=== PATIENT | female | born 1960 | race American Indian/Alaskan Native ===

== ENCOUNTER 2016-11-25 13:50 | Emergency (ER) | payer OTHER ==
[2016-11-25 13:50] VITALS: BMI 23.0
[2016-11-25 14:19] VITALS: TEMP 97.8; O2SAT 100
--- NOTE | 2016-11-25 14:49 | ED PDOC ---
Arrival/HPI - General Chief Complaint: Female Genitourinary Time Seen by Provider: 11/25/16 14:23 Historian: Patient - History of Present Illness Narrative History of Present Illness (Text): 11/25/16 14:48 56 year old female whose past medical history includes diabetes presents to the emergency department with dysuria and hematuria since yesterday. Contrary to triage, patient reports blood is associated with urination, and is not vaginal bleeding. Denies abdominal pain, fever, nausea, vomiting, or diarrhea. Time/Duration: 24 hours Symptom Onset: Sudden Symptom Course: Unchanged Modifying Factors (Text): None Past Medical History - Provider Review Nursing Documentation Reviewed: Yes - Infectious Disease Hx of Infectious Diseases: None - Cardiac Hx Hypertension: Yes - Pulmonary Hx Respiratory Disorders: No - Neurological Hx Neurological Disorder: No - HEENT Hx HEENT Disorder: No - Renal Hx Renal Disorder: No - Endocrine/Metabolic Hx Diabetes Mellitus Type 2: Yes - Hematological/Oncological Hx Blood Disorders: No - Integumentary Hx Dermatological Disorder: No - Musculoskeletal/Rheumatological Hx Musculoskeletal Disorders: Yes Hx Falls: Yes Other/Comment: left leg inury 4 years ago - Gastrointestinal Hx Gastrointestinal Disorders: No - Genitourinary/Gynecological Hx Genitourinary Disorders: No - Psychiatric Hx Depression: No Hx Emotional Abuse: No Hx Physical Abuse: No Hx Substance Use: Yes - Surgical History Hx Orthopedic Surgery: Yes (B/L KNEE) Hx Tubal Ligation: Yes - Anesthesia Hx Anesthesia: No Hx Anesthesia Reactions: No Hx Malignant Hyperthermia: No - Suicidal Assessment Feels Threatened In Home Enviroment: No Family/Social History - Physician Review Nursing Documentation Reviewed: Yes Family/Social History: Unknown Family HX Smoking Status: Smoker Currrent Status Unknown Hx Alcohol Use: Yes (had a drink prior to ED arrival) Hx Substance Use: Yes Allergies/Home Meds Allergies/Adverse Reactions: Allergies No Known Allergies Allergy (Verified 11/25/16 14:16) Home Medications: Home Meds Medication Instructions Recorded Confirmed Alendronate [Fosamax] 70 mg PO 12/05/12 12/05/12 Betaine HCl/Folic Acid/Methy 1 mg PO DAILY 12/05/12 12/05/12 [B6-Folic Acid] Calcium Carbonate/Vitamin D 1 tab PO DAILY 12/05/12 12/05/12 [Caltrate 600 + D 600 mg-200 Iu] Clonazepam [Klonopin] 0.5 mg PO Q12 PRN 12/05/12 12/05/12 Furosemide [Lasix] 20 mg PO DAILY 12/05/12 12/05/12 Ibuprofen 400 mg PO Q8 PRN 12/05/12 12/05/12 Insulin Glargine,Hum.rec.anlog 20 unit SC QAM 12/05/12 12/05/12 [Lantus] Lactulose 120 ml PO Q8 12/05/12 12/05/12 Multivitamin, Minerals, and 70 1 tab PO DAILY 12/05/12 12/05/12 [P.m. Multivit/Multimineral] Potassium Chloride [Klor-Con 10] 10 meq PO DAILY 12/05/12 12/05/12 Spironolactone 50 mg PO BID 12/05/12 12/05/12 Thiamine [Thiamine HCl] 100 mg PO DAILY 12/05/12 12/05/12 Tramadol Hydrochloride [Tramadol] 100 mg PO Q8 PRN 12/05/12 12/05/12 Review of Systems - Physician Review All systems were reviewed & negative as marked: Yes - Review of Systems Constitutional: absent: Fevers Gastrointestinal: absent: Abdominal Pain, Nausea Genitourinary Female: Dysuria, Hematuria Physical Exam Vital Signs Reviewed: Yes Vital Signs Temp Pulse Resp BP Pulse Ox 11/25/16 16:00 73 18 125/76 100 11/25/16 14:18 97.8 F 89 16 124/79 100 Temperature: Afebrile Blood Pressure: Normal Pulse: Regular Respiratory Rate: Normal Appearance: Positive for: Well-Appearing, Non-Toxic, Comfortable Pain Distress: None Mental Status: Positive for: Alert and Oriented X 3 - Systems Exam Head: Present: Atraumatic, Normocephalic Pupils: Present: PERRL Extroacular Muscles: Present: EOMI Conjunctiva: Present: Normal Mouth: Present: Moist Mucous Membranes Neck: Present: Normal Range of Motion Respiratory/Chest: Present: Clear to Auscultation, Good Air Exchange. No: Respiratory Distress, Accessory Muscle Use Cardiovascular: Present: Regular Rate and Rhythm, Normal S1, S2. No: Murmurs Abdomen: Present: Normal Bowel Sounds. No: Tenderness, Distention, Peritoneal Signs Back: Present: Paraspinal Tenderness (Left paralumbar ). No: CVA Tenderness Upper Extremity: Present: Normal Inspection. No: Cyanosis, Edema Lower Extremity: Present: Normal Inspection. No: Edema Neurological: Present: GCS=15, CN II-XII Intact, Speech Normal Skin: Present: Warm, Dry, Normal Color. No: Rashes Psychiatric: Present: Alert, Oriented x 3, Normal Insight, Normal Concentration Medical Decision Making - Lab Interpretations Microbiology Results: Microbiology Results 11/25/16 16:30 Urine Urine Culture - Final Escherichia Coli Lab Results: Lab Results 11/25/16 16:30: Urine Color Light brown, Urine Appearance Cloudy, Urine pH 7.0, Ur Specific [place] 1.020, Urine Protein 100 H, Urine Glucose (UA) Negative, Urine Ketones Trace H, Urine Blood Large H, Urine Nitrate Negative, Urine Bilirubin Moderate H, Urine Urobilinogen >=8.0, Ur Leukocyte Esterase Large H, Urine RBC Tntc, Urine WBC Tntc, Ur Epithelial Cells 1 - 3, Amorphous Sediment Few, Urine Bacteria Many, Urine Other Fiber - Medication Orders Current Medication Orders: Discontinued Medications Cephalexin Monohydrate (Keflex) 500 mg PO STAT STA PRN Reason: Protocol Stop: 11/25/16 17:16 Last Admin: 11/25/16 17:23 Dose: 500 mg - Dayronibe Statement The provider has reviewed the documentation as recorded by the Gerson Dawn Provider Scribe Attestation: All medical record entries made by the Dayornibneelam were at my direction and personally dictated by me. I have reviewed the chart and agree that the record accurately reflects my personal performance of the history, physical exam, medical decision making, and the department course for this patient. I have also personally directed, reviewed, and agree with the discharge instructions and disposition. Disposition/Present on Arrival - Present on Arrival Any Indicators Present on Arrival: No History of DVT/PE: No History of Uncontrolled Diabetes: No Urinary Catheter: No History of Decub. Ulcer: No History Surgical Site Infection Following: None - Disposition Have Diagnosis and Disposition been Completed?: Yes Diagnosis: UTI (urinary tract infection) Disposition: HOME/ ROUTINE Disposition Time: 17:52 Condition: STABLE Discharge Instructions (ExitCare): Urinary Tract Infection in Women (ED) Additional Instructions: Please follow up with your doctor tomorrow. Return to the ER for any worsening symptoms, fever, or for any other concerns. Prescriptions: Cephalexin [cephalexin] 500 mg PO BID #14 cap Phenazopyridine [Pyridium] 200 mg PO TID #6 tab Referrals: Roc Acosta DO [Staff Provider] - Follow up with primary
[2016-11-25 17:01] LABS: URINE BILIRUBIN MODERATE (NEGATIVE); URINE BLOOD LARGE (NEGATIVE); URINE GLUCOSE (UA) NEGATIVE (NEGATIVE); URINE KETONE TRACE mg/dL (NEGATIVE); URINE LEUKOCYTE ESTERASE LARGE Leu/uL (NEGATIVE); URINE PROTEIN 100 mg/dL (<30 mg/dL); URINE UROBILINOGEN >=8.0 E.U./dL (<1 E.U./dL)
[2016-11-25 17:03] LABS: URINE APPEARANCE CLOUDY (CLEAR); URINE COLOR LIGHT BROWN (YELLOW)
[2016-11-25 17:11] LABS: URINE AMORPHOUS SEDIMENT FEW; URINE BACTERIA MANY (NEG); URINE RBC TNTC /hpf (0-2); URINE WBC TNTC /hpf (0-6)
[2016-11-25 17:18] VITALS: BP 125/76; PULSE 73; RESP 18
== END 2016-11-25 17:52 | disposition home or self-care (01) ==
LOC: ED 13:50
DX: N39.0 Urinary tract infection, site not specified (principal)

== ENCOUNTER 2017-03-09 11:17 | Inpatient (IN) | payer OTHER ==
[2017-03-09 11:38] VITALS: BMI 23.4
--- NOTE | 2017-03-09 12:01 | ED PDOC ---
Arrival/HPI - General Chief Complaint: Weakness/Neurological Deficit Time Seen by Provider: 03/09/17 11:32 Historian: Patient - History of Present Illness Narrative History of Present Illness (Text): 03/09/17 11:55 A 56 year old female, whose past medical history includes diabetes type 2, hypertension, and etoh abuse, presents to the emergency department complaining of generalized weakness for 1 week. Patient reports she visited Dr. Acosta for blood work a few days ago, which revealed a low blood count. Also, patient mentions she experiences on and off swelling of her legs bilaterally. Patient believes swelling is what is causing weakness. Patient notes experiencing an episode of vomiting a week ago around the time weakness began, black stool 2 days ago, and chills. She denies of any fever, nausea, diarrhea, abdominal pain , shortness of breath, chest pain, or any other complaints. Patient also states she broke her knee a while ago. PMD: Dr. Acosta Time/Duration: 1 week Symptom Onset: Gradual Symptom Course: Unchanged Past Medical History - Provider Review Nursing Documentation Reviewed: Yes - Infectious Disease Hx of Infectious Diseases: None - Cardiac Hx Cardiac Disorders: Yes Hx Hypertension: Yes Hx Peripheral Edema: Yes - Pulmonary Hx Respiratory Disorders: No - Neurological Hx Neurological Disorder: No - HEENT Hx HEENT Disorder: No - Renal Hx Renal Disorder: No - Endocrine/Metabolic Hx Endocrine Disorders: Yes Hx Diabetes Mellitus Type 2: Yes - Hematological/Oncological Hx Blood Disorders: Yes Hx Anemia: Yes Hx Blood Transfusions: No - Integumentary Hx Dermatological Disorder: No - Musculoskeletal/Rheumatological Hx Musculoskeletal Disorders: Yes Hx Falls: Yes Other/Comment: left leg inury 4 years ago - Gastrointestinal Hx Gastrointestinal Disorders: Yes - Genitourinary/Gynecological Hx Genitourinary Disorders: No - Psychiatric Hx Depression: No Hx Emotional Abuse: No Hx Physical Abuse: No Hx Substance Use: Yes - Surgical History Hx Orthopedic Surgery: Yes (B/L KNEE) Hx Tubal Ligation: Yes Other/Comment: gallstones removed. b/l laser knee surgery - Anesthesia Hx Anesthesia: Yes Hx Anesthesia Reactions: No Hx Malignant Hyperthermia: No - Suicidal Assessment Feels Threatened In Home Enviroment: No Family/Social History - Physician Review Nursing Documentation Reviewed: Yes Family/Social History: No Known Family HX Smoking Status: Current Some Days Smoker Hx Alcohol Use: Yes (had a drink prior to ED arrival) Frequency of alcohol use: Few days per week Hx Substance Use: Yes Allergies/Home Meds Allergies/Adverse Reactions: Allergies No Known Allergies Allergy (Verified 03/09/17 11:27) Home Medications: Home Meds Medication Instructions Recorded Confirmed Clonazepam [Klonopin] 0.5 mg PO Q12 PRN 12/05/12 03/09/17 Furosemide [Lasix] 20 mg PO DAILY 12/05/12 03/09/17 Insulin Glargine,Hum.rec.anlog 20 unit SC QAM 12/05/12 03/09/17 [Lantus] Lactulose 120 ml PO Q8 12/05/12 03/09/17 Multivitamin, Minerals, and 70 1 tab PO DAILY 12/05/12 03/09/17 [P.m. Multivit/Multimineral] Spironolactone 50 mg PO BID 12/05/12 03/09/17 Thiamine [Thiamine HCl] 100 mg PO DAILY 12/05/12 03/09/17 Insulin Glargine,Hum.rec.anlog 0 units SC DAILY 03/09/17 03/09/17 [My Frank] Review of Systems - Physician Review All systems were reviewed & negative as marked: Yes - Review of Systems Constitutional: Night Sweats, Other (weakness). absent: Fevers Eyes: Normal ENT: Normal Respiratory: absent: SOB Cardiovascular: absent: Chest Pain Gastrointestinal: Stool Changes (black stool 2 days ago), Vomiting (episode of vomiting 1 week ago, around time weakness began). absent: Abdominal Pain, Diarrhea, Nausea Genitourinary Female: absent: Dysuria Musculoskeletal: Other (b/l leg swelling) Skin: Normal Neurological: Normal Endocrine: Normal Hemo/Lymphatic: Other (saw black stools 2 days ago, which resolved) Physical Exam Vital Signs Reviewed: Yes Vital Signs Temp Pulse Resp BP Pulse Ox 03/09/17 13:00 95 H 18 132/75 97 03/09/17 11:27 98.0 F 91 H 18 145/67 97 Temperature: Afebrile Blood Pressure: Normal Pulse: Regular Respiratory Rate: Normal Appearance: Positive for: Well-Appearing, Other (AOB is present) Pain Distress: None Mental Status: Positive for: Alert and Oriented X 3 - Systems Exam Head: Present: Atraumatic, Normocephalic Pupils: Present: PERRL Conjunctiva: Present: Icteric (mild scleral icteric of right eye; mild conjuctiva pallor) Mouth: Present: Moist Mucous Membranes Pharnyx: Present: Normal. No: ERYTHEMA, EXUDATE Neck: Present: Normal Range of Motion Respiratory/Chest: Present: Clear to Auscultation, Good Air Exchange. No: Respiratory Distress, Accessory Muscle Use Cardiovascular: Present: Regular Rate and Rhythm, Normal S1, S2. No: Murmurs Abdomen: Present: Normal Bowel Sounds. No: Tenderness, Distention, Peritoneal Signs Back: Present: Normal Inspection Upper Extremity: Present: Normal Inspection. No: Cyanosis, Edema Lower Extremity: Present: Edema (2+ edema b/l) Neurological: Present: GCS=15, CN II-XII Intact, Speech Normal Skin: Present: Warm, Dry, Normal Color. No: Rashes Psychiatric: Present: Alert, Oriented x 3 Medical Decision Making ED Course and Treatment: 03/09/17 12:00 Impression: 56 year old female with generalized weakness. Physical exam shows lower extremity 2+ b/l edema; scleral icterus and pallor are present. Plan: -- EKG -- Chest X-ray -- Lower Extremity Ultrasound -- Labs -- Urinalysis -- Reassess and disposition Prior Visits: Notes and results from previous visits were reviewed. Patient was last seen in the emergency department on 11/25/2016 for dysuria and hematuria. Patient was discharge home. Progress Notes: 03/09/2017 12:08 EKG: Ordered, reviewed, and independently interpreted the EKG. Rate : 94 BPM Rhythm : NSR Interpretation : No ST-segment elevations or depressions, no T-wave inversions; borderline left axis deviation; QTc is 480 Comparison : No previous EKG for comparison. 03/09/2017 12:30 Chest X-ray IMPRESSION: No active pulmonary disease. Top-normal heart size. Dictator: Radha Castillo MD 03/09/17 13:18 Patient with noted history with Hgb of 7.3 as well as low K and Mg and LFT abnormalities. She was guaiac positive on exam. Low Hgb - patient consented for blood transfusion; discussed risks and benefits of transfusion. Patient will need to be admitted for extensive GI evaluation; will place on remote tele given the electrolyte abnormalities. Discussed with Dr. Acosta for admission to his service. - Lab Interpretations Lab Results: 03/09/17 12:26 03/09/17 12:26 Lab Results 03/09/17 12:26: Blood Type Pending, Antibody Screen Pending, BBK History Checked No verified bt 03/09/17 12:26: Alcohol, Quantitative 64 H 03/09/17 12:26: Sodium 146, Potassium 2.9 L*, Chloride 110 H, Carbon Dioxide 22 , Anion Gap 17, BUN 11, Creatinine 0.8, Est GFR ( Amer) > 60, Est GFR ( Non-Af Amer) > 60, Random Glucose 111 H, Calcium 8.6, Magnesium 1.0 L*, Total Bilirubin 2.6 H, Direct Bilirubin 2.0 H, AST 107 H, ALT 46, Alkaline Phosphatase 234 H, Lactate Dehydrogenase 748 H, Total Creatine Kinase 234 H, CK- MB (CK-2) 7.0 H, CK-MB (CK-2) % 3.0, Troponin I < 0.01, NT-Pro-B Natriuret Pep 238, Total Protein 7.2, Albumin 3.2, Globulin 4.0, Albumin/Globulin Ratio 0.8 L , Lipase 255 03/09/17 12:26: PT 13.9 H, INR 1.29 H, APTT 30.6 03/09/17 12:26: WBC 2.6 L*, RBC 2.30 L, Hgb 7.7 L, Hct 23.3 L, MCV 101.3, MCH 33.5, MCHC 33.0, RDW 15.2 H, Plt Count 98 L, MPV 9.9, Gran % 52.5, Lymph % (Auto ) 37.5 H, [place] % (Auto) 6.6 H, Eos % (Auto) 1.9, Baso % (Auto) 1.5, Gran # 1.36 L, Lymph # 1.0 L, [place] # 0.2, Eos # 0.1, Baso # 0.04 I have reviewed the lab results: Yes - RAD Interpretation Radiology Orders: 03/09/17 11:52 CHEST PORTABLE [RAD] Stat DUPLEX LOWER EXTRM VEIN BILAT [US] Stat - Medication Orders Current Medication Orders: Magnesium Sulfate 2 gm/ Sodium (Chloride) 104 mls @ 102 mls/hr IVPB ONCE ONE Stop: 03/09/17 13:58 Potassium Chloride (Potassium Chloride 10 Meq/100 Ml) 10 meq in 100 mls @ 100 mls/hr IVPB Q2H RHYS Stop: 03/09/17 15:59 Discontinued Medications Potassium Chloride (Potassium Chloride Oral Soln) 40 meq PO STAT STA Stop: 03/09/17 13:00 - Scribe Statement The provider has reviewed the documentation as recorded by the Dayronibneelam Jones Provider Scribe Attestation: All medical record entries made by the Scribe were at my direction and personally dictated by me. I have reviewed the chart and agree that the record accurately reflects my personal performance of the history, physical exam, medical decision making, and the department course for this patient. I have also personally directed, reviewed, and agree with the discharge instructions and disposition. Disposition/Present on Arrival - Present on Arrival Any Indicators Present on Arrival: No History of DVT/PE: No History of Uncontrolled Diabetes: No Urinary Catheter: No History of Decub. Ulcer: No History Surgical Site Infection Following: None - Disposition Have Diagnosis and Disposition been Completed?: Yes Diagnosis: Anemia, Electrolyte abnormality Disposition: HOSPITALIZED Disposition Time: 13:00 Patient Plan: Admission Condition: FAIR Referrals: PCP,NO [Primary Care Provider] - Follow up with primary Forms: [employer] (Macedonian)
[2017-03-09 12:31] LABS: BASO # 0.04 K/mm3 (0.0-2.0); BASO % 1.5 % (0.0-3.0); EOS # 0.1 (0.0-0.7); EOS % 1.9 % (1.5-5.0); GRAN # 1.36 (1.4-6.5); GRAN % 52.5 % (50.0-68.0); LYMPH % 37.5 % (22.0-35.0); MEAN CELL VOLUME 101.3 fl (80.0-105.0); MEAN CORPUSCULAR HEMOGLOBIN 33.5 pg (25.0-35.0); MEAN PLATELET VOLUME 9.9 fl (7.0-11.0); MONO # 0.2 (0.1-0.6); MONO % 6.6 % (1.0-6.0); RED CELL DISTRIBUTION WIDTH 15.2 % (11.5-14.5)
--- NOTE | 2017-03-09 12:31 | RAD ---
HISTORY: anemia, LE swelling COMPARISON: 09/06/2013 FINDINGS: LUNGS: No active pulmonary disease. PLEURA: No significant pleural effusion identified, no pneumothorax apparent. CARDIOVASCULAR: Probable top-normal heart size OSSEOUS STRUCTURES: No significant abnormalities. VISUALIZED UPPER ABDOMEN: Normal. OTHER FINDINGS: None. IMPRESSION: No active d pulmonary isease. Top-normal heart size
[2017-03-09 12:42] LABS: ALB/GLOB RATIO 0.8 (1.1-1.8); ALKALINE PHOSPHATASE 234 U/L (38-126); ALT/SGPT 46 U/L (7-56); AST/SGOT 107 U/L (14-36); BILIRUBIN,TOTAL 2.6 mg/dL (0.2-1.3); BLOOD UREA NITROGEN 11 mg/dL (7-21); CALCIUM 8.6 mg/dL (8.4-10.5); CARBON DIOXIDE 22 mmol/L (21-33); CHLORIDE 110 mmol/L (98-107); GFR AFRICAN-AMERICAN > 60; GLUCOSE,RANDOM 111 mg/dL (70-110); HEMATOCRIT 23.3 % (36.0-48.0); LIPASE 255 U/L (23-300); SODIUM 146 mmol/L (132-148); TOTAL PROTEIN 7.2 g/dL (5.8-8.3); WHITE BLOOD COUNT 2.6 10^3/ul (4.5-11.0)
[2017-03-09 12:47] LABS: POTASSIUM 2.9 mmol/L (3.6-5.0)
[2017-03-09 12:48] LABS: INR 1.29 (0.93-1.08); PARTIAL THROMBOPLASTIN TIME 30.6 Seconds (23.7-30.8)
[2017-03-09 12:57] LABS: TROPONIN I < 0.01 ng/mL
[2017-03-09] MEDS ORDERED: Magnesium Sulfate 2 GM in Sodium Chloride 0.9% 100 ML IVPB ONE (12:57)
[2017-03-09] MEDS ORDERED: Potassium Chloride 40 mEq/30 ml LIQ UD PO STA (12:59)
[2017-03-09] MEDS: Sodium Chloride 0.45% 1,000 ML IV SCH (14:09)
--- NOTE | 2017-03-09 14:38 | HP ---
HISTORY OF PRESENT ILLNESS: I know the patient very well from the office. I am trying to get her to come to the hospital for about a week now. Her hemoglobin is 7 with a positive stool for occult blood, and she is throwing up blood and there is blood in the bowels. She finally agreed to come to the emergency room because she was feeling a little lightheaded, and I think she needs to be transfused and scoped with GI, I think she is having any other bleeding ulcers or worse. PAST MEDICAL HISTORY: Diabetes, hypertension, alcohol abuse, and she sounds drunk right now, so the alcohol level will be elevated. She also has swelling of her legs, black stools for 2 days, but is longer than that. She has knee pain. She also has hypertension, diabetes, anemia history. She had falls. She has a left leg injury 4 years ago. She has substance abuse with alcohol, bilateral knee surgery, tubal ligation, gallstones removed, bilateral laser knee surgery. FAMILY HISTORY: No known family history. SOCIAL HISTORY: She still smokes. She still drinks. Does substance abuse. ALLERGIES: NO KNOWN DRUG ALLERGIES. MEDICATIONS: Supposed to be on Klonopin, Lasix, Lantus, lactulose, multivitamins, spironolactone, thiamine, and [place]. REVIEW OF SYSTEMS: She is pleasant. She may be lightheaded, well appearing. Appearing little bit happy _148 she is drunk, but she is alert and fairly oriented to x3. No acute vision changes or hearing changes. No sore throat. No chest pain. No shortness of breath. No abdominal pain. No extremity pain at this time. She is little lightheaded and she is having black stools. PHYSICAL EXAMINATION VITAL SIGNS: 98 temperature, 95 pulse, 18 respiratory rate, 132/75 blood pressure and 97% O2 saturation on room air. HEENT: Head is atraumatic, normocephalic. Pupils are equally reactive to light. Throat is moist. NECK: Supple. Thyroid is midline. No palpable or appreciable lymphadenopathy. HEART: Regular rate. Normal S1 and S2. LUNGS: Decreased breath sounds bilaterally, but clear to auscultation. ABDOMEN: Soft and nontender, positive bowel sounds. No guarding. No rebound, but she is having some black stools. EXTREMITIES: Trace edema bilaterally. NEUROLOGIC: GCS of 15. Cranial nerves II through XII grossly intact. LABORATORY DATA: Chest x-ray showed no active disease. We have alcohol level of 64. Sodium 146; potassium 2.9, replace the potassium; BUN 11; creatinine 0.8; GFR is greater than 60, sugar is 111, calcium is 8.6, magnesium is low, want to give her rider; total bilirubin is 2.6, direct bilirubin is 2, AST is 107, ALT is 46, alkaline phosphatase 234, lactate dehydrogenase 748, total creatinine kinase is 234. Troponin is less than 0.01. BNP is 238. Total protein 7.0. Albumin is 3.2. Lipase is 255. INR is 1.29, elevated. White count is 2.6 at calculated, hemoglobin 7.7 with hematocrit of 23.3 and platelets are 98. She is going to have a consult with GI and Cardiology. She will be put on telemetry bed. She will be type and cross matched and transfuse with 2 units of packed red blood cells. Magnesium was given, potassium was given already, we will check it tomorrow. Ultrasound of the lower extremities also done. I will put her back on some of her medications and insulin coverage. She is here for acute GI bleed, probably acute loss anemia secondary to GI bleeding, could be an ulcer, she will probably need to be scoped. Roc Acosta DO
[2017-03-09] MEDS: Insulin Reg-HIGH-Coverage SC SCH ×2 (16:19→22:23)
--- NOTE | 2017-03-09 17:50 | US ---
PROCEDURE: Bilateral lower extremity venous duplex Doppler. HISTORY: b/L LE swelling COMPARISON: None available. TECHNIQUE: Bilateral common femoral, superficial femoral, popliteal and posterior tibial veins were evaluated. Flow was assessed with color Doppler, compressibility, assessment of phasic flow and augmentation response. FINDINGS: COMMON FEMORAL VEIN: Right CFV: Normal direction of flow, compressibility and augmentation response. Left CFV: Normal direction of flow, compressibility and augmentation response. SUPERFICIAL FEMORAL VEIN: Right SFV: Normal direction of flow, compressibility and augmentation response. Left SFV: Normal direction of flow, compressibility and augmentation response. POPLITEAL VEIN: Right Popliteal: Normal direction of flow, compressibility and augmentation response. Left Popliteal: Normal direction of flow, compressibility and augmentation response. POSTERIOR TIBIAL VEIN: Right PTV: Normal direction of flow, compressibility and augmentation response. Left PTV: Normal direction of flow, compressibility and augmentation response. OTHER FINDINGS: There is diffuse subcutaneous edema. IMPRESSION: No evidence of deep venous thrombosis.
[2017-03-09] MEDS ORDERED: Pneumococcal 23-Valent Vaccine IM ONE (19:39)
[2017-03-10 00:59] LABS: URINE BILIRUBIN NEGATIVE (NEGATIVE); URINE BLOOD NEGATIVE (NEGATIVE); URINE GLUCOSE (UA) NEGATIVE (NEGATIVE); URINE KETONE NEGATIVE (NEGATIVE); URINE LEUKOCYTE ESTERASE NEGATIVE Leu/uL (NEGATIVE); URINE PROTEIN NEGATIVE mg/dL (<30 mg/dL)
[2017-03-10 01:14] LABS: URINE APPEARANCE CLEAR (CLEAR); URINE COLOR YELLOW (YELLOW)
--- NOTE | 2017-03-10 01:53 | CARD ---
APPROVED REPORT EKG Measurement Heart [id number] <Conclusion> Normal sinus rhythm Possible Left atrial enlargement Prolonged QT Abnormal ECG
[2017-03-10 06:21] LABS: HEMATOCRIT 24.7 % (36.0-48.0); MEAN CORPUSCULAR HEMOGLOBIN 32.3 pg (25.0-35.0); MEAN PLATELET VOLUME 10.4 fl (7.0-11.0); RED CELL DISTRIBUTION WIDTH 18.8 % (11.5-14.5)
[2017-03-10 06:52] LABS: ALB/GLOB RATIO 0.7 (1.1-1.8); ALKALINE PHOSPHATASE 168 U/L (38-126); ALT/SGPT 44 U/L (7-56); AST/SGOT 66 U/L (14-36); BILIRUBIN,TOTAL 3.7 mg/dL (0.2-1.3); BLOOD UREA NITROGEN 9 mg/dL (7-21); CALCIUM 8.1 mg/dL (8.4-10.5); CARBON DIOXIDE 23 mmol/L (21-33); CHLORIDE 111 mmol/L (95-110); GFR AFRICAN-AMERICAN > 60; GLUCOSE,RANDOM 83 mg/dL (70-110); PHOSPHOROUS 3.3 mg/dL (2.5-4.5); SODIUM 141 mmol/L (132-148); TOTAL PROTEIN 5.8 g/dL (5.8-8.3)
[2017-03-10 07:28] LABS: WHITE BLOOD COUNT 1.6 10^3/ul (4.5-11.0)
[2017-03-10] MEDS: Insulin Reg-HIGH-Coverage SC SCH ×4 (07:40→22:10)
[2017-03-10 07:43] LABS: POTASSIUM 2.6 mmol/L (3.6-5.0)
[2017-03-10 07:44] LABS: BASO % 1.2 % (0.0-3.0); GRAN % 45.8 % (50.0-68.0); LYMPH % 40.9 % (22.0-35.0); MONO % 9.1 % (1.0-6.0)
[2017-03-10 07:45] LABS: BASO # 0.02 K/mm3 (0.0-2.0); EOS # 0.1 (0.0-0.7); GRAN # 0.75 (1.4-6.5); LYMPH # 0.7 (1.2-3.4); MONO # 0.2 (0.1-0.6)
--- NOTE | 2017-03-10 11:53 | PN ---
DATE: SUBJECTIVE: The patient was resting comfortably in bed. She is n.p.o. still. We are going to try and do an endoscopy and colonoscopy tomorrow with GI. She is currently on Aldactone, Dulcolax, GoLYTELY, insulin coverage, Klonopin, Lasix, potassium, IV fluids, and vitamin B1. She has less abdominal pain, no more nauseousness, no more throwing of blood, and no blood she tells me. PHYSICAL EXAMINATION VITAL SIGNS: She has 98 temperature, 66 pulse, 133/75 blood pressure, 20 respiratory rate, and 99% O2 saturation. HEENT: Head is atraumatic and normocephalic. HEART: Regular rate. LUNGS: Clear to auscultation. ABDOMEN: Soft and nontender. Positive bowel sounds. EXTREMITIES: No edema. LABORATORY DATA: She has a 1.6 white count, I called in hematology due to her leukopenia. Hemoglobin is up to 8.4 after two units, I am going to give her another unit of packed red blood cells. Hematocrit 24.7, platelets are 75 low it was 98 yesterday. She has 141 sodium, potassium 2.6 it went down, I gave another two riders of potassium today. BUN is 9, creatinine 0.6, GFR is greater than 60, sugar is 83, calcium is 8.1, phosphorus is 3.3, magnesium 3.7, AST is better 66, ALT 44, alk phos is better at 168, magnesium also improved to 1.2, total protein is 5.8, and troponin is less than 0.01. She is being seen by GI. An ultrasound of the abdomen is pending. ASSESSMENT AND PLAN: I believe the plan is for an upper and lower endoscopy tomorrow, transfuse of one more unit, we will check her labs tomorrow, and hopefully will get discharged tomorrow afternoon. She is here for anemia secondary to acute blood loss and she is an alcoholic. Roc Acosta DO [facility]
[2017-03-10] MEDS: Multivitamin With Minerals Tab PO SCH (12:46)
[2017-03-10] MEDS ORDERED: Peg-Electrolyte Oral Soln 4L (Golytely) PO ONE (13:00)
[2017-03-10] MEDS ORDERED: Bisacodyl 5mg EC Tab PO ONE (13:00)
[2017-03-10] MEDS: Sodium Chloride 0.45% 1,000 ML IV SCH (15:09)
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
[2017-03-10] MEDS: Pantoprazole 40 mg EC Tab PO SCH (17:52)
--- NOTE | 2017-03-10 17:54 | CARD ---
APPROVED REPORT EXAM: Two-dimensional and M-mode echocardiogram with Doppler and color Doppler. INDICATION Dyspnea 2D DIMENSIONS Left Atrium (2D)4.3 (1.6-4.0cm)IVSd1.1 (0.7-1.1cm) LVDd4.4 (3.9-5.9cm)PWd1.3 (0.7-1.1cm) LVDs2.6 (2.5-4.0cm)FS (%) 41.3 % LVEF (%)72.4 (>50%) M-Mode DIMENSIONS Aortic Root3.10 (2.2-3.7cm)Aortic Cusp Exc.1.60 (1.5-2.0cm) Aortic Valve AoV Peak Ujousvkm753.0cm/sAoV VTI54.9cmAO Peak GR.22mmHg LVOT Peak Iwqudwfr054.0cm/sLVOT VTI32.00cmAO Mean GR.13mmHg AI P 1/2 [id number] Mitral Valve MV E Qfgjyaab41.9cm/sMV A Ovktbmgo47.8cm/sE/A ratio0.9 TDI Lateral E' Peak V8.87cm/sMedial E' Peak V6.73cm/sE/Lateral E'9.7 E/Medial E'12.8 Pulmonary Valve PV Peak Oenzxjpt219.0cm/sPV Peak Grad.5mmHg Tricuspid Valve TR Peak Qkbxpbry553tl/sRAP [id number] Peak Gr.33mmHg [id number] LEFT VENTRICLE The left ventricle is normal size. There is normal left ventricular wall thickness. The left ventricular function is normal. The left ventricular ejection fraction is within the normal range. There is normal LV segmental wall motion. Transmitral Doppler flow pattern is Grade I-abnormal relaxation pattern. RIGHT VENTRICLE The right ventricle is normal size. There is normal right ventricular wall thickness. The right ventricular systolic function is normal. ATRIA The left atrium is mildly dilated. The right atrium size is normal. AORTIC VALVE The aortic valve is moderately thickened. There is trace to mild aortic regurgitation. MITRAL VALVE The mitral valve is mildly thickened. There is no mitral valve regurgitation noted. TRICUSPID VALVE There is mild tricuspid regurgitation. There is mild pulmonary hypertension. GREAT VESSELS The aortic root is normal in size. <Conclusion> The left ventricle is normal size. There is normal left ventricular wall thickness. The left ventricular function is normal. The left ventricular ejection fraction is within the normal range. There is normal LV segmental wall motion. Transmitral Doppler flow pattern is Grade I-abnormal relaxation pattern. The aortic valve is moderately thickened. There is trace to mild aortic regurgitation. There is mild tricuspid regurgitation. There is mild pulmonary hypertension.
--- NOTE | 2017-03-10 18:32 | US ---
PROCEDURE: Portal vein duplex ultrasound. CLINICAL HISTORY: Cirrhosis. Deteriorating liver function. Evaluate for portal vein thrombosis. PHYSICIAN(S): Francisco Garg M.D. FINDINGS: The liver parenchyma is extremely heterogeneous consistent with cirrhosis. No obvious masses noted on these limited images. The extrahepatic portal vein is patent with hepatopetal flow. The hepatic artery is patent. Limited imaging of the central patent veins are patent. There is a large recannulized umbilical vein. The spleen is enlarged. There is no ascites in the upper abdomen. IMPRESSION: 1. Patent portal vein with hepatopetal flow. 2. Recannulized umbilical vein
[2017-03-11 00:21] LABS: BASO # 0.02 K/mm3 (0.0-2.0); BASO % 0.6 % (0.0-3.0); EOS # 0.1 (0.0-0.7); EOS % 2.2 % (1.5-5.0); GRAN # 2.03 (1.4-6.5); GRAN % 56.5 % (50.0-68.0); HEMATOCRIT 32.2 % (36.0-48.0); LYMPH # 1.1 (1.2-3.4); LYMPH % 31.5 % (22.0-35.0); MEAN CORPUSCULAR HEMOGLOBIN 32.2 pg (25.0-35.0); MEAN CORPUSCULAR HGB CONC 33.9 g/dl (31.0-37.0); MEAN PLATELET VOLUME 9.9 fl (7.0-11.0); MONO # 0.3 (0.1-0.6); MONO % 9.2 % (1.0-6.0); RED CELL DISTRIBUTION WIDTH 19.1 % (11.5-14.5); WHITE BLOOD COUNT 3.6 10^3/ul (4.5-11.0)
[2017-03-11] MEDS: Pantoprazole 40 mg EC Tab PO SCH (06:20)
[2017-03-11 06:52] LABS: BASO # 0.02 K/mm3 (0.0-2.0); BASO % 0.7 % (0.0-3.0); EOS # 0.1 (0.0-0.7); EOS % 2.6 % (1.5-5.0); GRAN # 1.32 (1.4-6.5); GRAN % 49.1 % (50.0-68.0); HEMATOCRIT 28.1 % (36.0-48.0); LYMPH % 38.7 % (22.0-35.0); MEAN CELL VOLUME 94.9 fl (80.0-105.0); MEAN CORPUSCULAR HEMOGLOBIN 31.8 pg (25.0-35.0); MEAN CORPUSCULAR HGB CONC 33.5 g/dl (31.0-37.0); MONO # 0.2 (0.1-0.6); MONO % 8.9 % (1.0-6.0); RED CELL DISTRIBUTION WIDTH 19.1 % (11.5-14.5)
[2017-03-11 06:55] LABS: WHITE BLOOD COUNT 2.7 10^3/ul (4.5-11.0)
[2017-03-11 06:59] LABS: INR 1.5 (0.93-1.08)
[2017-03-11 07:13] LABS: ALB/GLOB RATIO 0.7 (1.1-1.8); ALKALINE PHOSPHATASE 130 U/L (38-126); ALT/SGPT 36 U/L (7-56); AST/SGOT 58 U/L (14-36); BILIRUBIN,TOTAL 3.2 mg/dL (0.2-1.3); BLOOD UREA NITROGEN 6 mg/dL (7-21); CALCIUM 7.8 mg/dL (8.4-10.5); CARBON DIOXIDE 25 mmol/L (21-33); CHLORIDE 109 mmol/L (98-107); GFR AFRICAN-AMERICAN > 60; GLUCOSE,RANDOM 83 mg/dL (70-110); SODIUM 141 mmol/L (132-148); TOTAL PROTEIN 5.9 g/dL (5.8-8.3)
[2017-03-11 07:21] LABS: IRON 44 ug/dL (45-180)
[2017-03-11 07:36] VITALS: BP 140/80; RESP 20; TEMP 99.2; O2SAT 96
[2017-03-11] MEDS: Insulin Reg-HIGH-Coverage SC SCH ×2 (08:45→14:20)
[2017-03-11] MEDS: Multivitamin With Minerals Tab PO SCH (10:49)
[2017-03-11] MEDS: Magnesium Sulfate 1 gm in D5W 1 GM/100 ML BAG IVPB SCH ×2 (10:49→17:04)
--- NOTE | 2017-03-11 11:13 | CP.PCM.PN ---
<Deepa Barron - Last Filed: 03/11/17 11:17> Subjective - Date & Time of Evaluation Date of Evaluation: 03/11/17 Time of Evaluation: 09:00 - Subjective Subjective: PGY 4 GI Follow-up Pt seen and examined bedside No new complaints tolerating diet s/p 3 units PRBC denies any hematemsis, coffee-ground emesis, or melena ROS: 10 point ROS conducted neg other than above Objective - Vital Signs/Intake and Output Vital Signs (last 24 hours): Temp Pulse Resp BP Pulse Ox 99.2 F 81 20 140/80 96 03/11/17 06:00 03/11/17 06:00 03/11/17 06:00 03/11/17 10:49 03/11/17 06:00 Intake and Output: 03/11/17 03/11/17 06:59 18:59 Intake Total 1500 Output Total 1150 Balance 350 - Medications Medications: Current Medications Clonazepam (Klonopin) 0.5 mg PO Q12 PRN PRN Reason: Anxiety Ferrous Sulfate (Feosol) 324 mg PO DAILY [facility] Last Admin: 03/11/17 10:49 Dose: 324 mg Furosemide (Lasix) 20 mg PO DAILY [facility] Last Admin: 03/11/17 10:49 Dose: 20 mg Sodium Chloride (Sodium Chloride 0.45%) 1,000 mls @ 40 mls/hr IV .Q24H [facility] Last Admin: 03/10/17 15:09 Dose: 40 mls/hr Magnesium Sulfate/Dextrose (Magnesium Sulfate 1 Gm/100 Ml D5w) 1 gm in 100 mls @ 100 mls/hr IVPB Q2 [facility] Stop: 03/11/17 12:59 Last Admin: 03/11/17 10:49 Dose: 100 mls/hr Insulin Human Regular (Humulin R High) 0 units SC ACHS [facility] PRN Reason: Protocol Last Admin: 03/11/17 08:45 Dose: Not Given Multivitamins/Minerals (Therapeutic-M Tab) 1 tab PO DAILY [facility] Last Admin: 03/11/17 10:49 Dose: 1 tab Pantoprazole Sodium (Protonix Ec Tab) 40 mg PO 0600,1600 [facility] Last Admin: 03/11/17 06:20 Dose: 40 mg Spironolactone (Aldactone) 50 mg PO BID [facility] Last Admin: 03/11/17 10:49 Dose: 50 mg Thiamine HCl (Vitamin B1 Tab) 100 mg PO DAILY [facility] Last Admin: 03/11/17 10:49 Dose: 100 mg - Labs Labs: 03/11/17 06:10 03/11/17 06:10 PT 16.2 Seconds (9.9-11.8) H 03/11/17 06:10 INR 1.50 (0.93-1.08) H 03/11/17 06:10 APTT 30.6 Seconds (23.7-30.8) 03/09/17 12:26 - Constitutional Appears: Well, No Acute Distress - Head Exam Head Exam: ATRAUMATIC, NORMOCEPHALIC - Eye Exam Eye Exam: Normal appearance - ENT Exam ENT Exam: Mucous Membranes Moist, Normal Exam - Respiratory Exam Respiratory Exam: Clear to Ausculation Bilateral, NORMAL BREATHING PATTERN. absent: Rales, Rhonchi, Wheezes, Respiratory Distress - Cardiovascular Exam Cardiovascular Exam: REGULAR RHYTHM, +S1, +S2 - GI/Abdominal Exam GI & Abdominal Exam: Soft, Normal Bowel Sounds. absent: Firm, Guarding, Rigid, Tenderness, Organomegaly - Extremities Exam Extremities Exam: absent: Joint Swelling, Pedal Edema - Neurological Exam Neurological Exam: Alert, Awake, Oriented x3 - Psychiatric Exam Psychiatric exam: Normal Affect, Normal Mood - Skin Skin Exam: Dry, Intact, Normal Color, Warm Assessment and Plan - Assessment and Plan (Free Text) Assessment: Lucila Prieto is a 56F w/ hx of HTN, Etoh abuse who presented with anemia and fatigue. She was found to have elevated LFTS and recent episode of hematemsis. She also has pancytopenia likely 2/2 ETOH vs cirrhosis. 1. Alcoholic Cirrhosis 2. Elevated LFTs likely 2/2 to the above 3. Probable Liver cirrhosis 2/2 ETOH 4. Macrocytic anemia DDx: ETOH, b12 def, folate, mixed etiology with iron def 5. Upper GI bleed, hgb stable, DDx: variceal vs PUD, vs AVM, vs malignancy 6. Pancytopenia Plan: -hepapitis panel, neg -autoimmune hepatatis blood work pending -Abd U/S reveals cirrohsis, but portal vein intact -will hold on EGD and colonoscopy for now 2/2 Leukopenia and increased risk -Continue supportive care -MELD 15 DF: 22.5 based on 03/11/17 labs -Will hold on steroids as DF < 32 -continue lactulose PO, tritrate to 2-3 BM daily -advance diet as tolerated -Recommend aggressive electrolyte replenishment -Recommend restrictive transfusion threshold hgb of 7, if pts remained asymptomatic, especially if pt has possible varices -recommend colonscopy and EGD as outpt -f/u in the office with Dr. Jeronimo in 2-4 weeks -consulted on alcohol cessation D/W Dr. Miller <Valerio Miller - Last Filed: 03/11/17 11:33> Objective - Vital Signs/Intake and Output Vital Signs (last 24 hours): Temp Pulse Resp BP Pulse Ox 99.2 F 81 20 140/80 96 03/11/17 06:00 03/11/17 06:00 03/11/17 06:00 03/11/17 10:49 03/11/17 06:00 Intake and Output: 03/11/17 03/11/17 06:59 18:59 Intake Total 1500 Output Total 1150 Balance 350 - Medications Medications: Current Medications Clonazepam (Klonopin) 0.5 mg PO Q12 PRN PRN Reason: Anxiety Ferrous Sulfate (Feosol) 324 mg PO DAILY [facility] Last Admin: 03/11/17 10:49 Dose: 324 mg Furosemide (Lasix) 20 mg PO DAILY [facility] Last Admin: 03/11/17 10:49 Dose: 20 mg Sodium Chloride (Sodium Chloride 0.45%) 1,000 mls @ 40 mls/hr IV .Q24H [facility] Last Admin: 03/10/17 15:09 Dose: 40 mls/hr Magnesium Sulfate/Dextrose (Magnesium Sulfate 1 Gm/100 Ml D5w) 1 gm in 100 mls @ 100 mls/hr IVPB Q2 [facility] Stop: 03/11/17 12:59 Last Admin: 03/11/17 10:49 Dose: 100 mls/hr Insulin Human Regular (Humulin R High) 0 units SC ACHS [facility] PRN Reason: Protocol Last Admin: 03/11/17 08:45 Dose: Not Given Multivitamins/Minerals (Therapeutic-M Tab) 1 tab PO DAILY [facility] Last Admin: 03/11/17 10:49 Dose: 1 tab Pantoprazole Sodium (Protonix Ec Tab) 40 mg PO 0600,1600 [facility] Last Admin: 03/11/17 06:20 Dose: 40 mg Spironolactone (Aldactone) 50 mg PO BID [facility] Last Admin: 03/11/17 10:49 Dose: 50 mg Thiamine HCl (Vitamin B1 Tab) 100 mg PO DAILY [facility] Last Admin: 03/11/17 10:49 Dose: 100 mg - Labs Labs: 03/11/17 06:10 03/11/17 06:10 PT 16.2 Seconds (9.9-11.8) H 03/11/17 06:10 INR 1.50 (0.93-1.08) H 03/11/17 06:10 APTT 30.6 Seconds (23.7-30.8) 03/09/17 12:26 Attending/Attestation - Attestation I have personally seen and examined this patient.: Yes I have fully participated in the care of the patient.: Yes I have reviewed all pertinent clinical information, including history, physical exam and plan: Yes Notes (Text): 03/11/17 11:30 I have seen and examined patient with GI fellow. No acute events overnight, she is seen resting in bed comfortably. She denies abdominal pain, nausea, vomiting, diarrhea, fever/chills. Tolerating PO diet without difficulty. Review of vitals from today are normal. ETOH abuse, cirrhosis Macrocytic anemia Transaminitis - Low sodium diet as tolerated - H/H stable, s/p PRBC transfusion, no overt bleeding noted - Continue with lactulose, prevention of HE - ETOH cessation counseling provided to patient - Follow up hematology recommendations - No current planned GI intervention, from GI standpoint ok to discharge home with subsequent outpatient follow up. Will sign off case, please reconsult as necessary, thank you.
[2017-03-11 15:53] VITALS: PULSE 76
--- NOTE | 2017-03-11 17:07 | DS ---
HISTORY OF PRESENT ILLNESS: I saw her resting comfortably in bed. She is eating. She is doing well. They canceled the upper GI and the colonoscopy because of a white count issue. I am waiting for Hematology/Oncology to come in and see what they think about that. Otherwise, she is happy and feeling better. MEDICATIONS: She is on Aldactone, insulin coverage, Klonopin, Lasix, Protonix, IV fluids, Thera-Tabs, and vitamin B1. PHYSICAL EXAMINATION: VITAL SIGNS: 99.2 temperature, 81 pulse, 140/80 blood pressure, 20 respiratory rate and 98% O2 sat on room air. HEENT: Head is atraumatic, normocephalic. HEART: Regular rate. LUNGS: Clear to auscultation. ABDOMEN: Soft. Positive bowel sounds. EXTREMITIES: No edema. LABORATORY DATA: She has a blood test, white count is up to 2.7, it was as low as 1.6, hemoglobin is up to 9.4, hematocrit 28.1, platelets are 91. INR is 1.5. She is a major drinker. She has a 10 anion gap. BUN is 6, creatinine 0.7. GFR is greater than 60. Sugar is 83. Calcium is 7.8. The magnesium is low at 0.9, I gave her The iron is low and I gave her some iron. Alkaline phosphatase is 130, AST is 58, ALT is 36, and total protein is 5.9. Alcohol was 64 when she came in. She is being seen by multiple doctors, Gastroenterology. There are consults for Cardiology, GI and Hematology. I am hoping to discharge her today other doctors as outpatient continuation. I will put her some iron and she was told numerous times never to drink anymore. I do not trust her. Discussed also with her family members. Possible discharge today. Roc Acosta DO MTDD
== END 2017-03-11 16:37 | disposition home or self-care (01) | DRG 897 ==
LOC: ED 11:17 → ERH 13:21 → 3RSO 15:45
PROVIDERS: ADMIT Family Medicine; ATTEND Family Medicine
PROC: 30233N1 Transfusion of Nonautologous Red Blood Cells into Peripheral Vein, Percutaneous Approach (ICD-10-PCS; principal; 2017-03-09)
DX: D61.818 Other pancytopenia (principal); K92.0 Hematemesis; D62 Acute posthemorrhagic anemia; K70.30 Alcoholic cirrhosis of liver without ascites; K70.10 Alcoholic hepatitis without ascites; I10 Essential (primary) hypertension; E11.9 Type 2 diabetes mellitus without complications; D53.9 Nutritional anemia, unspecified; R79.89 Other specified abnormal findings of blood chemistry; F17.210 Nicotine dependence, cigarettes, uncomplicated

== ENCOUNTER 2018-06-21 10:36 | Inpatient (IN) | payer MEDICAID, OTHER ==
[2018-06-21] MEDS ORDERED: Sodium Chloride 0.9% 500 ML IV STA (11:27)
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
[2018-06-21] MEDS ORDERED: Iohexol 240 (50 ml) ONE (11:40)
[2018-06-21 12:12] LABS: BASO # 0.01 K/mm3 (0.0-2.0); BASO % 0.2 % (0.0-3.0); EOS % 0.2 % (1.5-5.0); GRAN # 4.04 (1.4-6.5); GRAN % 82.3 % (50.0-68.0); HEMOGLOBIN 12.8 g/dL (12.0-16.0); LYMPH # 0.6 (1.2-3.4); LYMPH % 11.2 % (22.0-35.0); MEAN CELL VOLUME 92.3 fl (80.0-105.0); MEAN CORPUSCULAR HEMOGLOBIN 32.8 pg (25.0-35.0); MEAN CORPUSCULAR HGB CONC 35.6 g/dl (31.0-37.0); MEAN PLATELET VOLUME 10.7 fl (7.0-11.0); MONO # 0.3 (0.1-0.6); MONO % 6.1 % (1.0-6.0); RBC 3.9 10^6/uL (3.5-6.1); WHITE BLOOD COUNT 4.9 10^3/uL (4.5-11.0)
[2018-06-21 12:24] LABS: INR 1.95; PARTIAL THROMBOPLASTIN TIME 43.1 Seconds (25.1-36.5); PROTHROMBIN TIME 22.7 SECONDS (9.4-12.5)
[2018-06-21] MEDS ORDERED: Iohexol 350 MG/100 ML VIAL ONE (13:33)
--- NOTE | 2018-06-21 14:19 | US ---
Date of service: 06/21/2018 HISTORY: vag bleed, llq abd pain COMPARISON: None available. TECHNIQUE: Transvaginal FINDINGS: UTERUS: Measures 5.1 x 3.2 x 3.3 cm. Normal in size and appearance. No fibroid or other mass lesion seen. ENDOMETRIUM: Measures 5 mm in diameter. Unremarkable. CERVIX: No cervical abnormality identified. RIGHT OVARY: Measures 3.1 x 3.0 x 1.7 cm. No solid mass. Normal flow. LEFT OVARY: Measures 2.0 x 1.4 x 2.3 cm. No solid mass. Normal flow. FREE FLUID: Small amount of free fluid OTHER FINDINGS: Dilated veins are seen in both adnexa which probably represent ovarian vein varices IMPRESSION: No acute findings
--- NOTE | 2018-06-21 14:44 | RAD ---
Date of service: 06/21/2018 HISTORY: gi bleed COMPARISON: 03/09/2017 FINDINGS: LUNGS: No active pulmonary disease. PLEURA: No significant pleural effusion identified, no pneumothorax apparent. CARDIOVASCULAR: No aortic atherosclerotic calcification present. Normal cardiac size. No pulmonary vascular congestion. OSSEOUS STRUCTURES: No significant abnormalities. VISUALIZED UPPER ABDOMEN: Normal. OTHER FINDINGS: None. IMPRESSION: No active disease.
--- NOTE | 2018-06-21 14:52 | CARD ---
APPROVED REPORT Date of service: 06/21/2018 EKG Measurement Heart [id number] <Conclusion> Normal sinus rhythm Possible Left atrial enlargement Borderline ECG
[2018-06-21 15:08] LABS: ALB/GLOB RATIO 0.6 (1.1-1.8); ALBUMIN 3.3 g/dL (3.0-4.8); ALT/SGPT 54 U/L (7-56); AMYLASE 64 U/L (35-125); AST/SGOT 157 U/L (14-36); BLOOD UREA NITROGEN 5 mg/dL (7-21); CALCIUM 9.5 mg/dL (8.4-10.5); GFR NON-AFRICAN AMERICAN > 60; LIPASE 88 U/L (23-300)
[2018-06-21 15:25] LABS: TROPONIN I 0.01 ng/mL
--- NOTE | 2018-06-21 16:19 | CT ---
Date of service: 06/21/2018 PROCEDURE: CT Abdomen and Pelvis with contrast HISTORY: llq abd pain r/o diverticulitis/ulcer COMPARISON: None. TECHNIQUE: Intravenous contrast dose: 100 cc Omnipaque 350. Radiation dose: Total exam DLP = 808.40 mGy-cm. This CT exam was performed using one or more of the following dose reduction techniques: Automated exposure control, adjustment of the mA and/or kV according to patient size, and/or use of iterative reconstruction technique. FINDINGS: LOWER THORAX: Unremarkable. LIVER: Hepatomegaly. Markedly abnormal enhancement of the liver. The findings can be seen in the setting of cirrhosis as severe liver disease with micro nodular regeneration. This appears more likely than a neoplastic process. Patent portal venous system is satisfactorily visualized without evidence portal vein thrombosis. Or however, the portal veins are dilated including large branches reconstituting about anterior abdominal wall and umbilicus (caput medusa). There is no evidence of portal vein thrombosis. GALLBLADDER AND BILE DUCTS: Status post cholecystectomy. No abnormality is seen in the gallbladder fossa. PANCREAS: Unremarkable. No gross lesion or ductal dilatation. SPLEEN: Splenomegaly. No focal splenic abnormalities. Patent splenic vein. ADRENALS: Unremarkable. No mass. KIDNEYS AND URETERS: Unremarkable. No hydronephrosis. No solid mass. VASCULATURE: Atherosclerotic calcification and mural plaque present. Findings are seen throughout the aorta which is non aneurysmal. BOWEL: Likely cecal mass. Soft tissue mass in the vicinity the ileocecal valve. Please refer to axial series 3/images 10 8-120. The findings are also seen on sagittal series 602/images 40-50. APPENDIX: Normal appendix. PERITONEUM: Trace free fluid identified in the pelvis/cul de sac. No free air. LYMPH NODES: Unremarkable. No enlarged lymph nodes. BLADDER: Unremarkable. REPRODUCTIVE: Unremarkable. BONES: No acute fracture. OTHER FINDINGS: None. IMPRESSION: Hepatomegaly, markedly abnormal enhancing characteristics of liver. In individual with known alcoholic liver disease and overall appearance suggestive of cirrhosis and portal hypertension these more likely reflect regenerating nodules than tumor. Splenomegaly. Soft tissue mass cecum/ileocecal valve region. Elective followup recommended. Communication of results: I discussed findings directly with the physician in the emergency department at the time of this interpretation
[2018-06-21 18:57] LABS: URINE BILIRUBIN LARGE (NEGATIVE); URINE BLOOD LARGE (NEGATIVE); URINE GLUCOSE (UA) NEGATIVE (NEGATIVE); URINE LEUKOCYTE ESTERASE TRACE Leu/uL (NEGATIVE); URINE PROTEIN TRACE mg/dL (<30 mg/dL)
[2018-06-21 19:07] LABS: URINE APPEARANCE CLEAR (CLEAR); URINE COLOR YELLOW (YELLOW)
[2018-06-21 19:41] LABS: URINE BACTERIA MANY /hpf; URINE EPITHELIAL CELLS 0 - 2 /hpf (0-5); URINE RBC 25 - 30 /hpf (0-2)
--- NOTE | 2018-06-21 19:41 | HP ---
DATE OF EXAM: 06/21/2018 HISTORY OF PRESENT ILLNESS: I know Lucila Prieto for many years. She was sent to the emergency room, not feeling well. She was supposed to come in the office, but never made it. She is a 58-year-old female who presents with dark stools, black tarry stools, diarrhea, left lower quadrant abdominal pain, weakness, lightheadedness, also intermittent vaginal bleeding and clots. PAST MEDICAL HISTORY: GI bleeding, diabetes, hypertension, hyperlipidemia, depression and alcohol abuse. She is still drinking. She tells me she is in menopause. She has hypertension and peripheral edema. She still smokes cigarettes. She has diabetes, bilateral pitting edema in lower extremities. She has fall, she uses a cane. She has multiple leg injuries, rectal bleed history, urinary tract infection history, severe alcohol abuse, illicit drug abuse, smoking bad history, bilateral laser knee surgery, gallstones removed. FAMILY HISTORY: Hypertension and diabetes in the family. SOCIAL HISTORY: Still smokes cigarettes. Drinks alcohol socially. Denies illicit drugs at this time or substance abuse at this time. She has enough drinking. ALLERGIES: NO KNOWN DRUG ALLERGIES. MEDICATIONS: She is on Insulin Lantus, spironolactone, Lasix, lactulose, vitamin B1, and . REVIEW OF SYSTEMS: No fevers. No vision or hearing changes. No shortness of breath or cough. No chest pain or palpitations. There is abdominal pain, there is diarrhea. There is nausea, there is vomiting. There is hematochezia. There are dark stools, positive stools in the ER. No back pain. No neck pain. No rashes that she knows of. She is lightheaded and dizzy, very anxious, nervous. PHYSICAL EXAMINATION: VITAL SIGNS: 98 temperature, 105 pulse, 18 respiratory rate, 146/88 blood pressure, 99% O2 sat. GENERAL: She is alert, well appearing, little toxic, uncomfortable. Alert and oriented x3. HEENT: Head is atraumatic, normocephalic. Extraocular muscles are intact. Pupils equal, react to light and accommodation. Sclerae are icterus. Membranes are moist. NECK: Supple. HEART: Regular rate. Normal S1, S2. LUNGS: Decreased breath sounds, but clear auscultation bilaterally. ABDOMEN: The left lower quadrant tenderness in the abdomen. No guarding, no rebound, no CVA tenderness. Decreased bowel sounds. There is dark stool, guaiac positive in the ER. Normal external genitalia exam through the ER. EXTREMITIES: There is no edema in the extremities. NEUROLOGIC: GCS is 15. Cranial nerves II-XII grossly intact. Normal speech. Alert and oriented x3. SKIN: Warm and dry. No apparent rashes or ulcers I could appreciate. LYMPHS: Thyroid midline. No palpable appreciable lymphadenopathy. DIAGNOSTIC DATA: She had multiple tests done. She had a CT scan of the abdomen and pelvis which showed hepatomegaly, marked abnormal enhancing characteristics of the liver, alcoholic liver disease, and overall appearance suggestive of cirrhosis and portal hypertension nodules and tumors, soft tissue mass in cecum and ileocecal valve, could be a colon mass. Also, I noticed a pelvic/transvaginal ultrasound which was normal. EKG and chest x-ray are okay. She has a 137 sodium, potassium 3.8, BUN 5, creatinine 0.7, GFR is greater than 60, sugar is 91, calcium is 9.5. Total bili is 11.4, quite high. Direct bili is 8.7, quite high. AST is 157, ALT is 54, alk phos is 239. Lactate dehydrogenase is 764. Total creatine kinase is 31. Troponin I is 0.01. Total protein is 9, albumin is 3.3, globulin 5.8. Amylase is 64, lipase is 88. INR is 1.95. White count 4.9, hemoglobin 12.8, hematocrit 36 with 84 platelets. She is going to have consults with GI and OB-[facility]BR[facility] CUTTER for the rectal bleeding and the vaginal bleeding. She will have insulin, lactulose and her Zofran. We will check her labs tomorrow, and she has GI bleed, vaginal bleeding, hepatomegaly, alcoholic liver disease, possible rectal mass. Roc Acosta DO MTDAnnie
[2018-06-21 22:21] VITALS: BMI 19.5
[2018-06-21] MEDS: Insulin Reg-MEDIUM-Coverage SC SCH (22:55)
[2018-06-21 23:06] LABS: HEMOGLOBIN 10.8 g/dL (12.0-16.0)
--- NOTE | 2018-06-22 02:18 | CP.PCM.PN ---
Subjective - Date & Time of Evaluation Date of Evaluation: 06/22/18 Time of Evaluation: 02:15 - Subjective Subjective: Mary Lou ZAMBRANO I was never notified of consult request Upon logging onto [employer] I saw request Will evlaute pt later today please call me direclty in any questions [phone] Objective - Vital Signs/Intake and Output Vital Signs (last 24 hours): Temp Pulse Resp BP Pulse Ox 98.4 F 72 18 112/69 97 06/21/18 22:00 06/22/18 02:00 06/21/18 22:00 06/21/18 22:00 06/21/18 22:00 - Medications Medications: Current Medications Clonazepam (Klonopin) 0.5 mg PO Q12 PRN; Protocol PRN Reason: Anxiety Pantoprazole Sodium (Protonix 40mg Ivpb) 40 mg in 100 mls @ 200 mls/hr IVPB 0600 [facility] Ceftriaxone Sodium (Rocephin 1 Gram Ivpb) 1 gm in 100 mls @ 100 mls/hr IVPB DAILY [facility]; Protocol Insulin Detemir (Levemir) 10 unit SC Q12 [facility] Insulin Human Regular (Humulin R Med) 0 units SC ACHS [facility]; Protocol Last Admin: 06/21/18 22:55 Dose: Not Given Lactulose (Enulose) 10 gm PO DAILY [facility] Ondansetron HCl (Zofran Inj) 4 mg IVP Q6H PRN PRN Reason: Nausea/Vomiting Spironolactone (Aldactone) 50 mg PO BID [facility] Thiamine HCl (Vitamin B1 Tab) 100 mg PO DAILY [facility] - Labs Labs: 06/21/18 22:51 06/21/18 12:15 PT 22.7 SECONDS (9.4-12.5) H 06/21/18 12:15 INR 1.95 06/21/18 12:15 APTT 43.1 Seconds (25.1-36.5) H 06/21/18 12:15
[2018-06-22] MEDS ORDERED: Pantoprazole 40mg/100mL NS 40 MG/100 ML BAG IVPB SCH (06:00)
[2018-06-22 06:59] LABS: HEMOGLOBIN 11.2 g/dL (12.0-16.0); MEAN CELL VOLUME 92.6 fl (80.0-105.0); MEAN CORPUSCULAR HGB CONC 34.6 g/dl (31.0-37.0); MEAN PLATELET VOLUME 10.5 fl (7.0-11.0); RBC 3.5 10^6/uL (3.5-6.1); RED CELL DISTRIBUTION WIDTH 20.3 % (11.5-14.5)
[2018-06-22 07:17] LABS: ALB/GLOB RATIO 0.5 (1.1-1.8); ALBUMIN 2.5 g/dL (3.0-4.8); ALT/SGPT 47 U/L (7-56); AST/SGOT 113 U/L (14-36); BLOOD UREA NITROGEN 8 mg/dL (7-21); CALCIUM 8.7 mg/dL (8.4-10.5); GFR NON-AFRICAN AMERICAN > 60
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
--- NOTE | 2018-06-22 08:48 | PN ---
DATE: 06/22/2018 SUBJECTIVE: I admitted her last night, not feeling well. She had some GI bleeding with dark stools, vaginal bleeding too and is having a UTI. She has a rectal mass in the colon. Also history of alcoholic liver disease, cirrhosis, and hepatomegaly. She is resting comfortably in bed, feeling a little bit better this morning, slept a little bit well last night. OBJECTIVE: VITAL SIGNS: Temperature 98.3, 66 pulse, 105/68 blood pressure, 20 respiratory rate, 97% O2 sat. HEENT: Head is atraumatic, normocephalic. HEART: Regular rate. LUNGS: Decreased breath sounds, but clear. ABDOMEN: Soft and nontender. Positive bowel sounds. EXTREMITIES: No edema. LABORATORY DATA: She has a very positive UTI, on Rocephin. She has a 133 sodium, potassium 3.7, BUN 8, creatinine 0.7, GFR is greater than 60, sugar is 98, calcium 8.7, total bili is coming down to 8.8 better, AST is 113 better, ALT is 47 better, alk phos 193, better. The numbers are getting better. Troponin I is 0.01, total protein 7.1, albumin is 2.5, amylase 64, lipase is 88. INR was 1.95. She has a 4 white count, 11.2 hemoglobin, 32.4 hematocrit with 78 platelets. Her consults for Gastroenterology and Obstetrics/Gynecology for vaginal and rectal bleeding. I am also going to call in Surgery, Dr. Smith for his opinion of this colon mass that they found on CAT scan. IV fluids, pain is making a big of a difference for her. I will continue with aggressive treatment care. IV antibiotics, IV fluids. Roc Acosta DO MTDAnnie
[2018-06-22] MEDS: Insulin Reg-MEDIUM-Coverage SC SCH ×4 (10:09→22:31)
[2018-06-22] MEDS: Insulin Detemir 100 units/ml Vial (Levemir) SC SCH ×2 (10:10→22:31)
[2018-06-22] MEDS: cefTRIAXone 1 gm 1 GM/100 ML BAG IVPB SCH (10:15)
--- NOTE | 2018-06-22 11:46 | CP.PCM.PN ---
Subjective - Date & Time of Evaluation Date of Evaluation: 06/22/18 Time of Evaluation: 11:46 - Subjective Subjective: Resident Consult Note for Surgery: Dr. Smith Patient is a 58 year old female with MHx: See above SurgHx: CCx, possible ERCP Meds: Reviewed in chart FamHx: Denied family h/o GI problems SocHx: H/o daily 1 pint liq abuse but stated no drink for few weeks, + >30 pack year tobacco, denied illicits All: NKDA Objective - Vital Signs/Intake and Output Vital Signs (last 24 hours): Temp Pulse Resp BP Pulse Ox 98.3 F 66 20 105/68 97 06/22/18 08:13 06/22/18 08:13 06/22/18 08:13 06/22/18 08:13 06/22/18 08:13 Intake and Output: 06/22/18 06/22/18 06:59 18:59 Intake Total 120 Balance 120 - Medications Medications: Current Medications Clonazepam (Klonopin) 0.5 mg PO Q12 PRN; Protocol PRN Reason: Anxiety Pantoprazole Sodium (Protonix 40mg Ivpb) 40 mg in 100 mls @ 200 mls/hr IVPB 0600 [facility] Last Admin: 06/22/18 05:39 Dose: 200 mls/hr Ceftriaxone Sodium (Rocephin 1 Gram Ivpb) 1 gm in 100 mls @ 100 mls/hr IVPB DAILY [facility]; Protocol Last Admin: 06/22/18 10:15 Dose: 100 mls/hr Octreotide Acetate 1,250 mcg/ (Sodium Chloride) 252.5 mls @ 10.1 mls/hr IV .Q24H [facility]; Protocol Insulin Detemir (Levemir) 10 unit SC Q12 [facility] Last Admin: 06/22/18 10:10 Dose: Not Given Insulin Human Regular (Humulin R Med) 0 units SC ACHS [facility]; Protocol Last Admin: 06/22/18 11:20 Dose: Not Given Lactulose (Enulose) 10 gm PO DAILY [facility] Last Admin: 06/22/18 10:15 Dose: 10 gm Ondansetron HCl (Zofran Inj) 4 mg IVP Q6H PRN PRN Reason: Nausea/Vomiting Polyethylene Glycol/Electrolytes (Golytely) 4,000 ml PO ONCE ONE Stop: 06/22/18 16:01 Spironolactone (Aldactone) 50 mg PO BID [facility] Last Admin: 06/22/18 10:15 Dose: 50 mg Thiamine HCl (Vitamin B1 Tab) 100 mg PO DAILY [facility] Last Admin: 06/22/18 10:15 Dose: 100 mg - Labs Labs: 06/22/18 06:25 06/22/18 06:25 PT 22.7 SECONDS (9.4-12.5) H 06/21/18 12:15 INR 1.95 06/21/18 12:15 APTT 43.1 Seconds (25.1-36.5) H 06/21/18 12:15
--- NOTE | 2018-06-22 11:50 | CP.PCM.CON ---
History of Present Illness - History of Present Illness History of Present Illness: Resident Consult Note for Surgery: Dr. Smith Patient is a 58 year old female with cirrhosis, polysubstance abuse, HTN, T2DM, depression presenting with chief complaint of abdominal pain and dark stools whi ch began approximately 2 weeks ago. Patient describes her pain as a constant gnawing ache located in her left lower and right lower quadrant. She admits to about ten episodes of watery dark stools over the past few days. Patient also had several episodes of non bloody, occasionally bilious vomiting. Patient has never had a colonoscopy before. PMH: cirrhosis, polysubstance abuse, HTN, T2DM, depression PSH: [place] SHx: 1 pint of liquor per day up until few weeks prior, 30 pack year tobacco, denies illicit drug use FHx: noncontributory Allergies: NKDA PMD: Dr. Acosta Review of Systems - Review of Systems All systems: reviewed and no additional remarkable complaints except (as stated in HPI) Past Patient History - Infectious Disease Hx of Infectious Diseases: None - Past Social History Smoking Status: Light Smoker < 10 Cigarettes Daily - CARDIAC Hx Cardiac Disorders: Yes Hx Heart Murmur: Yes Hx Hypercholesterolemia: Yes Hx Hypertension: Yes Hx Peripheral Edema: Yes - PULMONARY Hx Respiratory Disorders: No (SMOKES 4 CIG A DAY) - NEUROLOGICAL Hx Neurological Disorder: Yes (bells palsy) - HEENT Hx HEENT Problems: No - RENAL Hx Chronic Kidney Disease: Yes Hx Kidney Stones: Yes - ENDOCRINE/METABOLIC Hx Endocrine Disorders: Yes Hx Diabetes Mellitus Type 2: Yes - HEMATOLOGICAL/ONCOLOGICAL Hx Blood Disorders: Yes Hx Anemia: Yes - INTEGUMENTARY Hx Dermatological Problems: Yes Other/Comment: BILATERAL PITTING EDEMA +2 - MUSCULOSKELETAL/RHEUMATOLOGICAL Hx Musculoskeletal Disorders: Yes Hx Falls: Yes Hx Unsteady Gait: Yes (CANE) Other/Comment: left leg inury 4 years ago - GASTROINTESTINAL Hx Gastrointestinal Disorders: Yes (RECTAL BLEED.) Hx Gall Bladder Disease: Yes (gall stones) - GENITOURINARY/GYNECOLOGICAL Hx Genitourinary Disorders: Yes Hx Urinary Tract Infection: Yes - PSYCHIATRIC Hx Psychophysiologic Disorder: Yes (ETOH ABUSE,ILLICIT SUBSTANCE ABUSE H/O,SMOKES 4 CIG A DAY.) Hx Anxiety: Yes Hx Depression: Yes Hx Emotional Abuse: No Hx Physical Abuse: No Hx Substance Use: Yes - SURGICAL HISTORY Hx Surgeries: Yes Hx Orthopedic Surgery: Yes (L KNEE) Other/Comment: gallstones removed. kidmesy stone -lithotripsy. left knee surgery - ANESTHESIA Hx Anesthesia: No Meds Allergies/Adverse Reactions: Allergies Allergy/AdvReac Type Severity Reaction Status Date / Time No Known Allergies Allergy Verified 03/09/17 15:13 - Medications Medications: Current Medications Clonazepam (Klonopin) 0.5 mg PO Q12 PRN; Protocol PRN Reason: Anxiety Pantoprazole Sodium (Protonix 40mg Ivpb) 40 mg in 100 mls @ 200 mls/hr IVPB 0600 [facility] Last Admin: 06/22/18 05:39 Dose: 200 mls/hr Ceftriaxone Sodium (Rocephin 1 Gram Ivpb) 1 gm in 100 mls @ 100 mls/hr IVPB DAILY [facility]; Protocol Last Admin: 06/22/18 10:15 Dose: 100 mls/hr Octreotide Acetate 1,250 mcg/ (Sodium Chloride) 252.5 mls @ 10.1 mls/hr IV .Q24H [facility]; Protocol Insulin Detemir (Levemir) 10 unit SC Q12 [facility] Last Admin: 06/22/18 10:10 Dose: Not Given Insulin Human Regular (Humulin R Med) 0 units SC ACHS [facility]; Protocol Last Admin: 06/22/18 11:20 Dose: Not Given Lactulose (Enulose) 10 gm PO DAILY [facility] Last Admin: 06/22/18 10:15 Dose: 10 gm Ondansetron HCl (Zofran Inj) 4 mg IVP Q6H PRN PRN Reason: Nausea/Vomiting Polyethylene Glycol/Electrolytes (Golytely) 4,000 ml PO ONCE ONE Stop: 06/22/18 16:01 Spironolactone (Aldactone) 50 mg PO BID [facility] Last Admin: 06/22/18 10:15 Dose: 50 mg Thiamine HCl (Vitamin B1 Tab) 100 mg PO DAILY [facility] Last Admin: 06/22/18 10:15 Dose: 100 mg Physical Exam - Constitutional Appears: Non-toxic, No Acute Distress - Head Exam Head Exam: ATRAUMATIC, NORMOCEPHALIC - Eye Exam Eye Exam: EOMI, Normal appearance - Neck Exam Neck exam: Positive for: Full Rom - Respiratory Exam Respiratory Exam: Clear to Auscultation Bilateral, NORMAL BREATHING PATTERN. absent: Accessory Muscle Use, Respiratory Distress - Cardiovascular Exam Cardiovascular Exam: REGULAR RHYTHM, +S1, +S2 - GI/Abdominal Exam GI & Abdominal Exam: Hypoactive Bowel Sounds, Soft, Tenderness (LLQ>RLQ). absent: Distended, Firm, Guarding, Rebound, Rigid - Extremities Exam Extremities exam: Positive for: normal inspection. Negative for: pedal edema, tenderness - Neurological Exam Neurological exam: Alert, Oriented x3 - Skin Skin Exam: Dry, Intact, Normal Color, Warm Results - Vital Signs Recent Vital Signs: Last Vital Signs Temp 98.3 F 06/22/18 08:13 Pulse 66 06/22/18 08:13 Resp 20 06/22/18 08:13 BP 105/68 06/22/18 08:13 Pulse Ox 97 06/22/18 08:13 - Labs Result Diagrams: 06/22/18 06:25 06/22/18 06:25 Labs: Laboratory Results - last 24 hr 06/21/18 06/21/18 06/21/18 12:15 12:15 12:15 WBC 4.9 RBC 3.90 Hgb 12.8 D Hct 36.0 MCV 92.3 MCH 32.8 MCHC 35.6 RDW 20.0 H Plt Count 84 L MPV 10.7 Gran % 82.3 H Lymph % (Auto) 11.2 L [place] % (Auto) 6.1 H Eos % (Auto) 0.2 L Baso % (Auto) 0.2 Gran # 4.04 Lymph # (Auto) 0.6 L [place] # (Auto) 0.3 Eos # (Auto) 0.0 Baso # (Auto) 0.01 PT 22.7 H INR 1.95 APTT 43.1 H Sodium 137 Potassium 3.8 Chloride 106 Carbon Dioxide 18 L Anion Gap 17 BUN 5 L Creatinine 0.7 Est GFR ( Amer) > 60 Est GFR (Non-Af Amer) > 60 POC Glucose (mg/dL) Random Glucose 91 Calcium 9.5 Total Bilirubin 11.4 H Direct Bilirubin AST 157 H D ALT 54 Alkaline Phosphatase 239 H D Lactate Dehydrogenase 764 H Total Creatine Kinase 31 L Troponin I 0.01 Total Protein 9.0 H Albumin 3.3 Globulin 5.8 Albumin/Globulin Ratio 0.6 L Amylase 64 Lipase 88 Urine Color Urine Appearance Urine pH Ur Specific [place] Urine Protein Urine Glucose (UA) Urine Ketones Urine Blood Urine Nitrate Urine Bilirubin Urine Urobilinogen Ur Leukocyte Esterase Urine RBC Urine WBC Ur Epithelial Cells Urine Bacteria Blood Type Antibody Screen BBK History Checked 06/21/18 06/21/18 06/21/18 12:15 12:30 18:30 WBC RBC Hgb Hct MCV MCH MCHC RDW Plt Count MPV Gran % Lymph % (Auto) [place] % (Auto) Eos % (Auto) Baso % (Auto) Gran # Lymph # (Auto) [place] # (Auto) Eos # (Auto) Baso # (Auto) PT INR APTT Sodium Potassium Chloride Carbon Dioxide Anion Gap BUN Creatinine Est GFR ( Amer) Est GFR (Non-Af Amer) POC Glucose (mg/dL) Random Glucose Calcium Total Bilirubin Direct Bilirubin 8.7 H AST ALT Alkaline Phosphatase Lactate Dehydrogenase Total Creatine Kinase Troponin I Total Protein Albumin Globulin Albumin/Globulin Ratio Amylase Lipase Urine Color Yellow Urine Appearance Clear Urine pH 7.0 Ur Specific [place] 1.010 Urine Protein Trace H Urine Glucose (UA) Negative Urine Ketones 15 H Urine Blood Large H Urine Nitrate Negative Urine Bilirubin Large H Urine Urobilinogen 4.0 H Ur Leukocyte Esterase Trace H Urine RBC 25 - 30 H Urine WBC 10 - 15 H Ur Epithelial Cells 0 - 2 Urine Bacteria Many Blood Type AB POSITIVE Antibody Screen Negative BBK History Checked Patient has bt 06/21/18 06/21/18 06/22/18 21:30 22:51 06:25 WBC 4.0 L RBC 3.50 Hgb 10.8 L D 11.2 L Hct 30.8 L 32.4 L MCV 92.6 MCH 32.0 MCHC 34.6 RDW 20.3 H Plt Count 78 L MPV 10.5 Gran % Lymph % (Auto) [place] % (Auto) Eos % (Auto) Baso % (Auto) Gran # Lymph # (Auto) [place] # (Auto) Eos # (Auto) Baso # (Auto) PT INR APTT Sodium Potassium Chloride Carbon Dioxide Anion Gap BUN Creatinine Est GFR ( Amer) Est GFR (Non-Af Amer) POC Glucose (mg/dL) 134 H Random Glucose Calcium Total Bilirubin Direct Bilirubin AST ALT Alkaline Phosphatase Lactate Dehydrogenase Total Creatine Kinase Troponin I Total Protein Albumin Globulin Albumin/Globulin Ratio Amylase Lipase Urine Color Urine Appearance Urine pH Ur Specific [place] Urine Protein Urine Glucose (UA) Urine Ketones Urine Blood Urine Nitrate Urine Bilirubin Urine Urobilinogen Ur Leukocyte Esterase Urine RBC Urine WBC Ur Epithelial Cells Urine Bacteria Blood Type Antibody Screen BBK History Checked 06/22/18 06/22/18 06/22/18 06:25 07:39 11:13 WBC RBC Hgb Hct MCV MCH MCHC RDW Plt Count MPV Gran % Lymph % (Auto) [place] % (Auto) Eos % (Auto) Baso % (Auto) Gran # Lymph # (Auto) [place] # (Auto) Eos # (Auto) Baso # (Auto) PT INR APTT Sodium 133 Potassium 3.7 Chloride 105 Carbon Dioxide 22 Anion Gap 10 BUN 8 Creatinine 0.7 Est GFR ( Amer) > 60 Est GFR (Non-Af Amer) > 60 POC Glucose (mg/dL) 98 91 Random Glucose 85 Calcium 8.7 Total Bilirubin 8.8 H Direct Bilirubin AST 113 H D ALT 47 Alkaline Phosphatase 193 H Lactate Dehydrogenase Total Creatine Kinase Troponin I Total Protein 7.1 Albumin 2.5 L Globulin 4.6 Albumin/Globulin Ratio 0.5 L Amylase Lipase Urine Color Urine Appearance Urine pH Ur Specific [place] Urine Protein Urine Glucose (UA) Urine Ketones Urine Blood Urine Nitrate Urine Bilirubin Urine Urobilinogen Ur Leukocyte Esterase Urine RBC Urine WBC Ur Epithelial Cells Urine Bacteria Blood Type Antibody Screen BBK History Checked Assessment & Plan - Assessment and Plan (Free Text) Assessment: Patient is a 58 year old female with cirrhosis, polysubstance abuse, HTN, T2DM, depression presenting with chief complaint of abdominal pain and dark stools which began approximately 2 weeks ago. Plan: - hemodynamically stable - CTAP shows soft tissue mass cecum/ileocecal valve, hepatomegaly, splenomegaly - Protonix 40 mg IV Q12H - Octreotide infusion - Rocephin 1 gm IV daily - Liquid diet for now, NPO at midnight - plan for EGD and colonoscopy tomorrow per GI recs - further management per primary - will discuss possible surgical intervention Tutu [place] PGY-1 - Date & Time Date: 06/22/18 Time: 11:50
[2018-06-22] MEDS ORDERED: Peg-Electrolyte Oral Soln 4L (Golytely) PO ONE (16:00)
[2018-06-23 02:57] LABS: INR 2.26; PROTHROMBIN TIME 26.2 SECONDS (9.4-12.5)
[2018-06-23 06:47] LABS: HEMOGLOBIN 10.6 g/dL (12.0-16.0); MEAN CELL VOLUME 92.8 fl (80.0-105.0); MEAN CORPUSCULAR HEMOGLOBIN 31.8 pg (25.0-35.0); MEAN CORPUSCULAR HGB CONC 34.3 g/dl (31.0-37.0); MEAN PLATELET VOLUME 10.7 fl (7.0-11.0); RBC 3.33 10^6/uL (3.5-6.1); RED CELL DISTRIBUTION WIDTH 20.6 % (11.5-14.5); WHITE BLOOD COUNT 2.9 10^3/uL (4.5-11.0)
[2018-06-23] MEDS ORDERED: Propofol 10 mg/ml Inj (20 ML) ONE ×2 (07:31→08:11)
[2018-06-23] MEDS ORDERED: Phenylephrine 10 mg/ml Inj ONE (07:31)
[2018-06-23 07:45] LABS: ALB/GLOB RATIO 0.5 (1.1-1.8); ALBUMIN 2.3 g/dL (3.0-4.8); ALT/SGPT 32 U/L (7-56); AST/SGOT 88 U/L (14-36); BLOOD UREA NITROGEN 8 mg/dL (7-21); CALCIUM 8.5 mg/dL (8.4-10.5); GFR NON-AFRICAN AMERICAN > 60
[2018-06-23] MEDS ORDERED: Lactated Ringer's 1,000 ML IV SCH (07:45)
[2018-06-23] MEDS ORDERED: Glucagon Recombinant 1 mg Inj ONE (08:12)
--- NOTE | 2018-06-23 08:50 | CP.PCM.PN ---
Subjective - Date & Time of Evaluation Date of Evaluation: 06/23/18 Time of Evaluation: 08:37 - Subjective Subjective: Surgery Pt seen and examined. No acute events. Had endoscopy. Planned for possible colonoscopy today. Objective - Vital Signs/Intake and Output Vital Signs (last 24 hours): Temp Pulse Resp BP Pulse Ox 98.6 F 62 20 109/65 95 06/23/18 08:26 06/23/18 08:26 06/23/18 08:26 06/23/18 08:26 06/23/18 08:26 Intake and Output: 06/23/18 06/23/18 06:59 18:59 Intake Total 0 Balance 0 - Medications Medications: Current Medications Acetaminophen (Tylenol 325mg Tab) 650 mg PO Q6H PRN PRN Reason: Pain, Mild (1-3) Last Admin: 06/22/18 16:33 Dose: 650 mg Clonazepam (Klonopin) 0.5 mg PO Q12 PRN; Protocol PRN Reason: Anxiety Ceftriaxone Sodium (Rocephin 1 Gram Ivpb) 1 gm in 100 mls @ 100 mls/hr IVPB DAILY [facility]; Protocol Last Admin: 06/22/18 10:15 Dose: 100 mls/hr Octreotide Acetate 1,250 mcg/ (Sodium Chloride) 252.5 mls @ 10.1 mls/hr IV .Q24H [facility]; Protocol Last Admin: 06/22/18 12:24 Dose: 50 mcg/hr, 10.1 mls/hr Lactated Ringer's (Lactated Ringer's) 1,000 mls @ 75 mls/hr IV .[id number] [facility] Stop: 06/23/18 09:46 Insulin Detemir (Levemir) 10 unit SC Q12 [facility] Last Admin: 06/22/18 22:31 Dose: Not Given Insulin Human Regular (Humulin R Med) 0 units SC ACHS [facility]; Protocol Last Admin: 06/22/18 22:31 Dose: Not Given Lactulose (Enulose) 10 gm PO DAILY [facility] Last Admin: 06/22/18 10:15 Dose: 10 gm Ondansetron HCl (Zofran Inj) 4 mg IVP Q6H PRN PRN Reason: Nausea/Vomiting Pantoprazole Sodium (Protonix Inj) 40 mg IVP Q12 [facility] Last Admin: 06/22/18 22:28 Dose: 40 mg Spironolactone (Aldactone) 50 mg PO BID [facility] Last Admin: 06/22/18 17:56 Dose: 50 mg Thiamine HCl (Vitamin B1 Tab) 100 mg PO DAILY [facility] Last Admin: 06/22/18 10:15 Dose: 100 mg - Labs Labs: 06/23/18 06:00 06/23/18 06:00 PT 26.2 SECONDS (9.4-12.5) H 06/23/18 02:36 INR 2.26 06/23/18 02:36 APTT 43.1 Seconds (25.1-36.5) H 06/21/18 12:15 - Constitutional Appears: No Acute Distress - Head Exam Head Exam: ATRAUMATIC, NORMAL INSPECTION, NORMOCEPHALIC - Eye Exam Eye Exam: EOMI, Normal appearance, PERRL Pupil Exam: NORMAL ACCOMODATION, PERRL - ENT Exam ENT Exam: Mucous Membranes Moist, Normal Exam - Neck Exam Neck Exam: Full ROM, Normal Inspection. absent: Lymphadenopathy - Respiratory Exam Respiratory Exam: NORMAL BREATHING PATTERN - Cardiovascular Exam Cardiovascular Exam: REGULAR RHYTHM - GI/Abdominal Exam GI & Abdominal Exam: Soft, Normal Bowel Sounds. absent: Distended, Firm, Tenderness Additional comments: caput [place] - Extremities Exam Extremities Exam: Full ROM, Normal Capillary Refill - Back Exam Back Exam: NORMAL INSPECTION - Neurological Exam Neurological Exam: Alert, Awake, CN II-XII Intact, Normal Gait, Oriented x3 - Psychiatric Exam Psychiatric exam: Normal Affect, Normal Mood - Skin Skin Exam: Dry, Intact, Normal Color, Warm Assessment and Plan - Assessment and Plan (Free Text) Assessment: Patient is a 58 year old female with cirrhosis, polysubstance abuse, HTN, T2DM, depression presenting with chief complaint of abdominal pain and dark stools which began approximately 2 weeks ago. MELD: 25 20% 3 month mortality rate. Child stephenson C: 80% abdominal operative mortality rate. Plan: - - hemodynamically stable - CTAP shows soft tissue mass cecum/ileocecal valve, hepatomegaly, splenomegaly - Protonix 40 mg IV Q12H - Octreotide infusion - Rocephin 1 gm IV daily - Liquid diet for now, NPO at midnight - f/u colonoscopy - further management per primary -pt is poor surgical candidate . Nader Smith
--- NOTE | 2018-06-23 09:52 | CP.PCM.CON ---
<Wil Hernandezson - Last Filed: 06/23/18 12:16> History of Present Illness - History of Present Illness History of Present Illness: Podiatry consult note for Dr. Sarabia 58F with pmhx of GI bleeding, diabetes, hypertension, hyperlipidemia, depression, and alcohol abuse seen and evaluated at bedside for elongated nails. Patient had endoscopy procedure today. Reports mild discomfort to nails. States she has had fungal nails and was prescribed a turkish to use on her nails which she says is helping get rid of it. Has no other acute complaints. Denies N/V/F/C. PMHx: above PSHx: CCx, possible ERCP All: NKDA Past Patient History - Infectious Disease Hx of Infectious Diseases: None - Past Social History Smoking Status: Light Smoker < 10 Cigarettes Daily - CARDIAC Hx Cardiac Disorders: Yes Hx Heart Murmur: Yes Hx Hypercholesterolemia: Yes Hx Hypertension: Yes Hx Peripheral Edema: Yes - PULMONARY Hx Respiratory Disorders: No (SMOKES 4 CIG A DAY) - NEUROLOGICAL Hx Neurological Disorder: Yes (bells palsy) - HEENT Hx HEENT Problems: No - RENAL Hx Chronic Kidney Disease: Yes Hx Kidney Stones: Yes - ENDOCRINE/METABOLIC Hx Endocrine Disorders: Yes Hx Diabetes Mellitus Type 2: Yes - HEMATOLOGICAL/ONCOLOGICAL Hx Blood Transfusions: No - INTEGUMENTARY Hx Dermatological Problems: Yes Other/Comment: BILATERAL PITTING EDEMA +2 - MUSCULOSKELETAL/RHEUMATOLOGICAL Hx Musculoskeletal Disorders: Yes Hx Falls: Yes Hx Unsteady Gait: Yes (CANE) Other/Comment: left leg inury 4 years ago - GASTROINTESTINAL Hx Gastrointestinal Disorders: Yes (RECTAL BLEED.) Hx Gall Bladder Disease: Yes (gall stones) - GENITOURINARY/GYNECOLOGICAL Hx Genitourinary Disorders: Yes Hx Urinary Tract Infection: Yes - PSYCHIATRIC Hx Psychophysiologic Disorder: Yes (ETOH ABUSE,ILLICIT SUBSTANCE ABUSE H/O,SMOKES 4 CIG A DAY.) Hx Anxiety: Yes Hx Depression: Yes Hx Emotional Abuse: No Hx Physical Abuse: No Hx Substance Use: Yes - SURGICAL HISTORY Hx Surgeries: Yes - ANESTHESIA Hx Anesthesia Reactions: No Hx Malignant Hyperthermia: No Meds Allergies/Adverse Reactions: Allergies Allergy/AdvReac Type Severity Reaction Status Date / Time No Known Allergies Allergy Verified 03/09/17 15:13 - Medications Medications: Current Medications Acetaminophen (Tylenol 325mg Tab) 650 mg PO Q6H PRN PRN Reason: Pain, Mild (1-3) Last Admin: 06/22/18 16:33 Dose: 650 mg Clonazepam (Klonopin) 0.5 mg PO Q12 PRN; Protocol PRN Reason: Anxiety Ceftriaxone Sodium (Rocephin 1 Gram Ivpb) 1 gm in 100 mls @ 100 mls/hr IVPB DAILY [facility]; Protocol Last Admin: 06/22/18 10:15 Dose: 100 mls/hr Octreotide Acetate 1,250 mcg/ (Sodium Chloride) 252.5 mls @ 10.1 mls/hr IV .Q24H [facility]; Protocol Last Admin: 06/22/18 12:24 Dose: 50 mcg/hr, 10.1 mls/hr Insulin Detemir (Levemir) 10 unit SC Q12 [facility] Last Admin: 06/22/18 22:31 Dose: Not Given Insulin Human Regular (Humulin R Med) 0 units SC ACHS [facility]; Protocol Last Admin: 06/22/18 22:31 Dose: Not Given Lactulose (Enulose) 10 gm PO DAILY [facility] Last Admin: 06/22/18 10:15 Dose: 10 gm Nadolol (Corgard) 20 mg PO DAILY [facility] Ondansetron HCl (Zofran Inj) 4 mg IVP Q6H PRN PRN Reason: Nausea/Vomiting Pantoprazole Sodium (Protonix Ec Tab) 40 mg PO BID [facility] Spironolactone (Aldactone) 50 mg PO BID [facility] Last Admin: 06/22/18 17:56 Dose: 50 mg Sucralfate (Carafate Oral Susp) 1 gm PO QID [facility] Thiamine HCl (Vitamin B1 Tab) 100 mg PO DAILY [facility] Last Admin: 06/22/18 10:15 Dose: 100 mg Physical Exam - Constitutional Appears: Non-toxic, No Acute Distress - Head Exam Head Exam: ATRAUMATIC, NORMOCEPHALIC - Extremities Exam Additional comments: LE focused VASC: DP and PT pulses palpable; cap refill <3 seconds to all digits; temp gradient warm to cool; no edema noted b/l DERM: skin temp and turgor within normal limits; nails are elongated and dystr ophic x 10 ORTHO: no gross pathology noted; no pain on palpation of nail beds NEURO: gross and protective sensation intact b/l - Neurological Exam Neurological exam: Alert - Psychiatric Exam Psychiatric exam: Normal Affect, Normal Mood Results - Vital Signs Recent Vital Signs: Last Vital Signs Temp 97.1 F L 06/23/18 09:26 Pulse 63 06/23/18 09:41 Resp 12 06/23/18 09:41 BP 96/55 L 06/23/18 09:41 Pulse Ox 95 06/23/18 09:41 - Labs Result Diagrams: 06/23/18 06:00 06/23/18 06:00 Labs: Laboratory Results - last 24 hr 06/22/18 06/22/18 06/22/18 11:13 16:37 17:04 WBC RBC Hgb Hct MCV MCH MCHC RDW Plt Count MPV PT INR Sodium Potassium Chloride Carbon Dioxide Anion Gap BUN Creatinine Est GFR ( Amer) Est GFR (Non-Af Amer) POC Glucose (mg/dL) 91 269 H 271 H Random Glucose Calcium Total Bilirubin AST ALT Alkaline Phosphatase Total Protein Albumin Globulin Albumin/Globulin Ratio 06/22/18 06/23/18 06/23/18 21:51 02:36 06:00 WBC 2.9 L D RBC 3.33 L Hgb 10.6 L Hct 30.9 L MCV 92.8 MCH 31.8 MCHC 34.3 RDW 20.6 H Plt Count 63 L MPV 10.7 PT 26.2 H INR 2.26 Sodium Potassium Chloride Carbon Dioxide Anion Gap BUN Creatinine Est GFR ( Amer) Est GFR (Non-Af Amer) POC Glucose (mg/dL) 73 Random Glucose Calcium Total Bilirubin AST ALT Alkaline Phosphatase Total Protein Albumin Globulin Albumin/Globulin Ratio 06/23/18 06/23/18 06:00 07:27 WBC RBC Hgb Hct MCV MCH MCHC RDW Plt Count MPV PT INR Sodium 135 Potassium 3.9 Chloride 106 Carbon Dioxide 24 Anion Gap 9 L BUN 8 Creatinine 0.8 Est GFR ( Amer) > 60 Est GFR (Non-Af Amer) > 60 POC Glucose (mg/dL) 122 H Random Glucose 112 H Calcium 8.5 Total Bilirubin 8.7 H AST 88 H D ALT 32 Alkaline Phosphatase 154 H D Total Protein 6.6 Albumin 2.3 L Globulin 4.3 Albumin/Globulin Ratio 0.5 L Assessment & Plan - Assessment and Plan (Free Text) Assessment: 58F with pmhx of GI bleeding, diabetes, hypertension, hyperlipidemia, depression, and alcohol abuse seen and evaluated for elongated dystrophic nails x 10 Plan: Patient seen and evaluated Discussed in detail with Dr. Sarabia Afebrile Nails sharply cut with nail nipper x 10 without incident, patient tolerated well Lotion applied to feet Podiatry to sign off on patient Thank you for the consult - Date & Time Date: 06/23/18 Time: 12:18 <Otto Sarabia - Last Filed: 06/24/18 07:27> Meds - Medications Medications: Current Medications Acetaminophen (Tylenol 325mg Tab) 650 mg PO Q6H PRN PRN Reason: Pain, Mild (1-3) Last Admin: 06/24/18 01:33 Dose: 650 mg Clonazepam (Klonopin) 0.5 mg PO Q12 PRN; Protocol PRN Reason: Anxiety Piperacillin Sod/Tazobactam Sod (Zosyn 3.375 In Ns 100ml) 100 mls @ 200 mls/hr IVPB Q6 [facility]; Protocol Stop: 06/30/18 18:01 Last Admin: 06/24/18 05:50 Dose: 200 mls/hr Insulin Detemir (Levemir) 10 unit SC Q12 [facility] Last Admin: 06/23/18 22:11 Dose: 10 unit Insulin Human Regular (Humulin R Med) 0 units SC ACHS [facility]; Protocol Last Admin: 06/23/18 22:11 Dose: Not Given Lactulose (Enulose) 10 gm PO DAILY [facility] Last Admin: 06/23/18 10:29 Dose: Not Given Nadolol (Corgard) 20 mg PO DAILY [facility] Last Admin: 06/23/18 10:28 Dose: 20 mg Ondansetron HCl (Zofran Inj) 4 mg IVP Q6H PRN PRN Reason: Nausea/Vomiting Pantoprazole Sodium (Protonix Ec Tab) 40 mg PO BID [facility] Last Admin: 06/23/18 17:48 Dose: 40 mg Spironolactone (Aldactone) 50 mg PO BID [facility] Last Admin: 06/23/18 17:49 Dose: 50 mg Sucralfate (Carafate Oral Susp) 1 gm PO QID [facility] Last Admin: 06/23/18 22:10 Dose: 1 gm Thiamine HCl (Vitamin B1 Tab) 100 mg PO DAILY [facility] Last Admin: 06/23/18 10:39 Dose: 100 mg Results - Vital Signs Recent Vital Signs: Last Vital Signs Temp 98.2 F 06/24/18 06:00 Pulse 63 06/24/18 06:00 Resp 20 06/24/18 06:00 BP 115/71 06/24/18 06:00 Pulse Ox 100 06/24/18 06:00 - Labs Result Diagrams: 06/23/18 06:00 06/23/18 06:00 Labs: Laboratory Results - last 24 hr 06/23/18 06/23/18 06/23/18 06:00 07:27 11:33 Sodium 135 Potassium 3.9 Chloride 106 Carbon Dioxide 24 Anion Gap 9 L BUN 8 Creatinine 0.8 Est GFR ( Amer) > 60 Est GFR (Non-Af Amer) > 60 POC Glucose (mg/dL) 122 H 159 H Random Glucose 112 H Calcium 8.5 Total Bilirubin 8.7 H AST 88 H D ALT 32 Alkaline Phosphatase 154 H D Total Protein 6.6 Albumin 2.3 L Globulin 4.3 Albumin/Globulin Ratio 0.5 L 06/23/18 06/23/18 16:02 21:33 Sodium Potassium Chloride Carbon Dioxide Anion Gap BUN Creatinine Est GFR ( Amer) Est GFR (Non-Af Amer) POC Glucose (mg/dL) 141 H 138 H Random Glucose Calcium Total Bilirubin AST ALT Alkaline Phosphatase Total Protein Albumin Globulin Albumin/Globulin Ratio Attending/Attestation - Attestation I have personally seen and examined this patient.: Yes I have fully participated in the care of the patient.: Yes I have reviewed all pertinent clinical information: Yes
[2018-06-23] MEDS: Sucralfate 1 gm/10 ml Oral Susp UD PO SCH ×4 (10:28→22:10)
[2018-06-23] MEDS: Insulin Reg-MEDIUM-Coverage SC SCH ×4 (10:29→22:11)
[2018-06-23] MEDS: Pantoprazole 40 mg EC Tab PO SCH ×2 (10:31→17:48)
[2018-06-23] MEDS: Insulin Detemir 100 units/ml Vial (Levemir) SC SCH ×2 (10:31→22:11)
[2018-06-23] MEDS: cefTRIAXone 1 gm 1 GM/100 ML BAG IVPB SCH (10:32)
[2018-06-23] MEDS ORDERED: cefTRIAXone 1 gm 1 GM/100 ML BAG IVPB SCH (10:45)
--- NOTE | 2018-06-23 15:04 | US ---
PROCEDURE: Portal vein duplex ultrasound. CLINICAL HISTORY: Cirrhosis. Deteriorating liver function. Evaluate for portal vein thrombosis. PHYSICIAN(S): Francisco Garg M.D. FINDINGS: The exam is extremely limited. There is hepatofugal flow in the extrahepatic portal vein. The hepatic artery is patent. A large recanalized umbilical vein is present. IMPRESSION: 1. Hepatofugal flow in the extrahepatic portal vein 2. Large recanalized umbilical vein 3. Very limited study
--- NOTE | 2018-06-23 15:49 | PN ---
DATE: 06/23/2018 SUBJECTIVE: I saw her back from her endoscopy. I believe she had some polyps removed. She had an ulcer. She is on Aldactone, Carafate, Coreg, Levemir, octreotide, Protonix, Tylenol, vitamin B1 and Zofran. PHYSICAL EXAMINATION: VITAL SIGNS: She has 97.1 temp, 62 pulse, 110/66 blood pressure, 12 respiratory rate, 95% sat on 3 L. HEENT: Head is atraumatic, normocephalic. HEART: Regular rate. LUNGS: Decreased breath sounds. ABDOMEN: Soft, mild discomfort. Decreased bowel sounds. EXTREMITIES: No edema. LABORATORY DATA: She has a 2.9 white count, 10.6 hemoglobin, 30.9 hematocrit with 63 platelets. INR 2.26; 135 sodium, potassium 3.9, BUN 8, creatinine 0.8, GFR is greater than 60, sugar is 122, calcium is 8.5. Total bili is 8.7, still very high, slowly coming down. AST is 88, ALT is 32, alk phos 134, total protein 6.6; and also she has urinary tract infection. ASSESSMENT AND PLAN: I am also going to add Rocephin to her medicine for the urinary tract infection. She had gram-negative rods, gram-positive cocci in the urine. I will start her on Rocephin. I will consult Infectious Disease, Dr. Steven. We will watch her closely. Continue with gastrointestinal treatment. We will check her labs. Roc Acosta DO MTDD
--- NOTE | 2018-06-23 16:25 | CP.PCM.CON ---
History of Present Illness - History of Present Illness History of Present Illness: 58 year old female with PMH of alcohol abuse, HTN, DM, depression, anxiety came in to [facility] because of dark, tarry stools associated with generalized weakness and easy fatigability. She would also hav intermittent soreness in the left lower quadrant area. She had one episode of vomiting, but has resolved, denies headache or dizziness, no chest pain, no SOB, no cough or rhinorrhea, no diarrhea, currently no dysuria, occasional urinary frequency, no fever or chills. She was found to have colonic masses and colonoscopy was done and mul tiple polyps have been removed. Urine cx were done on admission and it is showing gram positive cocci and gram negative bacilli. Infectious diseases consult is requested to further evaluate and manage. Review of Systems - Review of Systems All systems: reviewed and no additional remarkable complaints except (as per HPI) Past Patient History - Infectious Disease Hx of Infectious Diseases: None - Past Social History Smoking Status: Light Smoker < 10 Cigarettes Daily - CARDIAC Hx Cardiac Disorders: Yes Hx Heart Murmur: Yes Hx Hypercholesterolemia: Yes Hx Hypertension: Yes Hx Peripheral Edema: Yes - PULMONARY Hx Respiratory Disorders: No (SMOKES 4 CIG A DAY) - NEUROLOGICAL Hx Neurological Disorder: Yes (bells palsy) - HEENT Hx HEENT Problems: No - RENAL Hx Chronic Kidney Disease: Yes Hx Kidney Stones: Yes - ENDOCRINE/METABOLIC Hx Endocrine Disorders: Yes Hx Diabetes Mellitus Type 2: Yes - HEMATOLOGICAL/ONCOLOGICAL Hx Blood Transfusions: No - INTEGUMENTARY Hx Dermatological Problems: Yes Other/Comment: BILATERAL PITTING EDEMA +2 - MUSCULOSKELETAL/RHEUMATOLOGICAL Hx Musculoskeletal Disorders: Yes Hx Falls: Yes Hx Unsteady Gait: Yes (CANE) Other/Comment: left leg inury 4 years ago - GASTROINTESTINAL Hx Gastrointestinal Disorders: Yes (RECTAL BLEED.) Hx Gall Bladder Disease: Yes (gall stones) - GENITOURINARY/GYNECOLOGICAL Hx Genitourinary Disorders: Yes Hx Urinary Tract Infection: Yes - PSYCHIATRIC Hx Psychophysiologic Disorder: Yes (ETOH ABUSE,ILLICIT SUBSTANCE ABUSE H/O,SMOKES 4 CIG A DAY.) Hx Anxiety: Yes Hx Depression: Yes Hx Emotional Abuse: No Hx Physical Abuse: No Hx Substance Use: Yes - SURGICAL HISTORY Hx Surgeries: Yes - ANESTHESIA Hx Anesthesia Reactions: No Hx Malignant Hyperthermia: No Meds Allergies/Adverse Reactions: Allergies Allergy/AdvReac Type Severity Reaction Status Date / Time No Known Allergies Allergy Verified 10/04/17 15:13 - Medications Medications: Current Medications Acetaminophen (Tylenol 325mg Tab) 650 mg PO Q6H PRN PRN Reason: Pain, Mild (1-3) Last Admin: 06/22/18 16:33 Dose: 650 mg Clonazepam (Klonopin) 0.5 mg PO Q12 PRN; Protocol PRN Reason: Anxiety Piperacillin Sod/Tazobactam Sod (Zosyn 3.375 In Ns 100ml) 100 mls @ 200 mls/hr IVPB Q6 [facility]; Protocol Stop: 06/30/18 18:01 Insulin Detemir (Levemir) 10 unit SC Q12 [facility] Last Admin: 06/23/18 10:31 Dose: 10 unit Insulin Human Regular (Humulin R Med) 0 units SC ACHS [facility]; Protocol Last Admin: 06/23/18 13:28 Dose: Not Given Lactulose (Enulose) 10 gm PO DAILY [facility] Last Admin: 06/23/18 10:29 Dose: Not Given Nadolol (Corgard) 20 mg PO DAILY [facility] Last Admin: 06/23/18 10:28 Dose: 20 mg Ondansetron HCl (Zofran Inj) 4 mg IVP Q6H PRN PRN Reason: Nausea/Vomiting Pantoprazole Sodium (Protonix Ec Tab) 40 mg PO BID [facility] Last Admin: 06/23/18 10:31 Dose: 40 mg Spironolactone (Aldactone) 50 mg PO BID [facility] Last Admin: 06/23/18 10:28 Dose: 50 mg Sucralfate (Carafate Oral Susp) 1 gm PO QID [facility] Last Admin: 06/23/18 13:27 Dose: 1 gm Thiamine HCl (Vitamin B1 Tab) 100 mg PO DAILY [facility] Last Admin: 06/23/18 10:39 Dose: 100 mg Physical Exam - Constitutional Appears: Non-toxic, No Acute Distress, Chronically Ill - Head Exam Head Exam: NORMAL INSPECTION - ENT Exam ENT Exam: Mucous Membranes Moist - Neck Exam Neck exam: Negative for: Meningismus - Respiratory Exam Respiratory Exam: Decreased Breath Sounds - Cardiovascular Exam Cardiovascular Exam: +S1, +S2 - GI/Abdominal Exam GI & Abdominal Exam: Soft. absent: Tenderness Results - Vital Signs Recent Vital Signs: Last Vital Signs Temp 97.1 F L 06/23/18 09:26 Pulse 66 06/23/18 14:00 Resp 12 06/23/18 09:41 BP 110/66 06/23/18 10:28 Pulse Ox 95 06/23/18 09:41 - Labs Result Diagrams: 06/23/18 06:00 06/23/18 06:00 Labs: Laboratory Results - last 24 hr 06/22/18 06/22/18 06/22/18 16:37 17:04 21:51 WBC RBC Hgb Hct MCV MCH MCHC RDW Plt Count MPV PT INR Sodium Potassium Chloride Carbon Dioxide Anion Gap BUN Creatinine Est GFR ( Amer) Est GFR (Non-Af Amer) POC Glucose (mg/dL) 269 H 271 H 73 Random Glucose Calcium Total Bilirubin AST ALT Alkaline Phosphatase Total Protein Albumin Globulin Albumin/Globulin Ratio 06/23/18 06/23/18 06/23/18 02:36 06:00 06:00 WBC 2.9 L D RBC 3.33 L Hgb 10.6 L Hct 30.9 L MCV 92.8 MCH 31.8 MCHC 34.3 RDW 20.6 H Plt Count 63 L MPV 10.7 PT 26.2 H INR 2.26 Sodium 135 Potassium 3.9 Chloride 106 Carbon Dioxide 24 Anion Gap 9 L BUN 8 Creatinine 0.8 Est GFR ( Amer) > 60 Est GFR (Non-Af Amer) > 60 POC Glucose (mg/dL) Random Glucose 112 H Calcium 8.5 Total Bilirubin 8.7 H AST 88 H D ALT 32 Alkaline Phosphatase 154 H D Total Protein 6.6 Albumin 2.3 L Globulin 4.3 Albumin/Globulin Ratio 0.5 L 06/23/18 06/23/18 06/23/18 07:27 11:33 16:02 WBC RBC Hgb Hct MCV MCH MCHC RDW Plt Count MPV PT INR Sodium Potassium Chloride Carbon Dioxide Anion Gap BUN Creatinine Est GFR ( Amer) Est GFR (Non-Af Amer) POC Glucose (mg/dL) 122 H 159 H 141 H Random Glucose Calcium Total Bilirubin AST ALT Alkaline Phosphatase Total Protein Albumin Globulin Albumin/Globulin Ratio Assessment & Plan - Assessment and Plan (Free Text) Plan: Assessment R/O UTI with gram positive cocci and gram negative bacilli colonic polyps/masses associated with melena S/P removal and biopsy of masses alcohol abuse HTN DM depression anxiety Plan started zosyn pending identification and sensitivities of the bacteria in the urine follow up biopsy results will monitor clinically
[2018-06-23] MEDS: Piperacillin/Tazobact 3.375 gm 100 ML IVPB SCH (17:49)
[2018-06-24] MEDS: Piperacillin/Tazobact 3.375 gm 100 ML IVPB SCH ×2 (00:59→05:50)
[2018-06-24 07:17] VITALS: BP 115/71; RESP 20; TEMP 98.2; O2SAT 100
[2018-06-24] MEDS: Insulin Reg-MEDIUM-Coverage SC SCH ×2 (11:40→11:59)
[2018-06-24] MEDS: Sucralfate 1 gm/10 ml Oral Susp UD PO SCH (11:48)
[2018-06-24] MEDS: Pantoprazole 40 mg EC Tab PO SCH (11:50)
[2018-06-24 11:51] VITALS: PULSE 63
[2018-06-24] MEDS: Insulin Detemir 100 units/ml Vial (Levemir) SC SCH (11:56)
--- NOTE | 2018-06-24 13:47 | CP.PCM.PN ---
<Nati Lomas - Last Filed: 06/24/18 13:41> Subjective - Date & Time of Evaluation Date of Evaluation: 06/24/18 Time of Evaluation: 13:41 - Subjective Subjective: Gastroenterology Fellow/PGY6 Progress Note Patient resting comfortably. Denies abdominal pain. Tolerating diet. A 12-point review of systems negative except for as above. Objective - Vital Signs/Intake and Output Vital Signs (last 24 hours): Temp Pulse Resp BP Pulse Ox 98.2 F 63 20 115/71 100 06/24/18 06:00 06/24/18 11:49 06/24/18 06:00 06/24/18 11:49 06/24/18 06:00 Intake and Output: 06/24/18 06/24/18 06:59 18:59 Intake Total 1480 Balance 1480 - Medications Medications: Current Medications Acetaminophen (Tylenol 325mg Tab) 650 mg PO Q6H PRN PRN Reason: Pain, Mild (1-3) Last Admin: 06/24/18 01:33 Dose: 650 mg Clonazepam (Klonopin) 0.5 mg PO Q12 PRN; Protocol PRN Reason: Anxiety Piperacillin Sod/Tazobactam Sod (Zosyn 3.375 In Ns 100ml) 100 mls @ 200 mls/hr IVPB Q6 [facility]; Protocol Stop: 06/30/18 18:01 Last Admin: 06/24/18 05:50 Dose: 200 mls/hr Insulin Detemir (Levemir) 10 unit SC Q12 [facility] Last Admin: 06/24/18 11:56 Dose: 10 unit Insulin Human Regular (Humulin R Med) 0 units SC ACHS [facility]; Protocol Last Admin: 06/24/18 11:59 Dose: Not Given Lactulose (Enulose) 10 gm PO DAILY [facility] Last Admin: 06/24/18 11:47 Dose: 10 gm Nadolol (Corgard) 20 mg PO DAILY [facility] Last Admin: 06/24/18 11:49 Dose: 20 mg Ondansetron HCl (Zofran Inj) 4 mg IVP Q6H PRN PRN Reason: Nausea/Vomiting Pantoprazole Sodium (Protonix Ec Tab) 40 mg PO BID [facility] Last Admin: 06/24/18 11:50 Dose: 40 mg Spironolactone (Aldactone) 50 mg PO BID [facility] Last Admin: 06/24/18 11:50 Dose: 50 mg Sucralfate (Carafate Oral Susp) 1 gm PO QID [facility] Last Admin: 06/24/18 11:48 Dose: 1 gm Thiamine HCl (Vitamin B1 Tab) 100 mg PO DAILY [facility] Last Admin: 06/24/18 11:49 Dose: 100 mg - Labs Labs: 06/23/18 06:00 06/23/18 06:00 PT 26.2 SECONDS (9.4-12.5) H 06/23/18 02:36 INR 2.26 06/23/18 02:36 APTT 43.1 Seconds (25.1-36.5) H 06/21/18 12:15 - Constitutional Appears: Non-toxic, No Acute Distress - Head Exam Head Exam: ATRAUMATIC, NORMOCEPHALIC - Eye Exam Eye Exam: EOMI, PERRL, Scleral icterus Pupil Exam: PERRL. absent: Miosis, Mydriatic - ENT Exam ENT Exam: Mucous Membranes Moist, Normal Oropharynx - Neck Exam Neck Exam: Full ROM, Normal Inspection - Respiratory Exam Respiratory Exam: Clear to Ausculation Bilateral. absent: Rales, Rhonchi, Wheezes - Cardiovascular Exam Cardiovascular Exam: RRR, +S1, +S2. absent: Gallop, Rubs - GI/Abdominal Exam GI & Abdominal Exam: Soft, Normal Bowel Sounds. absent: Distended, Firm, Guarding, Rigid, Tenderness, Organomegaly, Rebound - Extremities Exam Extremities Exam: Normal Inspection. absent: Pedal Edema - Neurological Exam Neurological Exam: Alert, Awake Additional comments: no asterixis - Psychiatric Exam Psychiatric exam: Normal Affect, Normal Mood - Skin Skin Exam: Dry, Intact, Warm Additional comments: jaundice Assessment and Plan - Assessment and Plan (Free Text) Assessment: 58 year old female with PMH of Alcoholic Cirrhosis, HTN, DM presenting with dark stools . Active treatment of decompensated cirrhosis in setting melena concerning for upper GI bleed, alcoholic hepatitis, and CT A/P concerning for a cecal mass. No prior colonoscopy. . 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, 5 (4-5mm) polyps removed, non-bleeding rectal varices, hemorrhoids -06/23 started on nadolol 20mg daily -HR and BP within normal limits -DF >32, MELD-NA 24 -Duplex U/S- very limited, patent hepatic artery -H/H stable -continue PPI 40mg BID and carafate 1g QID -2g sodium diet -counselled on alcohol cessation -ID managing- on Zosyn for UTI -will follow clinical course <Bishnu Holm - Last Filed: 06/24/18 22:56> Objective - Vital Signs/Intake and Output Vital Signs (last 24 hours): Temp Pulse Resp BP Pulse Ox 98.2 F 63 20 115/71 100 06/24/18 06:00 06/24/18 11:49 06/24/18 06:00 06/24/18 11:49 06/24/18 06:00 - Labs Labs: 06/23/18 06:00 06/23/18 06:00 PT 26.2 SECONDS (9.4-12.5) H 06/23/18 02:36 INR 2.26 06/23/18 02:36 APTT 43.1 Seconds (25.1-36.5) H 06/21/18 12:15 Attending/Attestation - Attestation I have personally seen and examined this patient.: Yes I have fully participated in the care of the patient.: Yes I have reviewed all pertinent clinical information, including history, physical exam and plan: Yes Notes (Text): 06/24/18 22:55 Chart reviewed. Pt examined this am and discussed with Dr. Lomas. Agree with the above documented assessment and recommendations.
--- NOTE | 2018-06-24 14:54 | CP.PCM.PN ---
Subjective - Date & Time of Evaluation Date of Evaluation: 06/24/18 Time of Evaluation: 10:40 - Subjective Subjective: Comfortable in bed, no abdominal pain, no dysuria currently, no fevers. Objective - Vital Signs/Intake and Output Vital Signs (last 24 hours): Temp Pulse Resp BP Pulse Ox 98.8 F 70 18 115/78 96 06/23/18 16:20 06/23/18 16:20 06/23/18 16:20 06/23/18 16:20 06/23/18 16:20 Intake and Output: 06/23/18 06/23/18 06:59 18:59 Intake Total 0 250 Balance 0 250 - Medications Medications: Current Medications Acetaminophen (Tylenol 325mg Tab) 650 mg PO Q6H PRN PRN Reason: Pain, Mild (1-3) Last Admin: 06/22/18 16:33 Dose: 650 mg Clonazepam (Klonopin) 0.5 mg PO Q12 PRN; Protocol PRN Reason: Anxiety Piperacillin Sod/Tazobactam Sod (Zosyn 3.375 In Ns 100ml) 100 mls @ 200 mls/hr IVPB Q6 [facility]; Protocol Stop: 06/30/18 18:01 Insulin Detemir (Levemir) 10 unit SC Q12 [facility] Last Admin: 06/23/18 10:31 Dose: 10 unit Insulin Human Regular (Humulin R Med) 0 units SC ACHS [facility]; Protocol Last Admin: 06/23/18 13:28 Dose: Not Given Lactulose (Enulose) 10 gm PO DAILY [facility] Last Admin: 06/23/18 10:29 Dose: Not Given Nadolol (Corgard) 20 mg PO DAILY [facility] Last Admin: 06/23/18 10:28 Dose: 20 mg Ondansetron HCl (Zofran Inj) 4 mg IVP Q6H PRN PRN Reason: Nausea/Vomiting Pantoprazole Sodium (Protonix Ec Tab) 40 mg PO BID [facility] Last Admin: 06/23/18 10:31 Dose: 40 mg Spironolactone (Aldactone) 50 mg PO BID [facility] Last Admin: 06/23/18 10:28 Dose: 50 mg Sucralfate (Carafate Oral Susp) 1 gm PO QID [facility] Last Admin: 06/23/18 13:27 Dose: 1 gm Thiamine HCl (Vitamin B1 Tab) 100 mg PO DAILY [facility] Last Admin: 06/23/18 10:39 Dose: 100 mg - Labs Labs: 06/23/18 06:00 06/23/18 06:00 PT 26.2 SECONDS (9.4-12.5) H 06/23/18 02:36 INR 2.26 06/23/18 02:36 APTT 43.1 Seconds (25.1-36.5) H 06/21/18 12:15 - Constitutional Appears: Chronically Ill - Head Exam Head Exam: NORMAL INSPECTION - Respiratory Exam Respiratory Exam: Decreased Breath Sounds - Cardiovascular Exam Cardiovascular Exam: +S1, +S2 - GI/Abdominal Exam GI & Abdominal Exam: Soft. absent: Tenderness Assessment and Plan - Assessment and Plan (Free Text) Plan: Assessment R/O UTI with Klebsiella and E. faecalis colonic polyps/masses associated with melena S/P removal and biopsy of masses alcohol abuse HTN DM depression anxiety Plan on zosyn - can switch to Augmentin for 3-5 days with outpatient follow up with Dr. Acosta - discussed with Dr. Acosta and he will follow up the patient including the biopsy results
--- NOTE | 2018-06-24 15:09 | DS ---
SUMMARY: She is going to be discharge today. She came in with hepatomegaly, alcoholic liver disease, cirrhosis, GI bleeding, vaginal bleeding, UTI. She had a polypectomy done. She has hypertension and diabetes. Her biggest problem now that she has alcohol abuse and I discuss that with her gain, as I done many, many times before and her family members who really cannot seem to have a change she drinks she gets into trouble, all about, but she had UTI. She will go home on Augmentin 875 twice a day for 8 days. Also, her regular medications and hopefully she will follow with me in the office if she members. She is doing better now. She has not drank any alcohol in 2-3 days. OBJECTIVE: VITAL SIGNS: She has a 98.2 temperature, 63 pulse, 115/71 blood pressure, 20 respiratory rate, 100% O2 sat on room air. HEENT: Head is atraumatic, normocephalic. HEART: Regular rate. LUNGS: Decreased breath sounds, but clear. ABDOMEN: Soft and nontender. Positive bowel sounds. EXTREMITIES: No edema. LABORATORY DATA: She has a UTI. She will be on antibiotics for that 2.9 white counts, it has been up and down in the past, 10.6 hemoglobin, 30.9 hematocrit with 63 platelets. She will need to have a blood test for which she comes to my office next week to make sure that her CBC and her chemistry returns to normal, 2.26 INR, not on Coumadin and shows a better liver functions are. Sodium is 135, potassium 3.9, BUN 8, creatinine 0.8, GFR is greater than 60, last blood sugar was 71, calcium is 8.5, total bili is 8.7 and that is coming down believe it or not. Her AST is 88, ALT 32, alk phos 154. IMPRESSION AND PLAN: She will be discharged today. She is told not to drink anymore. She was seen by Podiatry and Infectious Disease and Gastroenterology and she had gastrointestinal bleeding, diabetes, hypertension, high cholesterol, depression, and alcohol abuse and I am sure she will be back and she is told not to drink anymore no put her on antibiotics. We will check her labs next week. Roc Acosta DO MTDD
== END 2018-06-24 14:22 | disposition home or self-care (01) | DRG 174 ==
LOC: ED 10:36 → ERH 16:39 → 3RNO 21:38
PROVIDERS: ADMIT Family Medicine; ATTEND Family Medicine
PROC: 30233K1 Transfusion of Nonautologous Frozen Plasma into Peripheral Vein, Percutaneous Approach (ICD-10-PCS; 2018-06-22)
PROC: 0DB58ZX Excision of Esophagus, Via Natural or Artificial Opening Endoscopic, Diagnostic (ICD-10-PCS; 2018-06-23)
PROC: 0D5M8ZZ Destruction of Descending Colon, Via Natural or Artificial Opening Endoscopic (ICD-10-PCS; principal; 2018-06-23 07:30)
PROC: 0D5L8ZZ Destruction of Transverse Colon, Via Natural or Artificial Opening Endoscopic (ICD-10-PCS; 2018-06-23 07:30)
PROC: 0D5N8ZZ Destruction of Sigmoid Colon, Via Natural or Artificial Opening Endoscopic (ICD-10-PCS; 2018-06-23 07:30)
DX: K92.2 Gastrointestinal hemorrhage, unspecified (principal); K70.30 Alcoholic cirrhosis of liver without ascites; N39.0 Urinary tract infection, site not specified; B96.1 Klebsiella pneumoniae [K. pneumoniae] as the cause of diseases classified elsewhere; K70.10 Alcoholic hepatitis without ascites; D64.9 Anemia, unspecified; E78.00 Pure hypercholesterolemia, unspecified; E78.5 Hyperlipidemia, unspecified; F10.10 Alcohol abuse, uncomplicated; F17.210 Nicotine dependence, cigarettes, uncomplicated; F32.89 Other specified depressive episodes; F41.9 Anxiety disorder, unspecified; Z87.442 Personal history of urinary calculi; Z87.440 Personal history of urinary (tract) infections; Z83.3 Family history of diabetes mellitus; Z82.49 Family history of ischemic heart disease and other diseases of the circulatory system; E11.9 Type 2 diabetes mellitus without complications; I10 Essential (primary) hypertension; D12.4 Benign neoplasm of descending colon; D12.5 Benign neoplasm of sigmoid colon; D12.3 Benign neoplasm of transverse colon; K64.1 Second degree hemorrhoids; I86.8 Varicose veins of other specified sites; I85.00 Esophageal varices without bleeding; K76.6 Portal hypertension; K31.89 Other diseases of stomach and duodenum; K29.50 Unspecified chronic gastritis without bleeding; K26.9 Duodenal ulcer, unspecified as acute or chronic, without hemorrhage or perforation; K31.819 Angiodysplasia of stomach and duodenum without bleeding; N93.9 Abnormal uterine and vaginal bleeding, unspecified; R16.2 Hepatomegaly with splenomegaly, not elsewhere classified; B95.2 Enterococcus as the cause of diseases classified elsewhere

== ENCOUNTER 2018-08-06 17:48 | Emergency (ER) | payer MEDICAID ==
[2018-08-06 17:49] VITALS: BMI 19.5
[2018-08-06 18:29] LABS: BASO # 0.02 {null, K/mm3} (0.0-2.0); BASO % 0.5 % (0.0-3.0); HEMOGLOBIN 10.9 g/dL (12.0-16.0); LYMPH % 25.5 % (22.0-35.0); MEAN CELL VOLUME 102.6 fl (80.0-105.0); MEAN CORPUSCULAR HEMOGLOBIN 35.4 pg (25.0-35.0); MEAN CORPUSCULAR HGB CONC 34.5 g/dl (31.0-37.0); MEAN PLATELET VOLUME 11.7 fl (7.0-11.0); MONO # 0.3 (0.1-0.6); MONO % 6.4 % (1.0-6.0); RBC 3.08 {null, 10^6/uL} (3.5-6.1); RED CELL DISTRIBUTION WIDTH 15.7 % (11.5-14.5); WHITE BLOOD COUNT 4.1 {null, 10^3/uL} (4.5-11.0)
[2018-08-06 18:37] LABS: ACETAMINOPHEN < 10.0 ug/ml (10.0-20.0); SALICYLATE < 1 mg/dL (2.0-20.0)
[2018-08-06 18:38] LABS: ALB/GLOB RATIO 0.6 (1.1-1.8); ALBUMIN 2.9 g/dL (3.0-4.8); ALT/SGPT 36 U/L (7-56); AST/SGOT 145 U/L (14-36); BLOOD UREA NITROGEN 5 mg/dL (7-21); CALCIUM 8.6 mg/dL (8.4-10.5); GFR NON-AFRICAN AMERICAN > 60; LIPASE 186 U/L (23-300)
[2018-08-06] MEDS ORDERED: Potassium Chloride 20 mEq ER Tab PO STA (18:41)
[2018-08-06 18:43] LABS: INR 1.91; PARTIAL THROMBOPLASTIN TIME 41.7 Seconds (26.9-38.3); PROTHROMBIN TIME 21.2 SECONDS (9.4-12.5)
--- NOTE | 2018-08-06 18:47 | ED PDOC ---
Arrival/HPI - General Historian: Patient - History of Present Illness Narrative History of Present Illness (Text): 08/06/18 18:41 58yo female with pmhx of alcohol abuse, cirrhosis bib EMS with the sister by the bedside for alcohol intoxication. Patient admits drinking alcohol. The sister states she is concerned because the patient lives alone and unable to take care of herself. Patient reports leg pain. The sister states she was set up for rehab, but she never went. Denies chest pain, SOB, diaphoresis, SI/HI, hallucination, any other complaint. <Diru,Happiness A - Last Filed: 08/07/18 00:10> <Ndaeem Good - Last Filed: 08/07/18 02:46> - General Chief Complaint: Alcohol Ingestion Time Seen by Provider: 08/06/18 17:56 Past Medical History - Provider Review Nursing Documentation Reviewed: Yes - Infectious Disease Hx of Infectious Diseases: None - Cardiac Hx Cardiac Disorders: Yes Hx Hypertension: Yes - Pulmonary Hx Respiratory Disorders: No (SMOKES 4 CIG A DAY) - Neurological Hx Neurological Disorder: Yes (bells palsy) - HEENT Hx HEENT Disorder: No - Renal Hx Renal Disorder: Yes Hx Kidney Stones: Yes - Endocrine/Metabolic Hx Diabetes Mellitus Type 2: Yes - Hematological/Oncological Hx Blood Transfusions: No - Integumentary Hx Dermatological Disorder: Yes Other/Comment: BILATERAL PITTING EDEMA +2 - Musculoskeletal/Rheumatological Hx Musculoskeletal Disorders: Yes Hx Falls: Yes Hx Unsteady Gait: Yes (CANE) Other/Comment: left leg inury 4 years ago - Gastrointestinal Hx Gastrointestinal Disorders: Yes (RECTAL BLEED.) Hx Gall Bladder Disease: Yes (gall stones) - Genitourinary/Gynecological Hx Genitourinary Disorders: Yes Hx Urinary Tract Infection: Yes - Psychiatric Hx Psychophysiologic Disorder: Yes (ETOH ABUSE,ILLICIT SUBSTANCE ABUSE H/O,SMOKES 4 CIG A DAY.) Hx Anxiety: Yes Hx Depression: Yes Hx Emotional Abuse: No Hx Physical Abuse: No Hx Substance Use: Yes - Surgical History Hx Orthopedic Surgery: Yes (L KNEE) Other/Comment: gallstones removed. kidmesy stone -lithotripsy. left knee surgery - Anesthesia Hx Anesthesia Reactions: No Hx Malignant Hyperthermia: No - Suicidal Assessment Feels Threatened In Home Enviroment: No <Diru,Happiness A - Last Filed: 08/07/18 00:10> Family/Social History - Physician Review Nursing Documentation Reviewed: Yes Family/Social History: Unknown Family HX Smoking Status: Light Smoker < 10 Cigarettes Daily Hx Alcohol Use: Yes Frequency of alcohol use: Daily Hx Substance Use: Yes <Yariel jones A - Last Filed: 08/07/18 00:10> Allergies/Home Meds <Yariel Kelley A - Last Filed: 08/07/18 00:10> <Nadeem Good - Last Filed: 08/07/18 02:46> Allergies/Adverse Reactions: Allergies No Known Allergies Allergy (Verified 03/09/17 15:13) Home Medications: Home Meds Medication Instructions Recorded Confirmed Insulin Glargine,Hum.rec.anlog 20 unit SC QAM 12/05/12 03/09/17 [Lantus] Spironolactone 50 mg PO BID 12/05/12 03/09/17 Furosemide [Lasix] 20 mg PO DAILY 03/09/17 03/09/17 Insulin Glargine,Hum.rec.anlog 0 units SC DAILY 03/09/17 03/09/17 [Toujeo Solostar] Lactulose [Generlac] 10 gm PO Q8 03/09/17 03/09/17 Multivit/Iron/Folic Acid/Hb179 1 each PO DAILY 03/09/17 03/09/17 [Clem Multivit For Women Caplet] Thiamine [Vitamin B1 Tab] 100 mg PO DAILY 03/09/17 03/09/17 clonazePAM [Klonopin] 0.5 mg PO Q12 PRN 03/09/17 03/09/17 Review of Systems - Physician Review All systems were reviewed & negative as marked: Yes - Review of Systems Systems not reviewed;Unavailable: Intoxicated Constitutional: Normal Eyes: Normal ENT: Normal Respiratory: Normal Cardiovascular: Normal Gastrointestinal: Normal Genitourinary Female: Normal Musculoskeletal: Normal Skin: Normal Neurological: Normal Endocrine: Normal Hemo/Lymphatic: Normal Psychiatric: Normal <Yariel jones A - Last Filed: 08/07/18 00:10> Physical Exam Vital Signs Reviewed: Yes Vital Signs Temp Pulse Resp BP Pulse Ox 08/06/18 18:07 98.5 F 99 H 18 122/81 97 Temperature: Afebrile Blood Pressure: Normal Pulse: Regular Respiratory Rate: Normal Appearance: Positive for: Well-Appearing, Non-Toxic, Comfortable Pain Distress: None Mental Status: Positive for: Alert and Oriented X 3 - Systems Exam Head: Present: Atraumatic, Normocephalic Pupils: Present: PERRL Extroacular Muscles: Present: EOMI Conjunctiva: Present: Normal Mouth: Present: Moist Mucous Membranes Neck: Present: Normal Range of Motion Respiratory/Chest: Present: Clear to Auscultation, Good Air Exchange. No: Respiratory Distress, Accessory Muscle Use Cardiovascular: Present: Regular Rate and Rhythm, Normal S1, S2. No: Murmurs Abdomen: No: Tenderness, Distention, Peritoneal Signs Back: Present: Normal Inspection Upper Extremity: Present: Normal Inspection. No: Cyanosis, Edema Lower Extremity: Present: Normal Inspection. No: Edema Neurological: Present: GCS=15, CN II-XII Intact, Speech Normal Skin: Present: Warm, Dry, Normal Color. No: Rashes Psychiatric: Present: Alert, Oriented x 3, Normal Insight, Normal Concentration <Diru,Happiness A - Last Filed: 08/07/18 00:10> Vital Signs Temp Pulse Resp BP Pulse Ox 08/06/18 19:12 98.1 F 85 19 121/72 99 08/06/18 18:07 98.5 F 99 H 18 122/81 97 <Nadeem Good - Last Filed: 08/07/18 02:46> Medical Decision Making ED Course and Treatment: 08/07/18 00:11 58yo female bib EMS for alcohol intoxication. She was AAO x3. Had alcohol breathe and admitted to drinking today. Labs Alcohol level Dispo pending on alcohol level. Lab was reviewed and thrombocytopenia was chronic from her previous labs. Chemistry is also chronic from her previous labs Case was DW Dr. Acosta and he states he requested that pt be DC home to f/u with him tomorrow. Result and plan was DW both pt and the sister by the bedside. Alcohol level is 300 Pt is pending transportation home. - Lab Interpretations Lab Results: Total Bilirubin 4.6 mg/dL (0.2-1.3) H 08/06/18 18:15 AST 145 U/L (14-36) H D 08/06/18 18:15 ALT 36 U/L (7-56) 08/06/18 18:15 Alkaline Phosphatase 211 U/L (38-126) H D 08/06/18 18:15 Total Protein 8.0 g/dL (5.8-8.3) 08/06/18 18:15 Albumin 2.9 g/dL (3.0-4.8) L 08/06/18 18:15 Globulin 5.1 gm/dL 08/06/18 18:15 Albumin/Globulin Ratio 0.6 (1.1-1.8) L 08/06/18 18:15 Lipase 186 U/L (23-300) 08/06/18 18:15 <DiruHappiness A - Last Filed: 08/07/18 00:10> - Lab Interpretations Lab Results: PT 21.2 SECONDS (9.4-12.5) H 08/06/18 18:15 INR 1.91 08/06/18 18:15 APTT 41.7 Seconds (26.9-38.3) H 08/06/18 18:15 Troponin I < 0.01 ng/mL 08/06/18 18:15 Total Bilirubin 4.6 mg/dL (0.2-1.3) H 08/06/18 18:15 AST 145 U/L (14-36) H D 08/06/18 18:15 ALT 36 U/L (7-56) 08/06/18 18:15 Alkaline Phosphatase 211 U/L (38-126) H D 08/06/18 18:15 Total Protein 8.0 g/dL (5.8-8.3) 08/06/18 18:15 Albumin 2.9 g/dL (3.0-4.8) L 08/06/18 18:15 Globulin 5.1 gm/dL 08/06/18 18:15 Albumin/Globulin Ratio 0.6 (1.1-1.8) L 08/06/18 18:15 Lipase 186 U/L (23-300) 08/06/18 18:15 - Medication Orders Current Medication Orders: Discontinued Medications Famotidine (Pepcid) 40 mg PO STAT STA Stop: 08/06/18 19:50 Last Admin: 08/06/18 19:59 Dose: 40 mg Potassium Chloride (K-Dur 20 Meq Er Tab) 40 meq PO STAT STA Stop: 08/06/18 18:42 Last Admin: 08/06/18 19:08 Dose: 40 meq <Nadeem Good - Last Filed: 08/07/18 02:46> Disposition/Present on Arrival - Present on Arrival Any Indicators Present on Arrival: No History of DVT/PE: No History of Uncontrolled Diabetes: No Urinary Catheter: No History of Decub. Ulcer: No History Surgical Site Infection Following: None - Disposition Have Diagnosis and Disposition been Completed?: Yes <Yariel Kelley - Last Filed: 08/07/18 00:10> - Present on Arrival Any Indicators Present on Arrival: No - Disposition Have Diagnosis and Disposition been Completed?: Yes Disposition Time: 02:45 Patient Plan: Discharge <Nadeem Good - Last Filed: 08/07/18 02:46> - Disposition Diagnosis: Alcohol intoxication Disposition: HOME/ ROUTINE Condition: STABLE Discharge Instructions (ExitCare): Alcohol Abuse and Alcoholism (DC), Alcohol Withdrawal (DC) Print Language: YI Referrals: Stephanie Juarez MD [Medical Doctor] - Follow up with primary Alcoholics Anonymous [Outside] - Follow up with primary [facility] [place] - Follow up with primary Forms: [employer] (Iranian)
[2018-08-06 18:49] LABS: TROPONIN I < 0.01 ng/mL
[2018-08-06 19:13] VITALS: BP 121/72; TEMP 98.1; O2SAT 99
[2018-08-07 02:51] VITALS: PULSE 89; RESP 17
== END 2018-08-07 02:49 | disposition home or self-care (01) ==
LOC: ED 17:48
DX: F10.129 Alcohol abuse with intoxication, unspecified (principal); Y90.8 Blood alcohol level of 240 mg/100 ml or more; I10 Essential (primary) hypertension; E11.9 Type 2 diabetes mellitus without complications; G51.0 Bell's palsy; F41.9 Anxiety disorder, unspecified; F32.9 Major depressive disorder, single episode, unspecified; F17.210 Nicotine dependence, cigarettes, uncomplicated

== ENCOUNTER 2018-09-17 20:13 | Inpatient (IN) | payer MEDICAID ==
[2018-09-17 20:18] VITALS: BMI 24.4
--- NOTE | 2018-09-17 21:07 | ED PDOC ---
Arrival/HPI - General Chief Complaint: Altered Mental Status Time Seen by Provider: 09/17/18 20:14 Historian: Intermediate - History of Present Illness Narrative History of Present Illness (Text): 09/17/18 20:30 Lucila Prieto is a 58 year old female, whose past medical history includes alcohol abuse, liver cirrhosis, hypertension, diabetes, depression, and anxiety, who presents to the emergency department sent for altered mental status. As per family, patient has been altered and not at her baseline mental status today. Limited HPI and ROS secondary to patient's altered mental status. Symptom Onset: Gradual Symptom Course: Unchanged Activities at Onset: Light Context: Home Past Medical History - Provider Review Nursing Documentation Reviewed: Yes - Infectious Disease Hx of Infectious Diseases: None - Cardiac Hx Cardiac Disorders: Yes Hx Hypertension: Yes - Pulmonary Hx Respiratory Disorders: No (SMOKES 4 CIG A DAY) - Neurological Hx Neurological Disorder: Yes (bells palsy) - HEENT Hx HEENT Disorder: No - Renal Hx Renal Disorder: Yes Hx Kidney Stones: Yes - Endocrine/Metabolic Hx Diabetes Mellitus Type 2: Yes - Hematological/Oncological Hx Blood Transfusions: No - Integumentary Hx Dermatological Disorder: Yes Other/Comment: BILATERAL PITTING EDEMA +2 - Musculoskeletal/Rheumatological Hx Musculoskeletal Disorders: Yes Hx Falls: Yes Hx Unsteady Gait: Yes (CANE) Other/Comment: left leg inury 4 years ago - Gastrointestinal Hx Gastrointestinal Disorders: Yes (RECTAL BLEED.) Hx Gall Bladder Disease: Yes (gall stones) - Genitourinary/Gynecological Hx Genitourinary Disorders: Yes Hx Urinary Tract Infection: Yes - Psychiatric Hx Psychophysiologic Disorder: Yes (ETOH ABUSE,ILLICIT SUBSTANCE ABUSE H/O,SMOKES 4 CIG A DAY.) Hx Anxiety: Yes Hx Depression: Yes Hx Emotional Abuse: No Hx Physical Abuse: No Hx Substance Use: Yes - Surgical History Hx Orthopedic Surgery: Yes (L KNEE) Other/Comment: gallstones removed. kidmesy stone -lithotripsy. left knee surgery - Anesthesia Hx Anesthesia Reactions: No Hx Malignant Hyperthermia: No - Suicidal Assessment Feels Threatened In Home Enviroment: No Family/Social History - Physician Review Nursing Documentation Reviewed: Yes Family/Social History: Unknown Family HX Smoking Status: Light Smoker < 10 Cigarettes Daily Hx Alcohol Use: Yes Hx Substance Use: Yes Allergies/Home Meds Allergies/Adverse Reactions: Allergies No Known Allergies Allergy (Verified 09/17/18 20:18) Home Medications: Home Meds Medication Instructions Recorded Confirmed Spironolactone 50 mg PO BID 12/05/12 09/17/18 Ciprofloxacin [Cipro] 500 mg PO BID 09/17/18 09/17/18 Meclizine [Meclizine*] 25 mg PO DAILY 09/17/18 09/17/18 Pantoprazole Sodium [Protonix] 40 mg PO DAILY 09/17/18 09/17/18 buPROPion SR [Wellbutrin SR 150 MG] 150 mg PO DAILY 09/17/18 09/17/18 chlordiazePOXIDE [Librium] 25 mg PO TID 09/17/18 09/17/18 Review of Systems - Review of Systems Systems not reviewed;Unavailable: Altered Mental Status Physical Exam Vital Signs Reviewed: Yes Vital Signs Temp Pulse Resp BP Pulse Ox 09/17/18 20:24 97.4 F L 74 20 101/53 L 98 Temperature: Afebrile Blood Pressure: Normal Pulse: Regular Respiratory Rate: Normal Appearance: Positive for: Well-Appearing, Non-Toxic, Comfortable Pain Distress: None Mental Status: Positive for: other (Altered) Finger Stick Blood Glucose: 86 - Systems Exam Head: Present: Atraumatic, Normocephalic Pupils: Present: PERRL Extroacular Muscles: Present: EOMI Conjunctiva: Present: Normal Mouth: Present: Moist Mucous Membranes Neck: Present: Normal Range of Motion Respiratory/Chest: Present: Clear to Auscultation, Good Air Exchange. No: Respiratory Distress, Accessory Muscle Use Cardiovascular: Present: Regular Rate and Rhythm, Normal S1, S2. No: Murmurs Abdomen: No: Tenderness, Distention, Peritoneal Signs Back: Present: Normal Inspection Upper Extremity: Present: Normal Inspection. No: Cyanosis, Edema Lower Extremity: Present: Normal Inspection. No: Edema Neurological: Present: GCS=15, CN II-XII Intact, Speech Normal Skin: Present: Warm, Dry, Normal Color. No: Rashes Psychiatric: Present: Other (Altered) Medical Decision Making ED Course and Treatment: 09/17/18 20:30 Impression: 58 year old female brought in for altered mental status. Plan: -- CT Head w/o contrast -- EKG -- CXR -- Labs, ammonia level, TSH, cardiac enzymes, blood cultures -- Urinalysis, urine cultures, urine drug screen -- Reassess and disposition Prior Visits: Notes and results from previous visits were reviewed. Progress Notes: Reviewed EKG, NSR at 74 bpm[address] Non-specific ST/T wave changes. 09/17/18 22:[address] Acosta, who is aware and agrees with plan. Accepts pt in to his service. Pt admitted to Telemetry for hepatic encephalopathy. 09/17/18 22:52 CT Head: BRAIN: No acute intraparenchymal hemorrhage. No mass lesion. No CT evidence for acute territorial infarct. No midline shift or extra-axial collections. Generalized cerebral atrophy is present, symmetric by diffuse sulcal and ventricular prominence. Mild periventricular hypo-densities are present, most likely on the basis of microangiopathic disease. VENTRICLES: No hydrocephalus. ORBITS: The orbits are unremarkable. SINUSES AND MASTOIDS: The paranasal sinuses and mastoid air cells are clear. BONES: No fracture. SOFT TISSUES: Unremarkable. IMPRESSION: Generalized cerebral atrophy and evidence of microangiopathic disease. No acute intracranial abnormality. Electronically signed on Sep 17, 2018 10:46:56 PM EDT by: Nguyen Hope M.D., Certified by [facility], Diagnostic Radiology - Lab Interpretations I have reviewed the lab results: Yes - RAD Interpretation Radiology Orders: 09/17/18 20:36 HEAD W/O CONTRAST [CT] Stat 09/17/18 20:37 CHEST ONE VIEW [RAD] Stat Animal Health Technician: ED Physician, Radiologist - EKG Interpretation Interpreted by ED Physician: Yes Type: 12 lead EKG - Scribe Statement The provider has reviewed the documentation as recorded by the [place] Provider Scribe Attestation: All medical record entries made by the Scribe were at my direction and personally dictated by me. I have reviewed the chart and agree that the record accurately reflects my personal performance of the history, physical exam, medical decision making, and the department course for this patient. I have also personally directed, reviewed, and agree with the discharge instructions and disposition. Disposition/Present on Arrival - Present on Arrival Any Indicators Present on Arrival: No History of DVT/PE: No History of Uncontrolled Diabetes: No Urinary Catheter: No History of Decub. Ulcer: No History Surgical Site Infection Following: None - Disposition Have Diagnosis and Disposition been Completed?: Yes Diagnosis: Electrolyte abnormality, Hepatic encephalopathy Disposition: HOSPITALIZED Disposition Time: 22:55 Condition: FAIR
[2018-09-17 21:10] LABS: BASO # 0.01 K/mm3 (0.0-2.0); BASO % 0.4 % (0.0-3.0); EOS # 0.1 (0.0-0.7); EOS % 2.9 % (1.5-5.0); HEMOGLOBIN 9.6 g/dL (12.0-16.0); LYMPH # 0.8 (1.2-3.4); LYMPH % 35.1 % (22.0-35.0); MEAN CELL VOLUME 107.1 fl (80.0-105.0); MEAN CORPUSCULAR HEMOGLOBIN 35.8 pg (25.0-35.0); MEAN CORPUSCULAR HGB CONC 33.4 g/dl (31.0-37.0); MEAN PLATELET VOLUME 10.5 fl (7.0-11.0); MONO # 0.3 (0.1-0.6); MONO % 10.9 % (1.0-6.0); RBC 2.68 10^6/uL (3.5-6.1); RED CELL DISTRIBUTION WIDTH 19.8 % (11.5-14.5); WHITE BLOOD COUNT 2.4 10^3/uL (4.5-11.0)
[2018-09-17 21:18] LABS: ACETAMINOPHEN < 10.0 ug/ml (10.0-20.0); SALICYLATE < 1 mg/dL (2.0-20.0)
[2018-09-17 21:19] LABS: INR 2.45; PARTIAL THROMBOPLASTIN TIME 43.7 Seconds (26.9-38.3); PROTHROMBIN TIME 27.2 SECONDS (9.4-12.5)
[2018-09-17 21:31] LABS: TROPONIN I < 0.01 ng/mL
[2018-09-17 21:34] LABS: ALB/GLOB RATIO 0.5 (1.1-1.8); ALBUMIN 2.6 g/dL (3.0-4.8); ALT/SGPT 24 U/L (7-56); AST/SGOT 55 U/L (14-36); BLOOD UREA NITROGEN 6 mg/dL (7-21); CALCIUM 8.3 mg/dL (8.4-10.5); GFR NON-AFRICAN AMERICAN > 60
[2018-09-17] MEDS ORDERED: Sodium Chloride 0.9% 1,000 ML IV STA (23:21)
[2018-09-17 23:58] LABS: PH,URINE 6.5 (4.7-8.0); URINE BILIRUBIN MODERATE (NEGATIVE); URINE BLOOD NEGATIVE (NEGATIVE); URINE GLUCOSE (UA) NEGATIVE (NEGATIVE); URINE LEUKOCYTE ESTERASE NEGATIVE Leu/uL (NEGATIVE); URINE PROTEIN TRACE mg/dL (<30 mg/dL); URINE UROBILINOGEN >=8.0 E.U./dL (<1 E.U./dL)
[2018-09-17 23:59] LABS: URINE APPEARANCE CLEAR (CLEAR); URINE COLOR DARK YELLOW (YELLOW)
[2018-09-18 00:28] LABS: URINE BACTERIA RARE /hpf; URINE EPITHELIAL CELLS 0 - 2 /hpf (0-5); URINE RBC 0 - 2 /hpf (0-2); URINE WBC 0 - 2 /hpf (0-6)
[2018-09-18 00:47] LABS: BARBITURATES, UR NEGATIVE (NEGATIVE); BENZODIAZEPINES, UR POSITIVE (NEGATIVE); OPIATES, UR NEGATIVE (NEGATIVE); PHENCYCLIDINE, UR NEGATIVE (NEGATIVE)
[2018-09-18] MEDS: Insulin Reg-LOW-Coverage SC SCH ×4 (07:57→22:01)
[2018-09-18] MEDS ORDERED: Potassium Chloride 20 mEq/15 ml LIQ UD PO STA (08:49)
[2018-09-18 09:39] LABS: ALB/GLOB RATIO 0.5 (1.1-1.8); ALBUMIN 2.3 g/dL (3.0-4.8); ALT/SGPT 15 U/L (7-56); AST/SGOT 47 U/L (14-36); BILIRUBIN,DIRECT 3.7 mg/dL (0.0-0.4); BLOOD UREA NITROGEN 6 mg/dL (7-21); GFR NON-AFRICAN AMERICAN > 60
--- NOTE | 2018-09-18 09:42 | RAD ---
Date of service: 09/17/2018 PROCEDURE: CHEST RADIOGRAPH, 1 VIEW HISTORY: ams COMPARISON: 06/21/2018 FINDINGS: LUNGS: Clear. PLEURA: No pneumothorax or pleural fluid seen. CARDIOVASCULAR: No aortic atherosclerotic calcification present. Normal. OSSEOUS STRUCTURES: No significant abnormalities. VISUALIZED UPPER ABDOMEN: Normal. OTHER FINDINGS: None. IMPRESSION: No active disease.
--- NOTE | 2018-09-18 10:16 | CT ---
Date of service: 09/17/2018 PROCEDURE: CT HEAD WITHOUT CONTRAST. HISTORY: ams COMPARISON: None available. TECHNIQUE: Axial computed tomography images were obtained through the head/brain without intravenous contrast. Radiation dose: Total exam DLP = 1060.9 mGy-cm. This CT exam was performed using one or more of the following dose reduction techniques: Automated exposure control, adjustment of the mA and/or kV according to patient size, and/or use of iterative reconstruction technique. FINDINGS: HEMORRHAGE: No intracranial hemorrhage. BRAIN: No mass effect or edema. Mild chronic microvascular ischemic changes. VENTRICLES: Unremarkable. No hydrocephalus. CALVARIUM: Unremarkable. PARANASAL SINUSES: Unremarkable as visualized. No significant inflammatory changes. MASTOID AIR CELLS: Unremarkable as visualized. No inflammatory changes. OTHER FINDINGS: None. IMPRESSION: No acute hemorrhage.
[2018-09-18] MEDS: Pantoprazole 40 mg EC Tab PO SCH (10:26)
[2018-09-18] MEDS: buPROPion SR 150 MG TABLET PO SCH (10:27)
[2018-09-18] MEDS: Sodium Chloride 0.45% 1,000 ML IV SCH (10:28)
[2018-09-18 10:55] LABS: INR 2.56; PROTHROMBIN TIME 28.9 SECONDS (9.4-12.5)
--- NOTE | 2018-09-18 13:29 | CP.PCM.CON ---
<Nati Lomas - Last Filed: 09/18/18 14:16> History of Present Illness - History of Present Illness History of Present Illness: Gastroenterology Fellow/PGY6 Consult Note 58 year old female with PMH of Decompensated Alcoholic Cirrhosis 2/2 hepatic encephalopathy, Alcoholic hepatitis 06/2018 with active alcohol abuse (last confirmed use 09/2018 by family), HTN, Diabetes, and Depression/Anxiety presenting with confusion. Patient is oriented to self and place. Recent ER viit 08/06/18 for alcohol intoxication. Patient notes mid-abdominal pain and confusion for the last two days. Admits to dark urine for the last two weeks. Denies recent alcohol use. Limited review of systems obtained in setting of confusion. Patient's sister, Cassandra, contacted who confirms she knows patient drank at least two weeks ago. She also notes the patient fell a week ago leading to hitting the back of her head. EGD/colonoscopy (06/2018) showed Grade 1 esophageal varices, moderate portal hypertensive gastropathy, first portion duodenal superficial 1cm ulcer (Jacky III classification), second portion duodenal AVM s/p APC, 6 sub- cm (4-7mm) polyps (1-serrated adenoma, 1 tubular adenoma, 4 hyperplastic), non-bleeding rectal varices, and Grade II internal hemorrhoids. Patient was started on nadolol 20mg daily in 06/2018 for primary prophylaxis. Family History-denies stomach cancer, colon cancer Social History-one pint hard liquor daily for many years, over 30 pack years, denies illicit drug use Surgical History- cholecystectomy, left knee surgery, lithotripsy Past Patient History - Infectious Disease Hx of Infectious Diseases: None - Past Social History Smoking Status: Light Smoker < 10 Cigarettes Daily - CARDIAC Hx Cardiac Disorders: Yes Hx Hypertension: Yes - PULMONARY Hx Respiratory Disorders: No (SMOKES 4 CIG A DAY) - NEUROLOGICAL Hx Neurological Disorder: Yes (bells palsy) - HEENT Hx HEENT Problems: No - RENAL Hx Chronic Kidney Disease: Yes Hx Kidney Stones: Yes - ENDOCRINE/METABOLIC Hx Diabetes Mellitus Type 2: Yes - HEMATOLOGICAL/ONCOLOGICAL Hx Blood Transfusions: No - INTEGUMENTARY Hx Dermatological Problems: Yes Other/Comment: BILATERAL PITTING EDEMA +2 - MUSCULOSKELETAL/RHEUMATOLOGICAL Hx Musculoskeletal Disorders: Yes Hx Falls: Yes Hx Unsteady Gait: Yes (CANE) Other/Comment: left leg inury 4 years ago - GASTROINTESTINAL Hx Gastrointestinal Disorders: Yes (RECTAL BLEED.) Hx Gall Bladder Disease: Yes (gall stones) - GENITOURINARY/GYNECOLOGICAL Hx Genitourinary Disorders: Yes Hx Urinary Tract Infection: Yes - PSYCHIATRIC Hx Psychophysiologic Disorder: Yes (ETOH ABUSE,ILLICIT SUBSTANCE ABUSE H/O,SMOKES 4 CIG A DAY.) Hx Anxiety: Yes Hx Depression: Yes Hx Emotional Abuse: No Hx Physical Abuse: No Hx Substance Use: Yes - SURGICAL HISTORY Hx Orthopedic Surgery: Yes (L KNEE) Other/Comment: gallstones removed. kidmesy stone -lithotripsy. left knee surgery - ANESTHESIA Hx Anesthesia Reactions: No Hx Malignant Hyperthermia: No Meds Allergies/Adverse Reactions: Allergies Allergy/AdvReac Type Severity Reaction Status Date / Time No Known Allergies Allergy Verified 09/17/18 20:18 - Medications Medications: Current Medications Bupropion HCl (Wellbutrin Sr 150 Mg) 150 mg PO DAILY [facility] Last Admin: 09/18/18 10:27 Dose: 150 mg Chlordiazepoxide (Librium) 25 mg PO TID [facility]; Protocol Last Admin: 09/18/18 10:26 Dose: 25 mg Sodium Chloride (Sodium Chloride 0.9%) 1,000 mls @ 60 mls/hr IV .[id number] STA Stop: 09/18/18 16:00 Last Admin: 09/17/18 23:45 Dose: 60 mls/hr Sodium Chloride (Sodium Chloride 0.45%) 1,000 mls @ 40 mls/hr IV .Q24H [facility] Last Admin: 09/18/18 10:28 Dose: 40 mls/hr Insulin Human Regular (Humulin R Low) 0 units SC ACHS [facility]; Protocol Last Admin: 09/18/18 11:54 Dose: Not Given Lactulose (Enulose) 20 gm PO Q6H [facility] Last Admin: 09/18/18 10:26 Dose: 20 gm Pantoprazole Sodium (Protonix Ec Tab) 40 mg PO DAILY [facility] Last Admin: 09/18/18 10:26 Dose: 40 mg Spironolactone (Aldactone) 50 mg PO BID [facility] Last Admin: 09/18/18 10:26 Dose: 50 mg Physical Exam - Constitutional Appears: Non-toxic, No Acute Distress, Confused - Head Exam Head Exam: ATRAUMATIC, NORMOCEPHALIC - Eye Exam Eye Exam: EOMI, PERRL, Scleral icterus Pupil Exam: PERRL. absent: Miosis, Mydriatic - ENT Exam ENT Exam: Mucous Membranes Moist, Normal Oropharynx - Neck Exam Neck exam: Positive for: Full Rom, Normal Inspection - Respiratory Exam Respiratory Exam: Clear to Auscultation Bilateral. absent: Rales, Rhonchi, Wheezes - Cardiovascular Exam Cardiovascular Exam: RRR, +S1, +S2. absent: Gallop, Rubs - GI/Abdominal Exam GI & Abdominal Exam: Normal Bowel Sounds, Organomegaly, Soft, Tenderness. absent: Distended, Firm, Guarding, Rebound, Rigid Additional comments: mid-epigastric discomfort - Extremities Exam Extremities exam: Positive for: normal inspection. Negative for: pedal edema - Neurological Exam Neurological exam: Alert Additional comments: oriented to self and place, asterixis present - Psychiatric Exam Psychiatric exam: Normal Affect, Normal Mood - Skin Skin Exam: Dry, Intact, Warm Additional comments: jaundice Results - Vital Signs Recent Vital Signs: Last Vital Signs Temp 97.9 F 09/18/18 12:00 Pulse 77 09/18/18 12:00 Resp 19 09/18/18 12:00 BP 106/71 09/18/18 12:00 Pulse Ox 97 09/18/18 10:26 - Labs Result Diagrams: 09/17/18 20:40 09/18/18 09:15 Labs: Laboratory Results - last 24 hr 09/17/18 09/17/18 09/17/18 20:18 20:40 20:40 WBC 2.4 L D RBC 2.68 L Hgb 9.6 L Hct 28.7 L MCV 107.1 H D MCH 35.8 H MCHC 33.4 RDW 19.8 H Plt Count 55 L MPV 10.5 Neut % (Auto) 50.7 Lymph % (Auto) 35.1 H [place] % (Auto) 10.9 H Eos % (Auto) 2.9 Baso % (Auto) 0.4 Lymph # (Auto) 0.8 L [place] # (Auto) 0.3 Eos # (Auto) 0.1 Baso # (Auto) 0.01 Absolute Neuts (auto) 1.21 L PT 27.2 H INR 2.45 APTT 43.7 H Sodium Potassium Chloride Carbon Dioxide Anion Gap BUN Creatinine Est GFR ( Amer) Est GFR (Non-Af Amer) POC Glucose (mg/dL) 86 Random Glucose Calcium Phosphorus Magnesium Total Bilirubin Direct Bilirubin AST ALT Alkaline Phosphatase Ammonia Lactate Dehydrogenase Total Creatine Kinase Troponin I Total Protein Albumin Globulin Albumin/Globulin Ratio TSH 3rd Generation Urine Color Urine Appearance Urine pH Ur Specific [place] Urine Protein Urine Glucose (UA) Urine Ketones Urine Blood Urine Nitrate Urine Bilirubin Urine Urobilinogen Ur Leukocyte Esterase Urine RBC Urine WBC Ur Epithelial Cells Urine Bacteria Salicylates Urine Opiates Screen Urine Methadone Screen Acetaminophen Ur Barbiturates Screen Ur Phencyclidine Scrn Ur Amphetamines Screen U Benzodiazepines Scrn U Oth Cocaine Metabols U Cannabinoids Screen Alcohol, Quantitative Blood Type Antibody Screen BBK History Checked 09/17/18 09/17/18 09/17/18 20:40 20:40 20:40 WBC RBC Hgb Hct MCV MCH MCHC RDW Plt Count MPV Neut % (Auto) Lymph % (Auto) [place] % (Auto) Eos % (Auto) Baso % (Auto) Lymph # (Auto) [place] # (Auto) Eos # (Auto) Baso # (Auto) Absolute Neuts (auto) PT INR APTT Sodium 137 Potassium 2.8 L* Chloride 110 H Carbon Dioxide 19 L Anion Gap 11 BUN 6 L Creatinine 0.7 Est GFR ( Amer) > 60 Est GFR (Non-Af Amer) > 60 POC Glucose (mg/dL) Random Glucose 79 Calcium 8.3 L Phosphorus 3.8 Magnesium 1.3 L Total Bilirubin 6.5 H Direct Bilirubin AST 55 H D ALT 24 Alkaline Phosphatase 110 Ammonia Lactate Dehydrogenase 485 Total Creatine Kinase 31 L Troponin I < 0.01 Total Protein 7.6 Albumin 2.6 L Globulin 5.0 Albumin/Globulin Ratio 0.5 L TSH 3rd Generation 3.03 Urine Color Urine Appearance Urine pH Ur Specific [place] Urine Protein Urine Glucose (UA) Urine Ketones Urine Blood Urine Nitrate Urine Bilirubin Urine Urobilinogen Ur Leukocyte Esterase Urine RBC Urine WBC Ur Epithelial Cells Urine Bacteria Salicylates < 1 L Urine Opiates Screen Urine Methadone Screen Acetaminophen < 10.0 L Ur Barbiturates Screen Ur Phencyclidine Scrn Ur Amphetamines Screen U Benzodiazepines Scrn U Oth Cocaine Metabols U Cannabinoids Screen Alcohol, Quantitative < 10 Blood Type Antibody Screen BBK History Checked 09/17/18 09/17/18 09/17/18 21:00 23:30 23:30 WBC RBC Hgb Hct MCV MCH MCHC RDW Plt Count MPV Neut % (Auto) Lymph % (Auto) [place] % (Auto) Eos % (Auto) Baso % (Auto) Lymph # (Auto) [place] # (Auto) Eos # (Auto) Baso # (Auto) Absolute Neuts (auto) PT INR APTT Sodium Potassium Chloride Carbon Dioxide Anion Gap BUN Creatinine Est GFR ( Amer) Est GFR (Non-Af Amer) POC Glucose (mg/dL) Random Glucose Calcium Phosphorus Magnesium Total Bilirubin Direct Bilirubin AST ALT Alkaline Phosphatase Ammonia 70 H Lactate Dehydrogenase Total Creatine Kinase Troponin I Total Protein Albumin Globulin Albumin/Globulin Ratio TSH 3rd Generation Urine Color Dark yellow Urine Appearance Clear Urine pH 6.5 Ur Specific [place] 1.025 Urine Protein Trace H Urine Glucose (UA) Negative Urine Ketones Negative Urine Blood Negative Urine Nitrate Negative Urine Bilirubin Moderate H Urine Urobilinogen >=8.0 Ur Leukocyte Esterase Negative Urine RBC 0 - 2 Urine WBC 0 - 2 Ur Epithelial Cells 0 - 2 Urine Bacteria Rare Salicylates Urine Opiates Screen Negative Urine Methadone Screen Negative Acetaminophen Ur Barbiturates Screen Negative Ur Phencyclidine Scrn Negative Ur Amphetamines Screen Negative U Benzodiazepines Scrn Positive H U Oth Cocaine Metabols Negative U Cannabinoids Screen Negative Alcohol, Quantitative Blood Type Antibody Screen BBK History Checked 09/18/18 09/18/18 09/18/18 07:20 09:15 10:30 WBC RBC Hgb Hct MCV MCH MCHC RDW Plt Count MPV Neut % (Auto) Lymph % (Auto) [place] % (Auto) Eos % (Auto) Baso % (Auto) Lymph # (Auto) [place] # (Auto) Eos # (Auto) Baso # (Auto) Absolute Neuts (auto) PT 28.9 H INR 2.56 APTT Sodium 136 Potassium 3.1 L Chloride 111 H Carbon Dioxide 18 L Anion Gap 11 BUN 6 L Creatinine 0.6 L Est GFR ( Amer) > 60 Est GFR (Non-Af Amer) > 60 POC Glucose (mg/dL) Random Glucose 84 Calcium 8.0 L Phosphorus 3.7 Magnesium 1.3 L Total Bilirubin 6.1 H Direct Bilirubin 3.7 H AST 47 H ALT 15 Alkaline Phosphatase 98 Ammonia Lactate Dehydrogenase Total Creatine Kinase Troponin I Total Protein 6.7 Albumin 2.3 L Globulin 4.4 Albumin/Globulin Ratio 0.5 L TSH 3rd Generation Urine Color Urine Appearance Urine pH Ur Specific [place] Urine Protein Urine Glucose (UA) Urine Ketones Urine Blood Urine Nitrate Urine Bilirubin Urine Urobilinogen Ur Leukocyte Esterase Urine RBC Urine WBC Ur Epithelial Cells Urine Bacteria Salicylates Urine Opiates Screen Urine Methadone Screen Acetaminophen Ur Barbiturates Screen Ur Phencyclidine Scrn Ur Amphetamines Screen U Benzodiazepines Scrn U Oth Cocaine Metabols U Cannabinoids Screen Alcohol, Quantitative Blood Type AB POSITIVE Antibody Screen Negative BBK History Checked Patient has bt Assessment & Plan - Assessment and Plan (Free Text) Assessment: 58 year old female with PMH of Decompensated Alcoholic Cirrhosis 2/2 hepatic encephalopathy, Alcoholic hepatitis 06/2018 with active alcohol abuse (last confirmed use 09/2018 by family), HTN, Diabetes, and Depression/Anxiety presenting with confusion. Active treatment of decompensated cirrhosis 2/2 Grade 2 hepatic encephalopathy complicated by alcoholic hepatitis. EGD 06/2018 showed Grade 1 esophageal varices, moderate portal hypertensive gastropathy, first portion duodenal superficial 1cm ulcer (Jacky III classification), second portion duodenal AVM s/p APC. Colonoscopy 06/2018 showed 6 sub-cm (4-7mm) polyps (1 serrated adenoma, 1 tubular adenoma, 4 hyperplastic), non-bleeding rectal varices, and Grade II internal hemorrhoids. Patient was started on nadolol 20mg daily in 06/2018 for primary prophylaxis. Plan: -09/17 MELD-Na 25, Madd[place] DF 74 -Lactulose 20g Q6H, titrate to three bowel movements daily -ordered extra lactulose dose- no bowel movement since admission -CT head- no acute findings -Chest xray and U/A- no signs of infection -pending blood and urine cultures -trend LFTs and bilirubin -ordered CT with multi-phase for liver protocol and Duplex U/S -06/2018 CT PO/IV-advanced liver enhancement and micro-nodular regeneration -06/2018 Duplex- patent portal vein with hepatofugal flow -low sodium, high protein diet -Pepcid BID, zofran PRN -provide electrolyte replacements -patient is poor candidate for steroids in setting of alcoholic hepatitis given cirrhosis medication non-compliance and ongoing alcohol abuse -will follow clinical course <Valerio Miller - Last Filed: 09/18/18 17:36> Meds - Medications Medications: Current Medications Bupropion HCl (Wellbutrin Sr 150 Mg) 150 mg PO DAILY [facility] Last Admin: 04/15/19 10:27 Dose: 150 mg Chlordiazepoxide (Librium) 25 mg PO TID [facility]; Protocol Last Admin: 09/18/18 14:47 Dose: 25 mg Sodium Chloride (Sodium Chloride 0.45%) 1,000 mls @ 40 mls/hr IV .Q24H [facility] Last Admin: 09/18/18 10:28 Dose: 40 mls/hr Insulin Human Regular (Humulin R Low) 0 units SC ACHS [facility]; Protocol Last Admin: 09/18/18 17:24 Dose: Not Given Lactulose (Enulose) 20 gm PO Q6 [facility] Pantoprazole Sodium (Protonix Ec Tab) 40 mg PO DAILY [facility] Last Admin: 09/18/18 10:26 Dose: 40 mg Spironolactone (Aldactone) 50 mg PO BID [facility] Last Admin: 09/18/18 10:26 Dose: 50 mg Results - Vital Signs Recent Vital Signs: Last Vital Signs Temp 97.9 F 09/18/18 12:00 Pulse 74 09/18/18 14:00 Resp 19 09/18/18 12:00 BP 106/71 09/18/18 12:00 Pulse Ox 97 09/18/18 10:26 - Labs Result Diagrams: 09/17/18 20:40 09/18/18 09:15 Labs: Laboratory Results - last 24 hr 09/17/18 09/17/18 09/17/18 20:18 20:40 20:40 WBC 2.4 L D RBC 2.68 L Hgb 9.6 L Hct 28.7 L MCV 107.1 H D MCH 35.8 H MCHC 33.4 RDW 19.8 H Plt Count 55 L MPV 10.5 Neut % (Auto) 50.7 Lymph % (Auto) 35.1 H [place] % (Auto) 10.9 H Eos % (Auto) 2.9 Baso % (Auto) 0.4 Lymph # (Auto) 0.8 L [place] # (Auto) 0.3 Eos # (Auto) 0.1 Baso # (Auto) 0.01 Absolute Neuts (auto) 1.21 L PT 27.2 H INR 2.45 APTT 43.7 H Sodium Potassium Chloride Carbon Dioxide Anion Gap BUN Creatinine Est GFR ( Amer) Est GFR (Non-Af Amer) POC Glucose (mg/dL) 86 Random Glucose Calcium Phosphorus Magnesium Total Bilirubin Direct Bilirubin AST ALT Alkaline Phosphatase Ammonia Lactate Dehydrogenase Total Creatine Kinase Troponin I Total Protein Albumin Globulin Albumin/Globulin Ratio TSH 3rd Generation Urine Color Urine Appearance Urine pH Ur Specific [place] Urine Protein Urine Glucose (UA) Urine Ketones Urine Blood Urine Nitrate Urine Bilirubin Urine Urobilinogen Ur Leukocyte Esterase Urine RBC Urine WBC Ur Epithelial Cells Urine Bacteria Salicylates Urine Opiates Screen Urine Methadone Screen Acetaminophen Ur Barbiturates Screen Ur Phencyclidine Scrn Ur Amphetamines Screen U Benzodiazepines Scrn U Oth Cocaine Metabols U Cannabinoids Screen Alcohol, Quantitative Blood Type Antibody Screen BBK History Checked 09/17/18 09/17/18 09/17/18 20:40 20:40 20:40 WBC RBC Hgb Hct MCV MCH MCHC RDW Plt Count MPV Neut % (Auto) Lymph % (Auto) [place] % (Auto) Eos % (Auto) Baso % (Auto) Lymph # (Auto) [place] # (Auto) Eos # (Auto) Baso # (Auto) Absolute Neuts (auto) PT INR APTT Sodium 137 Potassium 2.8 L* Chloride 110 H Carbon Dioxide 19 L Anion Gap 11 BUN 6 L Creatinine 0.7 Est GFR ( Amer) > 60 Est GFR (Non-Af Amer) > 60 POC Glucose (mg/dL) Random Glucose 79 Calcium 8.3 L Phosphorus 3.8 Magnesium 1.3 L Total Bilirubin 6.5 H Direct Bilirubin AST 55 H D ALT 24 Alkaline Phosphatase 110 Ammonia Lactate Dehydrogenase 485 Total Creatine Kinase 31 L Troponin I < 0.01 Total Protein 7.6 Albumin 2.6 L Globulin 5.0 Albumin/Globulin Ratio 0.5 L TSH 3rd Generation 3.03 Urine Color Urine Appearance Urine pH Ur Specific [place] Urine Protein Urine Glucose (UA) Urine Ketones Urine Blood Urine Nitrate Urine Bilirubin Urine Urobilinogen Ur Leukocyte Esterase Urine RBC Urine WBC Ur Epithelial Cells Urine Bacteria Salicylates < 1 L Urine Opiates Screen Urine Methadone Screen Acetaminophen < 10.0 L Ur Barbiturates Screen Ur Phencyclidine Scrn Ur Amphetamines Screen U Benzodiazepines Scrn U Oth Cocaine Metabols U Cannabinoids Screen Alcohol, Quantitative < 10 Blood Type Antibody Screen BBK History Checked 09/17/18 09/17/18 09/17/18 21:00 23:30 23:30 WBC RBC Hgb Hct MCV MCH MCHC RDW Plt Count MPV Neut % (Auto) Lymph % (Auto) [place] % (Auto) Eos % (Auto) Baso % (Auto) Lymph # (Auto) [place] # (Auto) Eos # (Auto) Baso # (Auto) Absolute Neuts (auto) PT INR APTT Sodium Potassium Chloride Carbon Dioxide Anion Gap BUN Creatinine Est GFR ( Amer) Est GFR (Non-Af Amer) POC Glucose (mg/dL) Random Glucose Calcium Phosphorus Magnesium Total Bilirubin Direct Bilirubin AST ALT Alkaline Phosphatase Ammonia 70 H Lactate Dehydrogenase Total Creatine Kinase Troponin I Total Protein Albumin Globulin Albumin/Globulin Ratio TSH 3rd Generation Urine Color Dark yellow Urine Appearance Clear Urine pH 6.5 Ur Specific [place] 1.025 Urine Protein Trace H Urine Glucose (UA) Negative Urine Ketones Negative Urine Blood Negative Urine Nitrate Negative Urine Bilirubin Moderate H Urine Urobilinogen >=8.0 Ur Leukocyte Esterase Negative Urine RBC 0 - 2 Urine WBC 0 - 2 Ur Epithelial Cells 0 - 2 Urine Bacteria Rare Salicylates Urine Opiates Screen Negative Urine Methadone Screen Negative Acetaminophen Ur Barbiturates Screen Negative Ur Phencyclidine Scrn Negative Ur Amphetamines Screen Negative U Benzodiazepines Scrn Positive H U Oth Cocaine Metabols Negative U Cannabinoids Screen Negative Alcohol, Quantitative Blood Type Antibody Screen BBK History Checked 09/18/18 09/18/18 09/18/18 07:20 09:15 10:30 WBC RBC Hgb Hct MCV MCH MCHC RDW Plt Count MPV Neut % (Auto) Lymph % (Auto) [place] % (Auto) Eos % (Auto) Baso % (Auto) Lymph # (Auto) [place] # (Auto) Eos # (Auto) Baso # (Auto) Absolute Neuts (auto) PT 28.9 H INR 2.56 APTT Sodium 136 Potassium 3.1 L Chloride 111 H Carbon Dioxide 18 L Anion Gap 11 BUN 6 L Creatinine 0.6 L Est GFR ( Amer) > 60 Est GFR (Non-Af Amer) > 60 POC Glucose (mg/dL) Random Glucose 84 Calcium 8.0 L Phosphorus 3.7 Magnesium 1.3 L Total Bilirubin 6.1 H Direct Bilirubin 3.7 H AST 47 H ALT 15 Alkaline Phosphatase 98 Ammonia Lactate Dehydrogenase Total Creatine Kinase Troponin I Total Protein 6.7 Albumin 2.3 L Globulin 4.4 Albumin/Globulin Ratio 0.5 L TSH 3rd Generation Urine Color Urine Appearance Urine pH Ur Specific [place] Urine Protein Urine Glucose (UA) Urine Ketones Urine Blood Urine Nitrate Urine Bilirubin Urine Urobilinogen Ur Leukocyte Esterase Urine RBC Urine WBC Ur Epithelial Cells Urine Bacteria Salicylates Urine Opiates Screen Urine Methadone Screen Acetaminophen Ur Barbiturates Screen Ur Phencyclidine Scrn Ur Amphetamines Screen U Benzodiazepines Scrn U Oth Cocaine Metabols U Cannabinoids Screen Alcohol, Quantitative Blood Type AB POSITIVE Antibody Screen Negative BBK History Checked Patient has bt Attending/Attestation - Attestation I have fully participated in the care of the patient.: Yes I have reviewed all pertinent clinical information: Yes Notes (Text): 09/18/18 17:33 Decompensated ETOH cirrhosis, admission MELD 25 DF > 70 HTN/DM Altered mental status, hepatic encephalopathy - Low sodium diet as tolerated - Continue with lactulose therapy for HE prevention, titrate so patient has 3-4 bowel movements daily - Follow up blood cultures - Continue to monitor LFTs - Patient unlikely candidate for steroid therapy in acute ETOH hepatitis given known history of medication non-compliance, though will reassess after ruling out any acute infectious process - Follow up CT and US imaging - ETOH cessation counseling - Overall poor patient prognosis, will continue to monitor clinical course
--- NOTE | 2018-09-18 17:41 | CARD ---
APPROVED REPORT Date of service: 09/17/2018 EKG Measurement Heart [id number] <Conclusion> Normal sinus rhythm Possible Left atrial enlargement Borderline ECG
--- NOTE | 2018-09-18 19:39 | US ---
PROCEDURE: Portal vein duplex ultrasound. CLINICAL HISTORY: Cirrhosis. Deteriorating liver function. Evaluate for portal vein thrombosis. PHYSICIAN(S): Francisco Garg M.D. FINDINGS: The evaluation is limited. The liver parenchyma is not evaluated adequately The extrahepatic portal vein is patent with hepatopetal flow. The hepatic artery is hypertrophied The central hepatic veins are patent. No ascites is appreciated. IMPRESSION: 1. Patent portal vein with hepatopetal flow.
--- NOTE | 2018-09-18 20:35 | HP ---
DATE OF EXAM: 09/18/2018 HISTORY OF PRESENT ILLNESS: I was called to see her this morning. I have known her for many years. She is 58-year-old female who comes in with altered mental status. She is usually having drinking issues and alcohol issues for many years. PAST MEDICAL HISTORY: Alcohol abuse, liver cirrhosis, hypertension, diabetes, depression and anxiety, hepatic encephalopathy in the past. She has now change in mentation. She still smokes cigarettes. She is still drinking fluids. She has history of hypertension and Rothman's palsy. History of kidney stones, diabetes, pitting edema in the past, falls in the past. She walks with a cane with an unsteady gait. She needs physical therapy. She hurt her leg 4 years ago. She has a rectal bleed history, gallstones, urinary tract infection history, alcohol abuse, illicit substance abuse, smoking still, anxiety and depression, she had left knee surgery, gallstones removed, kidney stones lithotripsy, left knee surgery. FAMILY HISTORY: Unknown family history. SOCIAL HISTORY: She still smokes, still drinks, still does substance abuse. ALLERGIES: NO KNOWN DRUG ALLERGIES. MEDICATIONS: She is on spironolactone. She was on Cipro for UTI, meclizine, Protonix, Wellbutrin, and Librium. REVIEW OF SYSTEMS: She is alert this morning, pleasantly confused. No chest pain or shortness of breath. No abdominal pain. Fairly comfortable. PHYSICAL EXAMINATION GENERAL: She is well appearing, alert, nontoxic, a little altered. VITAL SIGNS: She has a 97.4 temperature, 74 pulse, 20 respiratory rate, 101/53 blood pressure, and 98% O2 saturation. HEENT: Head; atraumatic, normocephalic. Extraocular muscles are intact. Pupils equally react to light. Throat is moist. NECK: Supple. HEART: Regular rate. Normal S1, S2. LUNGS: Decreased breath sounds bilaterally but clear to auscultation. ABDOMEN: Soft, nontender. Positive bowel sounds. No guarding, no rebound no CVA tenderness. EXTREMITIES: No edema bilaterally. NEUROLOGIC: GCS is 50. Cranial nerves II through XII grossly intact. Speech is off, a little slurred. SKIN: Warm and dry. No apparent rashes or ulcers. LYMPHATICS: Thyroid midline. No palpable appreciable lymphadenopathy. LABORATORY DATA: She had multiple tests done. She has a CT scan of the head and chest x-ray that are pending, an EKG that is pending. The urine was positive for benzodiazepines on a tox screen. Urine was moderate bilirubin, little bacteria. A 137 sodium, potassium is 2.8, it should be replaced. BUN is 6, creatinine 0.7, GFR is greater than 60, sugar is 79, calcium is 8.3, phosphorous 3.8 and magnesium 1.3, total bilirubin is 6.5. AST is 55, ALT is 24, alk phos 110. Ammonia level is very high at 70. Lactate dehydrogenase is 45. Troponin I is less than 0.01, total protein is 7.6, albumin is 2.6. TSH is 3.03. INR is 2.45 and she is not on any Coumadin. She has a 2.4 white count low, with 9.6 hemoglobin, 28.7 hematocrit with a 55 platelets. ASSESSMENT AND PLAN: She is closer to pancytopenia: I will call in Hematology-oncology, Gastroenterology. Lactulose, replace the potassium and we will watch her IV fluids and physical therapy. Roc Acosta DO
[2018-09-19] MEDS: Sodium Chloride 0.45% 1,000 ML IV SCH ×2 (05:19→08:45)
[2018-09-19 06:09] LABS: HEMOGLOBIN 9.7 g/dL (12.0-16.0); MEAN CELL VOLUME 107.3 fl (80.0-105.0); MEAN CORPUSCULAR HEMOGLOBIN 35.5 pg (25.0-35.0); MEAN CORPUSCULAR HGB CONC 33.1 g/dl (31.0-37.0); MEAN PLATELET VOLUME 10.7 fl (7.0-11.0); RBC 2.73 10^6/uL (3.5-6.1); RED CELL DISTRIBUTION WIDTH 19.3 % (11.5-14.5); WHITE BLOOD COUNT 2.1 10^3/uL (4.5-11.0)
[2018-09-19 06:49] LABS: ALB/GLOB RATIO 0.5 (1.1-1.8); ALBUMIN 2.5 g/dL (3.0-4.8); ALT/SGPT 22 U/L (7-56); AST/SGOT 50 U/L (14-36); BLOOD UREA NITROGEN 5 mg/dL (7-21); CALCIUM 8.2 mg/dL (8.4-10.5); GFR NON-AFRICAN AMERICAN > 60
--- NOTE | 2018-09-19 07:15 | CP.PCM.PN ---
<Nati Lomas - Last Filed: 09/19/18 07:47> Subjective - Date & Time of Evaluation Date of Evaluation: 09/19/18 Time of Evaluation: 07:14 - Subjective Subjective: Gastroenterology Fellow/PGY6 Progress Note Patient resting comfortably. Improved articulation of words in setting hepatic encephalopathy. Four bowel movements overnight. Tolerated low sodium diet. Oriented to self and place. A 12-point review of systems negative except for as above. Objective - Vital Signs/Intake and Output Vital Signs (last 24 hours): Temp Pulse Resp BP Pulse Ox 98.1 F 77 20 111/71 96 09/19/18 05:41 09/19/18 05:41 09/19/18 05:41 09/19/18 05:41 09/19/18 05:41 Intake and Output: 09/19/18 09/19/18 06:59 18:59 Intake Total 1230 Balance 1230 - Medications Medications: Current Medications Bupropion HCl (Wellbutrin Sr 150 Mg) 150 mg PO DAILY [facility] Last Admin: 09/18/18 10:27 Dose: 150 mg Chlordiazepoxide (Librium) 25 mg PO TID [facility]; Protocol Last Admin: 09/18/18 18:03 Dose: 25 mg Sodium Chloride (Sodium Chloride 0.45%) 1,000 mls @ 40 mls/hr IV .Q24H [facility] Last Admin: 09/19/18 05:19 Dose: 40 mls/hr Insulin Human Regular (Humulin R Low) 0 units SC ACHS [facility]; Protocol Last Admin: 09/18/18 22:01 Dose: Not Given Lactulose (Enulose) 20 gm PO BID [facility] Pantoprazole Sodium (Protonix Ec Tab) 40 mg PO DAILY [facility] Last Admin: 09/18/18 10:26 Dose: 40 mg Spironolactone (Aldactone) 50 mg PO BID [facility] Last Admin: 09/18/18 18:00 Dose: 50 mg - Labs Labs: 09/19/18 05:30 09/19/18 05:30 PT 28.9 SECONDS (9.4-12.5) H 09/18/18 10:30 INR 2.56 09/18/18 10:30 APTT 43.7 Seconds (26.9-38.3) H 09/17/18 20:40 Assessment and Plan - Assessment and Plan (Free Text) Assessment: 58 year old female with PMH of Decompensated Alcoholic Cirrhosis 2/2 hepatic encephalopathy, Alcoholic hepatitis 06/2018 with active alcohol abuse (last confirmed use 09/2018 by family), HTN, Diabetes, and Depression/Anxiety presenting with confusion. Active treatment of decompensated cirrhosis 2/2 Grade 2 hepatic encephalopathy complicated by alcoholic hepatitis. EGD 06/2018 showed Grade 1 esophageal varices, moderate portal hypertensive gastropathy, first portion duodenal superficial 1cm ulcer (Jacky III classification), second portion duodenal AVM s/p APC. Colonoscopy 06/2018 showed 6 sub-cm (4-7mm) polyps (1 serrated adenoma, 1 tubular adenoma, 4 hyperplastic), non-bleeding rectal varices, and Grade II internal hemorrhoids. Patient was started on nadolol 20mg daily in 06/2018 for primary prophylaxis. Plan: -09/18 MELD- Na 23, Uri DF 80 -will discuss initiation of steroids for alcoholic hepatitis based on review of todays labs -Lactulose 20g BID, titrate to 2-3 bowel movements daily -blood culture negative to date, negative U/A, pending urine culture -pending CT with multi-phase for liver protocol and Duplex U/S -low sodium, high protein diet -Pepcid BID, zofran PRN -trend LFTs and bilirubin -family counselled on patient compliance to medical therapy and need for alcohol cessation -patient counselled on alcohol cessation -will follow clinical course <Valerio Miller - Last Filed: 09/19/18 13:27> Objective - Vital Signs/Intake and Output Vital Signs (last 24 hours): Temp Pulse Resp BP Pulse Ox 98 F 78 18 109/71 96 09/19/18 12:00 09/19/18 12:00 09/19/18 12:00 09/19/18 12:00 09/19/18 05:41 Intake and Output: 09/19/18 09/19/18 06:59 18:59 Intake Total 1230 Balance 1230 - Medications Medications: Current Medications Bupropion HCl (Wellbutrin Sr 150 Mg) 150 mg PO DAILY [facility] Last Admin: 09/19/18 09:53 Dose: 150 mg Chlordiazepoxide (Librium) 25 mg PO TID [facility]; Protocol Last Admin: 09/19/18 13:02 Dose: 25 mg Sodium Chloride (Sodium Chloride 0.45%) 1,000 mls @ 40 mls/hr IV .Q24H [facility] Last Admin: 09/19/18 08:45 Dose: Not Given Insulin Human Regular (Humulin R Low) 0 units SC ACHS [facility]; Protocol Last Admin: 09/18/18 22:01 Dose: Not Given Lactulose (Enulose) 20 gm PO BID [facility] Last Admin: 09/19/18 09:53 Dose: 20 gm Pantoprazole Sodium (Protonix Ec Tab) 40 mg PO DAILY [facility] Last Admin: 09/19/18 09:53 Dose: 40 mg Spironolactone (Aldactone) 50 mg PO BID [facility] Last Admin: 09/19/18 09:53 Dose: 50 mg - Labs Labs: 09/19/18 05:30 09/19/18 05:30 PT 26.6 SECONDS (9.4-12.5) H 09/19/18 07:40 INR 2.35 09/19/18 07:40 APTT 42.0 Seconds (26.9-38.3) H 09/19/18 07:40 Attending/Attestation - Attestation I have fully participated in the care of the patient.: Yes I have reviewed all pertinent clinical information, including history, physical exam and plan: Yes Notes (Text): 09/19/18 13:25 Decompensated ETOH cirrhosis Altered mental status - hepatic encephalopathy HTN/DM Anxiety - Low sodium diet as tolerated - Continue with lactulose therapy for HE prevention - CT liver reviewed by me showing cirrhosis without focal liver lesions - Patient unlikely to be optimal candidate for steroid therapy for acute ETOH hepatitis given known medication non-compliance - Continue to monitor LFTs - ETOH cessation counseling - Will continue to monitor patient clinical course
[2018-09-19] MEDS: Insulin Reg-LOW-Coverage SC SCH ×4 (07:30→23:06)
[2018-09-19 08:30] LABS: INR 2.35; PROTHROMBIN TIME 26.6 SECONDS (9.4-12.5)
[2018-09-19] MEDS ORDERED: Potassium Chloride 20 mEq ER Tab PO ONE (08:59)
--- NOTE | 2018-09-19 09:49 | US ---
Date of service: 09/18/2018 HISTORY: evaluate for ascites COMPARISON: None. TECHNIQUE: Sonographic evaluation of the abdomen. FINDINGS: LIVER: Measures 15.3 cm. There is diffuse increased echogenicity of the liver parenchyma. No mass. No intrahepatic bile duct dilatation. There is a large recanalized umbilical vein. GALLBLADDER: Surgically absent. COMMON BILE DUCT: Measures 4.8 mm. No stones. No dilatation. PANCREAS: Normal in size and echotexture. No mass. No ductal dilatation. RIGHT KIDNEY: Measures 11.7cm. Normal echogenicity. No calculus, mass, or hydronephrosis. LEFT KIDNEY: Measures 11.3cm. Normal echogenicity. No calculus, mass, or hydronephrosis. SPLEEN: Enlarged and measures 15.5 cm normal echotexture AORTA: No aneurysmal dilatation. IVC: Unremarkable. OTHER FINDINGS: No abdominal ascites. IMPRESSION: 1. Fatty liver. 2. Mild splenomegaly. 3. No abdominal ascites. 4. Large recanalized umbilical vein.
[2018-09-19] MEDS: Pantoprazole 40 mg EC Tab PO SCH (09:53)
[2018-09-19] MEDS: buPROPion SR 150 MG TABLET PO SCH (09:53)
--- NOTE | 2018-09-19 10:44 | CT ---
Date of service: 09/19/2018 PROCEDURE: CT Abdomen and Pelvis with and without intravenous contrast HISTORY: pain,cirrhosis, obtain 3minute delay phase-liver COMPARISON: 06/21/2018 TECHNIQUE: Axial images of the abdomen were obtained in the pre contrast, portal venous and delayed phases of enhancement. Coronal and sagittal reformats were generated. Contrast dose: 150 cc of Omni 350 Radiation dose: Total exam DLP = 2541.24 mGy-cm. This CT exam was performed using one or more of the following dose reduction techniques: Automated exposure control, adjustment of the mA and/or kV according to patient size, and/or use of iterative reconstruction technique. FINDINGS: LOWER THORAX: Unremarkable. LIVER: The liver has an irregular contour consistent with cirrhosis. There is a heterogeneous enhancement pattern consistent with micro nodular regeneration. There are no focal lesions identified to suggest malignancy. There is normal enhancement of the portal and hepatic veins. There is recanalization and enlargement of the umbilical veins. GALLBLADDER AND BILE DUCTS: Gallbladder removed PANCREAS: Unremarkable. No gross lesion or ductal dilatation. SPLEEN: Mild splenomegaly. The spleen measures 6.7 x 15.2 cm transversely ADRENALS: Unremarkable. No mass. KIDNEYS AND URETERS: Unremarkable. No hydronephrosis. No solid mass. VASCULATURE: Unremarkable. No aortic aneurysm. Mild aortic calcification BOWEL: Unremarkable. No obstruction. No gross mural thickening. APPENDIX: Normal appendix. PERITONEUM: There is a small amount of ascites. LYMPH NODES: Unremarkable. No enlarged lymph nodes. BLADDER: Unremarkable. REPRODUCTIVE: Unremarkable. BONES: No acute fracture. OTHER FINDINGS: None. IMPRESSION: The liver has an irregular contour consistent with cirrhosis. There is a heterogeneous enhancement pattern consistent with micro nodular regeneration. There are no focal lesions identified to suggest malignancy. There is normal enhancement of the portal and hepatic veins. There is recanalization and enlargement of the umbilical veins.
--- NOTE | 2018-09-19 11:19 | PN ---
DATE: 09/19/2018 SUBJECTIVE: She went for a test this morning. She is resting in bed. Her speech is not that great. She is not eating much at all, does not want to take even the breakfast this morning. Her labs are back with all of the lab tests. She is in no pain. Just lethargic, not speaking great yet. OBJECTIVE: VITAL SIGNS: Temperature 98.1, pulse 77, blood pressure 111/71, respiratory rate 20, 96% O2 sat on room air. HEENT: Head is atraumatic, normocephalic. Mouth is dry. The IV is out. HEART: Regular rate. LUNGS: Decreased breath sounds, but clear. ABDOMEN: Mildly distended. Soft and nontender with decreased bowel sounds. EXTREMITIES: No edema. MEDICATIONS: She is currently on Aldactone, Enulose, insulin, potassium replacement, Librium, Protonix, IV fluids, and Wellbutrin. LABORATORY DATA: She has a 2.1 white count, went down; 9.7 hemoglobin; 29.3 hematocrit with 58 platelets. INR 2.35, sodium 138, potassium 3.4 and better with IV . BUN 5, creatinine 0.6, GFR is greater than 60, sugar is 92, calcium is 8.2, total bili is 6, AST is 50, ALT 22, alk phos 101, ammonia is down to 30 which is good. Total protein is 7.2. Urine was moderate bili, otherwise, clear, positive for benzodiazepines, micro is negative. IMPRESSION AND PLAN: Physical therapy. Recommended [facility]. I also like [facility] because she will not be drinking alcohol there also. We will be treating with the IV fluids, try to get her to eat. We will make goals to get her into [facility]; [facility], [facility]. We will continue aggressive gastrointestinal care, awaiting more tests that were done. The patient has hepatic encephalopathy and she is not eating yet. Roc Acosta DO MTDD
--- NOTE | 2018-09-19 13:20 | US ---
PROCEDURE: Left lower extremity venous US HISTORY: Leg pain and swelling. Evaluate for DVT. PHYSICIAN(S): Francisco Garg MD. TECHNIQUE: Duplex sonography and color-flow Doppler with graded compression were used to evaluate the deep venous system of the left lower extremity. FINDINGS: The visualized deep venous system of the left lower extremity is sonographically normal and compressible. Normal wave forms and augmentation are seen. There is no sonographic evidence for deep venous thrombosis in the visualized segments of the left lower extremity. IMPRESSION: 1. No sonographic evidence for deep venous thrombosis in the visualized segments of the left lower extremity.
--- NOTE | 2018-09-19 16:33 | CON ---
DATE: 09/17/2018 HEMATOLOGY CONSULTATION HISTORY OF PRESENT ILLNESS: This is a 58-year-old woman with hepatic encephalopathy and coagulopathy. She gives me a poor history, but she does drink alcohol and she smokes. PHYSICAL EXAMINATION: SKIN: No petechiae. No bruises. HEENT: Anicteric. NODES: Nonpalpable masses in the axillary, cervical, supraclavicular, and inguinal regions. LUNGS: Clear at present. No vertebral tenderness. The patient is able to lie flat in bed. HEART: S1 and S2. BREASTS: Shows no mass, discharge, or dimpling. ABDOMEN: Shows no ascites, no tenderness, no liver, no spleen. EXTREMITIES: No edema. CENTRAL NERVOUS SYSTEM: Plantars are downward going. Two issues, one is the pancytopenia with a white count of about 2, hemoglobin low, platelet count below 100. ASSESSMENT AND PLAN: She has no clinical manifestations of this. She does have a high ammonium level. My suspicion is that this is all pancytopenia secondary to direct alcohol effect as well as cirrhosis and hypersplenism. Second issue is her PT/PTT. INR is elevated. INR is about 2.4. My suspicion is that she has a low fibrinogen, which is causing the fibrinogenemia, which is causing the elevated PT/PTT. So, I have ordered a PT/PTT and we did a fibrinogen to document this. However, I would not act on this in terms of treatment, she has no clinical manifestations at this point and I have asked her to stop drinking alcohol, this should improve the function of the cells and her living. Brody Lagos MD
[2018-09-20 06:52] LABS: MEAN CELL VOLUME 106.8 fl (80.0-105.0); MEAN CORPUSCULAR HEMOGLOBIN 35.7 pg (25.0-35.0); MEAN CORPUSCULAR HGB CONC 33.4 g/dl (31.0-37.0); MEAN PLATELET VOLUME 11.4 fl (7.0-11.0); RBC 2.8 10^6/uL (3.5-6.1); RED CELL DISTRIBUTION WIDTH 18.7 % (11.5-14.5); WHITE BLOOD COUNT 2.9 10^3/uL (4.5-11.0)
[2018-09-20 06:58] LABS: INR 1.96; PROTHROMBIN TIME 22.1 SECONDS (9.4-12.5)
[2018-09-20 08:00] LABS: ALB/GLOB RATIO 0.5 (1.1-1.8); ALBUMIN 2.3 g/dL (3.0-4.8); ALT/SGPT 20 U/L (7-56); AST/SGOT 41 U/L (14-36); BLOOD UREA NITROGEN 3 mg/dL (7-21); CALCIUM 7.9 mg/dL (8.4-10.5); GFR NON-AFRICAN AMERICAN > 60
[2018-09-20] MEDS: Insulin Reg-LOW-Coverage SC SCH ×4 (09:03→21:59)
[2018-09-20] MEDS: buPROPion SR 150 MG TABLET PO SCH (10:28)
--- NOTE | 2018-09-20 10:30 | CP.PCM.PN ---
<Otto Lynn - Last Filed: 09/20/18 13:59> Subjective - Date & Time of Evaluation Date of Evaluation: 09/20/18 Time of Evaluation: 07:30 - Subjective Subjective: PGY-4 GI Fellow Prog Note Pt sleeping in bed when seen this AM. She woke to loud verbal stimulation and was not very interactive wanting to be left alone. She eventually denied any complaints and was oriented to person, place and stated year was "19" with some garbled/slurred speech. 5 point ROS negative other than stated above Objective - Vital Signs/Intake and Output Vital Signs (last 24 hours): Temp Pulse Resp BP Pulse Ox 97.7 F 83 18 117/73 97 09/20/18 06:00 09/20/18 06:00 09/20/18 06:00 09/20/18 06:00 09/20/18 06:00 Intake and Output: 09/20/18 09/20/18 06:59 18:59 Intake Total 240 Balance 240 - Medications Medications: Current Medications Bupropion HCl (Wellbutrin Sr 150 Mg) 150 mg PO DAILY [facility] Last Admin: 09/19/18 09:53 Dose: 150 mg Chlordiazepoxide (Librium) 25 mg PO TID [facility]; Protocol Last Admin: 09/19/18 17:27 Dose: 25 mg Sodium Chloride (Sodium Chloride 0.45%) 1,000 mls @ 40 mls/hr IV .Q24H [facility] Last Admin: 09/19/18 08:45 Dose: Not Given Insulin Human Regular (Humulin R Low) 0 units SC ACHS [facility]; Protocol Last Admin: 09/20/18 09:03 Dose: Not Given Lactulose (Enulose) 20 gm PO BID [facility] Last Admin: 09/19/18 17:27 Dose: 20 gm Pantoprazole Sodium (Protonix Ec Tab) 40 mg PO DAILY [facility] Last Admin: 09/19/18 09:53 Dose: 40 mg Spironolactone (Aldactone) 50 mg PO BID [facility] Last Admin: 09/19/18 17:27 Dose: 50 mg - Labs Labs: 09/20/18 06:20 09/20/18 06:20 PT 22.1 SECONDS (9.4-12.5) H 09/20/18 06:20 INR 1.96 09/20/18 06:20 APTT 42.0 Seconds (26.9-38.3) H 09/19/18 07:40 - Constitutional Appears: No Acute Distress, Chronically Ill - Head Exam Head Exam: ATRAUMATIC, NORMAL INSPECTION - ENT Exam ENT Exam: Mucous Membranes Dry. absent: Mucous Membranes Moist - Respiratory Exam Respiratory Exam: NORMAL BREATHING PATTERN. absent: Accessory Muscle Use - GI/Abdominal Exam GI & Abdominal Exam: Distended (mildly), Soft, Normal Bowel Sounds. absent: Bruit, Firm, Guarding, Tenderness, Organomegaly, Pulsatile Mass Assessment and Plan - Assessment and Plan (Free Text) Assessment: 58 year old female with PMH of Decompensated Alcoholic Cirrhosis 2/2 hepatic encephalopathy, Alcoholic hepatitis 06/2018 with active alcohol abuse (last confirmed use 09/2018 by family), HTN, Diabetes, and Depression/Anxiety presenting with confusion. Active treatment of decompensated cirrhosis 2/2 Grade 2 hepatic encephalopathy complicated by alcoholic hepatitis. EGD 06/2018 showed Grade 1 esophageal varices, moderate portal hypertensive gastropathy, first portion duodenal superficial 1cm ulcer (Jacky III classification), second portion duodenal AVM s/p APC. Colonoscopy 06/2018 showed 6 sub-cm (4-7mm) polyps (1 serrated adenoma, 1 tubular adenoma, 4 hyperplastic), non-bleeding rectal varices, and Grade II internal hemorrhoids. Patient was started on nadolol 20mg daily in 06/2018 for primary prophylaxis. Plan: -09/18 MELD- Na 23, Maddrey DF 80 -Pt poor steroid candidate given h/o non-compliance and ongoing EtOH abuse -Lactulose 20g BID, titrate to 2-3 bowel movements daily -Cultures negative/NGTD -CT with multi-phase for liver protocol and Duplex U/S without focal mass and portal vasculature patent -low sodium, high protein diet -Pepcid BID, zofran PRN -family counselled on patient compliance to medical therapy and need for alcohol cessation -patient counselled on alcohol cessation Pt discussed with Dr. Miller; please see attestation for further recs/changes <Valerio Miller - Last Filed: 09/20/18 16:18> Objective - Vital Signs/Intake and Output Vital Signs (last 24 hours): Temp Pulse Resp BP Pulse Ox 98.1 F 84 18 116/73 97 09/20/18 12:00 09/20/18 12:00 09/20/18 12:00 09/20/18 12:00 09/20/18 06:00 Intake and Output: 09/20/18 09/20/18 06:59 18:59 Intake Total 240 Balance 240 - Medications Medications: Current Medications Bupropion HCl (Wellbutrin Sr 150 Mg) 150 mg PO DAILY [facility] Last Admin: 09/20/18 10:28 Dose: 150 mg Chlordiazepoxide (Librium) 25 mg PO TID [facility]; Protocol Last Admin: 09/20/18 13:30 Dose: 25 mg Sodium Chloride (Sodium Chloride 0.45%) 1,000 mls @ 40 mls/hr IV .Q24H [facility] Last Admin: 09/20/18 10:43 Dose: 40 mls/hr Insulin Human Regular (Humulin R Low) 0 units SC ACHS [facility]; Protocol Last Admin: 09/20/18 13:08 Dose: Not Given Lactulose (Enulose) 20 gm PO BID [facility] Last Admin: 09/20/18 10:29 Dose: 20 gm Pantoprazole Sodium (Protonix Ec Tab) 40 mg PO DAILY [facility] Last Admin: 09/20/18 10:37 Dose: Not Given Spironolactone (Aldactone) 50 mg PO BID [facility] Last Admin: 09/20/18 10:28 Dose: 50 mg - Labs Labs: 09/20/18 06:20 09/20/18 06:20 PT 22.1 SECONDS (9.4-12.5) H 09/20/18 06:20 INR 1.96 09/20/18 06:20 APTT 42.0 Seconds (26.9-38.3) H 09/19/18 07:40 Attending/Attestation - Attestation I have fully participated in the care of the patient.: Yes I have reviewed all pertinent clinical information, including history, physical exam and plan: Yes Notes (Text): 09/20/18 16:06 Decompensated ETOH cirrhosis Altered mental status - Hepatic encephalopathy HTN DM - Low sodium diet as tolerated - Continue with lactulose therapy for HE prevention, titrate so patient has 3-4 bowel movements daily - LFTs stable, continue to monitor - Patient is poor candidate for steroid therapy in acute ETOH hepatitis due to known medical non-compliance - ETOH cessation counseling - No further planned GI intervention at this time, will sign off case. Patient would benefit from additional outpatient follow up. Please reconsult as necessary, thank you.
[2018-09-20] MEDS: Pantoprazole 40 mg EC Tab PO SCH (10:37)
[2018-09-20] MEDS: Sodium Chloride 0.45% 1,000 ML IV SCH (10:43)
--- NOTE | 2018-09-20 11:27 | PN ---
DATE: 09/20/2018 SUBJECTIVE: I saw her this morning in bed, extremely tired, still sleeping. I tried to wake her up, difficult to get her up. I would like her to go to [facility] for physical therapy. I believe that is the best place for her before she goes to home. PHYSICAL EXAMINATION VITAL SIGNS: She has 97.7 temperature, 83 pulse, 117/73 blood pressure, 18 respiratory rate, and 97% O2 sat on room air. HEENT: Head is atraumatic and normocephalic. HEART: Regular rate. LUNGS: Decreased breath sounds, but clear. ABDOMEN: Soft. EXTREMITIES: No edema. MEDICATIONS: She is currently on spironolactone, Enulose,, Librium, Protonix, IV fluids, and Wellbutrin. LABORATORY DATA: She has a white count of 2.9, it is a pancytopenia as per Oncology/Hematology from alcohol-related issues and it is up to 2.9. Hemoglobin is 10, hematocrit 29.9, and platelets of 74, they are improving. INR is 1.96 which is coming down. She has a 136 sodium, potassium 3.6, BUN 3, creatinine 0.6, GFR is greater than 60, sugar is 89, calcium is 7.9, and total bili is 5.4. AST is, ALT is 20, alk phos 86. Ammonia is 34 and she is on Enulose, no growth. ASSESSMENT AND PLAN: She is being seen by Oncology/ Hematology and Gastroenterology. She had a liver CT which showed cirrhosis. I think the best place for her is a [facility], it is where she can get through the metabolic encephalopathy and has a history of alcohol abuse, I am hoping that pancytopenia will improve too as well from alcohol, she should do well. IV fluids are running. Physical therapy; out of bed to chair, hopefully [facility] in the next 24 hours. Roc Acosta DO MTDD
[2018-09-21 05:39] VITALS: RESP 18
[2018-09-21 06:49] LABS: BLOOD UREA NITROGEN 3 mg/dL (7-21); GFR NON-AFRICAN AMERICAN > 60; HEMOGLOBIN 9.6 g/dL (12.0-16.0); MEAN CELL VOLUME 106.9 fl (80.0-105.0); MEAN CORPUSCULAR HEMOGLOBIN 34.8 pg (25.0-35.0); MEAN CORPUSCULAR HGB CONC 32.5 g/dl (31.0-37.0); MEAN PLATELET VOLUME 10.1 fl (7.0-11.0); RBC 2.76 10^6/uL (3.5-6.1); RED CELL DISTRIBUTION WIDTH 18.2 % (11.5-14.5); WHITE BLOOD COUNT 3.3 10^3/uL (4.5-11.0)
[2018-09-21 06:50] LABS: ALB/GLOB RATIO 0.5 (1.1-1.8); ALBUMIN 2.1 g/dL (3.0-4.8); ALT/SGPT 18 U/L (7-56); AST/SGOT 34 U/L (14-36); CALCIUM 7.9 mg/dL (8.4-10.5)
[2018-09-21] MEDS: Insulin Reg-LOW-Coverage SC SCH ×4 (07:30→21:16)
[2018-09-21] MEDS: Sodium Chloride 0.45% 1,000 ML IV SCH ×2 (08:45→17:51)
[2018-09-21] MEDS ORDERED: Potassium Chloride 20 mEq ER Tab PO ONE (08:52)
[2018-09-21] MEDS: Pantoprazole 40 mg EC Tab PO SCH (10:15)
[2018-09-21] MEDS: buPROPion SR 150 MG TABLET PO SCH (10:19)
--- NOTE | 2018-09-21 11:03 | PN ---
DATE: 09/21/2018 SUBJECTIVE: She is resting in bed. She is little bit confused, not too strong. She has a bunch of issues, metabolic encephalopathy, pancytopenia, alcohol abuse, history of cirrhosis. She is resting in bed. go to a subacute rehab. I think we can do that there. She get physical therapy. I think she could use the therapy also. She is eating a little bit not great. PHYSICAL EXAMINATION: VITAL SIGNS: She has a 98.2 temperature, 82 pulse, 101/67 blood pressure, 18 respiratory rate, 90% O2 sat on room air. HEENT: Head is atraumatic and normocephalic. She is sluggish to discuss and talk. HEART: Regular rate. LUNGS: Decreased breath sounds. ABDOMEN: Soft. EXTREMITIES: No edema. MEDICATIONS: She is on Aldactone, Enulose, insulin, Librium, Protonix, IV fluids, and Wellbutrin. LABORATORY DATA: She has a white count of 3.3 getting better, 9.6 hemoglobin, 29.5 of hematocrit with 60 platelets. 1.96 INR. Sodium 136, potassium of 3.3, I gave her potassium, BUN 3, creatinine 0.5, GFR is greater than 60, sugar is 70, calcium is 7.9, total bilirubin is 5.7, AST is 34, ALT 18, alkaline phosphatase 77, total protein is 6.3. She is being seen by Gastroenterology, Oncology and subacute rehab in next 24-hours. The patient had metabolic encephalopathy, cirrhosis, pancytopenia with alcohol history abuse. Roc Acosta DO MTDD
--- NOTE | 2018-09-21 15:04 | CP.PCM.PCO ---
Physician Communication Note - Physician Communication Note Physician Communication Note: ams sec to hepatic encephlopathy. c/w lactulose. f/u gi and PT/[facility]..
[2018-09-21] MEDS ORDERED: Saliva Substitute 44.3 ML PO PRN (17:10)
[2018-09-22 02:32] VITALS: O2SAT 99
[2018-09-22 06:52] LABS: HEMOGLOBIN 9.3 g/dL (12.0-16.0); MEAN CELL VOLUME 106.4 fl (80.0-105.0); MEAN CORPUSCULAR HEMOGLOBIN 35.2 pg (25.0-35.0); MEAN CORPUSCULAR HGB CONC 33.1 g/dl (31.0-37.0); MEAN PLATELET VOLUME 9.8 fl (7.0-11.0); RBC 2.64 10^6/uL (3.5-6.1); WHITE BLOOD COUNT 3.6 10^3/uL (4.5-11.0)
[2018-09-22 07:04] LABS: ALB/GLOB RATIO 0.5 (1.1-1.8); ALBUMIN 2.2 g/dL (3.0-4.8); ALT/SGPT 15 U/L (7-56); AST/SGOT 38 U/L (14-36); BLOOD UREA NITROGEN 4 mg/dL (7-21); CALCIUM 8.2 mg/dL (8.4-10.5); GFR NON-AFRICAN AMERICAN > 60
[2018-09-22] MEDS: Insulin Reg-LOW-Coverage SC SCH ×4 (08:33→22:38)
[2018-09-22] MEDS ORDERED: Potassium Chloride 20 mEq ER Tab PO ONE (08:34)
--- NOTE | 2018-09-22 09:15 | PN ---
DATE: 09/22/2018 SUBJECTIVE: She is actually a little bit more awake this morning than the last couple of mornings, more talkative, has an appetite, good spirits. She knows she needs physical therapy before she go home. I believe at physical therapy, she will not be drinking and smoking doing drugs that is also a good thing. She is motivated to do it, also waiting for insurance to allow it to happen. Recommendations from physical therapy is go to [facility]. OBJECTIVE: VITAL SIGNS: She has a 98.4 temperature, 82 pulse, 102/60 blood pressure, 18 respiratory rate, 99% O2 sat on room air. HEENT: Head is atraumatic, normocephalic, more alert, talking better. HEART: Regular rate. LUNGS: Decreased breath sounds, but clear. ABDOMEN: Soft. EXTREMITIES: No edema. MEDICATIONS: She is currently on Aldactone, Enulose, insulin, Librium, Protonix, saliva, IV fluids, Wellbutrin and potassium replacement. LABORATORY DATA: She has a white count of 3.6, it is actually getting better; 9.3 hemoglobin; 28.1 hematocrit with 62 platelets. INR is 1.96. Sodium 135, potassium 3.4 being replaced. BUN 4, creatinine 0.6, GFR is greater than 60, sugar 71, calcium is 8.2, total bili is 5.1. AST is 30, ALT is 15, alk phos 99, total protein 6.5. IMPRESSION AND PLAN: She is being seen by Neurology and Gastroenterology. She had hepatic encephalopathy, continue the lactulose. She needs physical therapy at [facility], hopefully [facility] will take her and she might discharge when she is accepted and she is ready to go. She is here for a few things; cirrhosis of the liver, metabolic encephalopathy, pancytopenia, alcohol abuse and hopefully she will be discharged to a [facility]. Roc Acosta DO
[2018-09-22] MEDS: Sodium Chloride 0.45% 1,000 ML IV SCH (09:20)
[2018-09-22] MEDS: buPROPion SR 150 MG TABLET PO SCH (10:55)
[2018-09-22] MEDS: Pantoprazole 40 mg EC Tab PO SCH (11:00)
--- NOTE | 2018-09-22 13:41 | PN ---
DATE: 09/22/2018 NEUROLOGY FOLLOWUP CHIEF COMPLAINT: Altered mental status. SUBJECTIVE: The patient is 58-year-old woman with past medical history of decompensated alcoholic cirrhosis secondary to altered mental status resulted in hepatic encephalopathy. She has active decompensated cirrhosis, grade 2 hepatic encephalopathy complicated by alcoholic hepatitis, moderate portal hypertensive gastropathy. GI is on board. Today's her ammonia level is elevated to 105. She follows simple commands, moving all extremities. No asterixis seen on examination. She is on low sodium high-protein diet. PAST MEDICAL HISTORY: Decompensated alcoholic cirrhosis, EtOH abuse, hypertension and dyslipidemia. FAMILY HISTORY: Noncontributory. SOCIAL HISTORY: History of drug use, history of daily alcohol use and occasional smoking. REVIEW OF SYSTEMS: A 14-point review of systems is negative except as per the HPI. MEDICATIONS: Reviewed by nurses' reconciliation sheet. ALLERGIES: NO KNOWN DRUG ALLERGIES. PHYSICAL EXAMINATION VITAL SIGNS: Temperature 98.4, pulse rate of 80, blood pressure is 102/68, respiratory rate of 18, oxygen saturation 99% on room air. GENERAL: The patient is sitting up in bed, in no acute distress. HEENT: Head is atraumatic and normocephalic. PERRLA. Extraocular muscles intact. NECK: Supple. No JVD. No adenopathy noted. LUNGS: Clear to auscultation. No adventitious sounds. HEART: S1 and S2. Normal rate and rhythm. No murmurs, rubs or gallops. ABDOMEN: Soft, nontender, nondistended. Bowel sounds present. EXTREMITIES: No clubbing. No cyanosis. Peripheral pulses are 2+ felt bilaterally. NEUROLOGIC: The patient is alert and oriented to person and place, but not much to month or year. Recall after 5 minutes is 0/3. Poor attention span, slow thought process. Cranial nerves II through XII are intact. Motor: Moves all extremities equally. No pronator drift seen. Sensory: Decreased light touch and pinprick up to the calves bilaterally. Decreased vibration at the toes. DTRs are 2+ throughout and 1 at both knees and ankles. Coordination: [id number] intact. No dysmetria noted. Gait is deferred for now. LABORATORY DATA: Today's sodium is 135, potassium 3.4, chloride 109, carbon dioxide 20, BUN of 4, creatinine 0.6, random glucose 71, and ammonia level 105. IMPRESSION: Altered mental status is secondary to hepatic encephalopathy from decompensated alcoholic cirrhosis, superimposed underlying moderate portal hypertensive gastropathy. At this time, we would recommend the patient ammonia level is 105. At this time, we would recommend a low-sodium high-protein diet and lactulose 20 mg p.o. b.i.d. and titrate bowel movements today. Monitor electrolytes and correct accordingly. Followup with GI. Charly Lockhart MD
[2018-09-22 13:42] VITALS: BP 112/74; TEMP 98.1
[2018-09-22 16:31] VITALS: PULSE 83
== END 2018-09-23 | DRG 205 ==
LOC: ED 20:13 → ERH 22:54 → 2RNO 09-18 00:38 → 2RSO 09-18 05:08 → 2RNO 09-18 06:40
PROVIDERS: ADMIT Family Medicine; ATTEND Family Medicine
DX: K72.90 Hepatic failure, unspecified without coma (principal); K70.30 Alcoholic cirrhosis of liver without ascites; D61.818 Other pancytopenia; K70.10 Alcoholic hepatitis without ascites; K76.6 Portal hypertension; G93.41 Metabolic encephalopathy; I10 Essential (primary) hypertension; D68.9 Coagulation defect, unspecified; E78.5 Hyperlipidemia, unspecified; E11.9 Type 2 diabetes mellitus without complications; F10.10 Alcohol abuse, uncomplicated; F17.200 Nicotine dependence, unspecified, uncomplicated; F41.9 Anxiety disorder, unspecified; I85.00 Esophageal varices without bleeding; K31.819 Angiodysplasia of stomach and duodenum without bleeding; K64.1 Second degree hemorrhoids; Z91.14 Patient's other noncompliance with medication regimen